=== PATIENT | male | born 1960 | race Caucasian/White ===

== ENCOUNTER 2016-03-08 07:30 | Inpatient (IN) ==
--- NOTE | 2016-03-04 09:38 | Cardiothoracic History & Phys ---
History of Present Illness Chief complaint: chest discomfort History of present illness: Mr. Cochran is a 55 year old male who presented to Dr. Wheat and 4 cardiac evaluation because of increasing symptoms of chest discomfort over the past 10 days. His had no symptoms of heart failure nor any strokelike symptoms. He is not diabetic but is hypertensive. He underwent cardiac catheterization as part of his evaluation which demonstrated significant coronary disease and he is to be admitted for urinary bypass surgery on 03/09/2016. Past medical history: Past medical history significant for hypertension and hyperlipidemia but otherwise has been relatively free of serious medical illnesses. He has had a hernia repair in the past and wrist surgery. There is history of premature coronary disease in both his mother and father side of the family. Review of systems noncontributory to the present illness and social history shows patient is a nonsmoker who does not drink alcohol. Physical examination: Patient is well-developed well-nourished man in no acute distress. Examination of the HEENT show the pupils are equal and react to light and extraocular motions are intact the oropharynx is benign. Seminal a snow of the neck shows that there are no masses and there are no bruits there is no thyromegaly. Examination chest shows it is clear to percussion and auscultation. Examination of heart reveals a regular sinus rhythm and there are no murmurs. Examination the abdomen shows no tenderness and there are no masses or organomegaly. Examination extremities shows no cyanosis or edema. Neurological exam is grossly intact. Assessment: Severe coronary artery disease Plan coronary bypass surgery 03/09/2016. Home Medications Medication Instructions Recorded Confirmed Type Aspirin [Ecotrin] 81 mg PO DAILY 02/24/16 02/24/16 History B Complex with Vitamin C [Vitamin 1 each PO DAILY 02/24/16 02/24/16 History B-Complex with Vit C] Co Q 10 50 mg PO DAILY 02/24/16 02/24/16 History Fosinopril Sodium 10 mg PO DAILY 02/24/16 02/24/16 History Metoprolol Succinate Xl [Toprol Xl] 25 mg PO DAILY 02/24/16 02/24/16 History Rosuvastatin Calcium [Crestor] 10 mg PO DAILY 02/24/16 02/24/16 History Allergies Allergy/AdvReac Type Severity Reaction Status Date / Time No Known Allergies Allergy Unverified 02/23/16 14:49 Medical,Surgical,& Family Hx - Medical History Neurology: No history of: Seizures - Social History Smoking Status: Never smoker
[~2016-03-08 07:30] MED LIST: DEXTROSE 50% 25 GM/50 ML VIAL IV PRN; GLUCAGON 1 MG VIAL IM PRN
[2016-03-08] MEDS ORDERED: ASPIRIN EC 81 MG TABLET PO SCH ×2 (09:00→21:00)
[2016-03-08] MEDS ORDERED: ROSUVASTATIN 10 MG TABLET PO SCH ×2 (09:00→21:00)
[2016-03-08] MEDS ORDERED: METOPROLOL SUCCINATE XL 25 MG TABLET PO SCH ×2 (09:00→21:00)
[2016-03-08 09:29] LABS: Basophils # 0.1 10*3/uL (0.0-0.2); Basophils % 1.1 % (0.0-0.8); Eosinophils # 0.3 10*3/uL (0.0-0.87); Hematocrit 42.4 VOL% (42.0-52.0); Hemoglobin 14.5 GM/DL (14.0-18.0); Immature Granulocytes % 0.2 %; Immature Granulocytes Absolute 0.01 #; Lymphocytes # 1.4 10*3/uL (1.4-4.0); Lymphocytes % 25.2 % (21.2-54.2); Mean Corpuscular HGB Conc 34.2 GM/DL (32-36); Mean Corpuscular Hemoglobin 30 PG (27-34); Mean Corpuscular Volume 88.7 FL (87-102); Mean Platelet Volume 9.4 FL (9.6-12.0); Monocytes # 0.6 10*3/uL (0.11-0.8); Neutrophils # 3.2 10*3/uL (1.4-7.4); Neutrophils % 57.5 % (38.7-73.9); Platelet Count 175 10*3/uL (130-400); Red Blood Count 4.78 10*6/uL (3.8-5.5); Red Cell Distribution Width 12.2 % (9.3-17.3); White Blood Count 5.6 10*3/uL (4.5-13.71)
[2016-03-08] MEDS ORDERED: CEFUROXIME INJ 1,500 MG in SODIUM CHLORIDE 0.9% 100 ML IV ONE (09:38)
[2016-03-08] MEDS ORDERED: SODIUM CHLORIDE 0.9% 1,000 ML IV SCH (10:00)
[2016-03-08 10:12] LABS: Albumin 3.8 G/DL (3.4-5.0); Bilirubin,Total 0.6 MG/DL (0.2-1.0); Calcium 8.5 MG/DL (8.5-10.1); Osmolality,Calculated 284.8 MOS/KG (273-304); Potassium 4.4 MMOL/L (3.5-5.1); Total Protein 6.5 G/DL (6.4-8.3)
--- NOTE | 2016-03-08 14:15 | XRay Report ---
XR chest 2V Indication: CAD Comparison: Chest x-ray dated February 24, 2016 Technique: Frontal and lateral views of the chest Findings: Heart size appears within normal limits. No focal consolidation, pleural effusion, or pneumothorax. Osseous and surrounding soft tissue structures appear grossly unchanged. IMPRESSION: No acute cardiopulmonary process demonstrated. PROCEDURE INTERPRETED AT [facility] DEPARTMENT OF RADIOLOGY Final Report Signed by: Dr Fortino Steele
[2016-03-08] MEDS: CHLORHEXIDINE 4% SOLN 118 ML BOTTLE TOP SCH ×2 (15:44→20:55)
[2016-03-08 18:11] LABS: ABG Base Excess 1.4 MMOL/L (-2.5-2.5); ABG HCO3 25.6 MMOL/L (20-26); ABG Oxygen Saturation 97.3 % (95-100); ABG PCO2 39.7 MM HG (35-48); ABG PH 7.421 (7.35-7.45); ABG PO2 86.9 MM HG (80-95); ABG TCO2 22.1 MMOL/L (23-27)
[2016-03-08] MEDS: CHLORHEXIDINE 0.12% ORAL RINSE 60 ML BOTTLE SWISH/SPIT SCH (21:02)
[2016-03-09] MEDS ORDERED: PAPAVERINE 60 MG/2 ML VIAL ONE ×2 (04:43→09:17)
[2016-03-09] MEDS ORDERED: VANCOMYCIN 1,000 MG VIAL ONE (04:44)
[2016-03-09] MEDS: CHLORHEXIDINE 0.12% ORAL RINSE 60 ML BOTTLE SWISH/SPIT SCH ×3 (05:53→21:40)
[2016-03-09] MEDS: CHLORHEXIDINE 4% SOLN 118 ML BOTTLE TOP SCH ×2 (05:53→13:40)
[2016-03-09] MEDS ORDERED: CEFUROXIME INJ 1,500 MG in SODIUM CHLORIDE 0.9% 100 ML IV ONE (06:00)
[2016-03-09] MEDS ORDERED: PANTOPRAZOLE 40 MG TABLET PO ONE (06:00)
[2016-03-09] MEDS ORDERED: DIAZEPAM 5 MG TABLET PO ONE (06:00)
[2016-03-09] MEDS ORDERED: SODIUM CHLORIDE 0.9% 1,000 ML IV SCH (06:00)
[2016-03-09] MEDS ORDERED: AMINOCAPROIC ACID 5,000 MG/20 ML VIAL IV ONE (06:42)
[2016-03-09] MEDS ORDERED: MINERAL OIL/PETROLATUM OPH OINT 3.5 GM TUBE ONE (06:42)
[2016-03-09] MEDS ORDERED: ESMOLOL 100 MG/10 ML VIAL IV ONE (06:42)
[2016-03-09] MEDS ORDERED: PHENYLEPHRINE 20 MG/250 ML PREMIX IV ONE (06:42)
[2016-03-09] MEDS ORDERED: NITROGLYCERIN 50 MG/250 ML BOTTLE IV ONE (06:42)
[2016-03-09] MEDS ORDERED: VECURONIUM 10 MG VIAL IV ONE (06:42)
[2016-03-09] MEDS ORDERED: LIDOCAINE 100 MG/5 ML SYRINGE ONE ×2 (06:42→11:05)
[2016-03-09] MEDS ORDERED: CALCIUM CHLORIDE 1,000 MG/10 ML SYRINGE IV ONE ×2 (06:42→09:34)
[2016-03-09 07:34] LABS: ABG Base Excess 2.2 MMOL/L (-2.5-2.5); ABG HCO3 26.5 MMOL/L (20-26); ABG Oxygen Saturation 99.5 % (95-100); ABG PCO2 40.2 MM HG (35-48); ABG PH 7.437 (7.35-7.45); ABG TCO2 27.7 MMOL/L (23-27); Glucose Heart Surgery 92 MG/DL (74-106); Hemoglobin Heart Surgery 14.6 G/DL (14.0-18.0); Ionized Calcium Arterial 1.12 MMOL/L (1.21-1.46); PCO2 Patient Temp Arterial 40.2 MMHG; PH Patient Temp Arterial 7.437; Patient Temperature 37 CELCIUS; Potassium Heart/CVR 3.9 MMOL/L (3.5-5.1); Sodium Heart/CVR 138 MMOL/L (135-145)
[2016-03-09 08:07] LABS: Apearance,Urine CLEAR (Clear); Bilirubin,Urine Negative (Negative); Blood, Urine Negative (Negative); Glucose,Urine (UA) Negative (Negative); Ketones,Urine Negative (Negative); Mucus,Urine Occasional /LPF (Occasional); Nitrite,Urine Negative (Negative); Protein,Urine Negative; RBC,Urine 5 /HPF (0-4); Squamous Epithelial Cell,Urine Occasional /HPF (0-10); Urine Color Yellow (Yellow); Urine Specific Gravity 1.018 (1.001-1.035); Urine Urobilinogen < 2.0 EU/DL (0.2-1.0); WBC,Urine <1 /HPF (0-6)
[2016-03-09 08:57] LABS: Hematocrit Heart Surgery 30.7 PERCENT (42-52); Hemoglobin Heart Surgery 9.9 G/DL (14.0-18.0); PCO2 Patient Temp Venous 38.8 MM HG; PH Patient Temp Venous 7.428; PO2 Patient Temp Venous 38.1 MM HG; Potassium Heart/CVR 4.5 MMOL/L (3.5-5.1); VBG Base Excess 1.4 MEQ/L (0-4); VBG HCO3 25.5 MEQ/L (24-28); VBG PCO2 44.9 MMHG (41-51); VBG PH 7.385; VBG PO2 46.9 MMHG (17-40)
[2016-03-09] MEDS ORDERED: HEPARIN 1,000 UNIT/1 ML VIAL ONE (09:17)
[2016-03-09] MEDS ORDERED: PHENYLEPHRINE DRIP 40 MG/250 ML PREMIX IV ONE (09:33)
[2016-03-09] MEDS ORDERED: NITROPRUSSIDE 50 MG/2 ML VIAL ONE (09:33)
[2016-03-09] MEDS ORDERED: SODIUM BICARBONATE 50 MEQ/50 ML VIAL IV ONE ×2 (09:33→11:05)
[2016-03-09] MEDS ORDERED: POTASSIUM CHLORIDE RIDER 100 ML IV ONE (09:34)
[2016-03-09 10:02] LABS: PCO2 Patient Temp Venous 36.6 MM HG; PH Patient Temp Venous 7.462; PO2 Patient Temp Venous 35.2 MM HG; Potassium Heart/CVR 4.3 MMOL/L (3.5-5.1); VBG Base Excess 2.5 MEQ/L (0-4); VBG HCO3 26.3 MEQ/L (24-28); VBG Oxygen Saturation 81.4 %; VBG PCO2 42.3 MMHG (41-51); VBG PH 7.418; VBG PO2 43.4 MMHG (17-40)
[2016-03-09 11:02] LABS: ABG Base Excess 1.6 MMOL/L (-2.5-2.5); ABG HCO3 26.1 MMOL/L (20-26); ABG Oxygen Saturation 98.2 % (95-100); ABG PCO2 40.6 MM HG (35-48); ABG PH 7.426 (7.35-7.45); ABG PO2 127.1 MM HG (80-95); ABG TCO2 27.3 MMOL/L (23-27); Glucose Heart Surgery 155 MG/DL (74-106); Hemoglobin Heart Surgery 12.7 G/DL (14.0-18.0); Ionized Calcium Arterial 1.28 MMOL/L (1.21-1.46); PCO2 Patient Temp Arterial 40.6 MMHG; PH Patient Temp Arterial 7.426; PO2 Patient Temp Arterial 127.1 MM HG; Patient Temperature 37 CELCIUS; Potassium Heart/CVR 3.5 MMOL/L (3.5-5.1); Sodium Heart/CVR 135 MMOL/L (135-145)
[2016-03-09] MEDS ORDERED: ALBUMIN 25% 25 GM/100 ML VIAL IV ONE (11:05)
[2016-03-09] MEDS ORDERED: PROTAMINE SULFATE 250 MG/25 ML VIAL IV ONE (11:05)
[2016-03-09] MEDS ORDERED: DEXTROSE 5% KCL 20 MEQ 20 MEQ/1,000 ML BAG IV ONE (11:05)
[2016-03-09] MEDS ORDERED: PHENYLEPHRINE DRIP 20 MG/250 ML PREMIX IV ONE (11:06)
[2016-03-09] MEDS ORDERED: HEPARIN 10,000 UNIT/10 ML VIAL ONE (11:06)
[2016-03-09] MEDS ORDERED: MANNITOL 12.5 GM/50 ML VIAL IV ONE (11:06)
[2016-03-09] MEDS ORDERED: MAGNESIUM SULFATE 1 GM/2 ML VIAL ONE (11:06)
[2016-03-09] MEDS ORDERED: FUROSEMIDE 20 MG/2 ML VIAL ONE (11:06)
[2016-03-09] MEDS ORDERED: methylPREDNISolone SOD SUC 1,000 MG/8 ML VIAL ONE (11:06)
--- NOTE | 2016-03-09 11:57 | Operative Note ---
Date of procedure: 03/09/16 Pre-op diagnosis: coronary artery disease Post-op diagnosis: same Procedure: Procedure: Coronary artery bypass grafting 4 with the left internal mammary grafted anterior descending coronary artery and saphenous vein grafts to the diagonal circumflex marginal and right coronary arteries. Findings: Patient is a 55-year-old man who in the remote past at undergone stent to his anterior descending coronary artery which subsequently was completely occluded. He has developed recent increase in his chest discomfort and cardiac catheterization demonstrated significant left main coronary stenosis and significant right coronary artery stenosis and occlusion of the anterior descending coronary artery. The time of surgery left ventricular function was noted to be essentially normal. The anterior descending coronary artery was a fairly large vessel beyond the area of occlusion and it was grafted using the left internal mammary artery. Saphenous vein grafts were placed to a large diagonal to a small circumflex marginal and to a large right coronary artery. Patient tolerated the procedure well was returned recovery in satisfactory condition. Procedure: Patient brought to the operating room placed on the operating table in supine position. After satisfactory induction of general anesthesia the chest abdomen and legs were prepped and draped in a sterile fashion. Greater saphenous vein was harvested from each lower leg and prepared as an arterial graft. Incisions in the leg were closed with 30 subcutaneous cutaneous Monopril and 3-0 subcuticular Monocryl. Standard sternotomy incision was made and the sternum was divided. Heart was suspended in a pericardial cradle and the left internal mammary artery was dissected free and prepared as an arterial graft. Patient was prepared for cardiopulmonary bypass with systemic heparinization and cannulation of the right atrium and ascending aorta. Cardiopulmonary bypass was begun and the aorta was crossclamped and the heart arrested with cardioplegia solution injected into the aortic root. Heart was protected during the period of crossclamping with topical saline slush. Distal anastomoses were constructed as noted above and following completion of these the aortic cross-clamp was removed reestablished and cardiac action. Proximal anastomoses were can flex constructed between the inflow ends of the saphenous vein graft and the ascending aorta. When these were completed the patient was weaned from cardiopulmonary bypass without difficulty and heparin effect reversed with protamine. Decannulation was carried out in the usual fashion with the defects in the ascending aorta closed with 3-0 Prolene and the defect in the right atrium also closed with 3-0 Prolene. The operative field was inspected for hemostasis when this was considered adequate the incision was closed with interrupted stainless steel wire and the sternum and 0 Monopril and the presternal fascia. Skin was closed with running subcuticular 3-0 Monocryl. 2 chest tubes were left in the anterior mediastinum and brought out through separate stab incision. Sterile dressings were applied and the patient was returned recovery in satisfactory condition. Anesthesia: PADMINI Surgeon / Physician: Lowell Lopez Estimated blood loss: other Specimens: (unable to determine because of cardiopulmonary bypass) Condition: stable Disposition: ICU Results - Labs CBC & BMP: 03/09/16 10:55 03/08/16 09:22 Discharge Plan - Discharge Medications No Action Metoprolol Succinate Xl [Toprol Xl] 25 mg PO BEDTIME Aspirin [Ecotrin] 81 mg PO BEDTIME Rosuvastatin Calcium [Crestor] 10 mg PO BEDTIME Fosinopril Sodium 10 mg PO BEDTIME B Complex with Vitamin C [Vitamin B-Complex with Vit C] 1 each PO BEDTIME Co Q 10 50 mg PO BEDTIME - Follow Up or Referral - Forms/Instructions
[2016-03-09] MEDS ORDERED: LACTATED RINGERS 250 ML IV PRN (11:59)
[2016-03-09] MEDS ORDERED: POTASSIUM CHLORIDE RIDER 10 MEQ in PREMIX 1 EACH IV PRN (11:59)
[2016-03-09] MEDS ORDERED: MORPHINE 2 MG/1 ML SYRINGE IV PRN (11:59)
[2016-03-09] MEDS ORDERED: PHENYLEPHRINE DRIP 40 MG/250 ML PREMIX IV PRN (11:59)
[2016-03-09] MEDS ORDERED: MORPHINE 10 MG/1 ML VIAL IV PRN (11:59)
[2016-03-09] MEDS ORDERED: NITROPRUSSIDE 100 MG in DEXTROSE 5% 250 ML IV PRN (11:59)
[2016-03-09] MEDS ORDERED: INSULIN REGULAR 100 UNIT/ML IV PRN (11:59)
[2016-03-09] MEDS ORDERED: DEXTROSE 50% 25 GM/50 ML VIAL IV PRN ×2 (11:59)
[2016-03-09] MEDS ORDERED: MAGNESIUM SULF RIDER 2 GM in PREMIX 1 EACH IV PRN (11:59)
[2016-03-09] MEDS ORDERED: VECURONIUM 10 MG VIAL IV PRN ×2 (11:59)
[2016-03-09] MEDS ORDERED: MAGNESIUM SULF RIDER 4 GM in PREMIX 1 EACH IV PRN (11:59)
[2016-03-09] MEDS ORDERED: ACETAMINOPHEN 650 MG SUPP RECTAL PRN (11:59)
[2016-03-09] MEDS ORDERED: ONDANSETRON 4 MG/2 ML VIAL IV PRN (11:59)
[2016-03-09] MEDS ORDERED: CALCIUM CHLORIDE 1,000 MG/10 ML SYRINGE IV PRN (11:59)
[2016-03-09] MEDS ORDERED: MIDAZOLAM 10 MG/2 ML VIAL IV PRN (11:59)
[2016-03-09] MEDS ORDERED: INSULIN REGULAR 100 UNIT/ML IV ONE ×2 (11:59→13:00)
[2016-03-09] MEDS ORDERED: SUFentanil 250 MCG/5 ML AMP ONE (12:00)
[2016-03-09] MEDS ORDERED: INSULIN REGULAR DRIP 100 ML IV SCH (12:00)
[2016-03-09] MEDS ORDERED: SODIUM CHLORIDE 0.45% 1,000 ML IV SCH ×2 (12:00)
[2016-03-09] MEDS ORDERED: SEVOFLURANE 1 UNIT/15 MINUTE INH ONE (12:00)
[2016-03-09] MEDS ORDERED: SODIUM CHLORIDE 0.9% 100 ML IV ONE (12:01)
[2016-03-09] MEDS ORDERED: LACTATED RINGERS 1,000 ML IV ONE (12:01)
[2016-03-09] MEDS ORDERED: MIDAZOLAM 10 MG/2 ML VIAL ONE (12:01)
[2016-03-09] MEDS ORDERED: ePHEDrine 50 MG/ML AMP ONE (12:01)
[2016-03-09] MEDS ORDERED: SODIUM CHLORIDE 0.9% 250 ML IV ONE (12:01)
[2016-03-09] MEDS ORDERED: SODIUM CHLORIDE 0.9% 1,000 ML IV ONE (12:01)
[2016-03-09] MEDS ORDERED: PROTAMINE SULFATE 50 MG/5 ML VIAL IV ONE ×2 (12:04→13:24)
[2016-03-09 12:13] LABS: ABG Base Excess -0.6 MMOL/L (-2.5-2.5); ABG HCO3 23.6 MMOL/L (20-26); ABG Oxygen Saturation 97.8 % (95-100); ABG PCO2 37.5 MM HG (35-48); ABG PH 7.417 (7.35-7.45); ABG PO2 105.6 MM HG (80-95); ABG TCO2 24.8 MMOL/L (23-27); Glucose Heart Surgery 146 MG/DL (74-106); Hemoglobin Heart Surgery 12.3 G/DL (14.0-18.0); Potassium Heart/CVR 3.2 MMOL/L (3.5-5.1)
[2016-03-09] MEDS: POTASSIUM CHLORIDE RIDER 20 MEQ in PREMIX 1 EACH IV PRN ×5 (12:15→23:05)
[2016-03-09] MEDS: ALBUMIN 5% 12.5 GM in PREMIX 1 EACH IV PRN ×5 (12:15→22:16)
[2016-03-09 12:17] LABS: Basophils % 0.2 % (0.0-0.8); Eosinophils # 0.1 10*3/uL (0.0-0.87); Eosinophils % 0.6 % (0.00-10.9); Hematocrit 34.2 VOL% (42.0-52.0); Hemoglobin 11.7 GM/DL (14.0-18.0); Immature Granulocytes % 0.7 %; Lymphocytes # 1.1 10*3/uL (1.4-4.0); Lymphocytes % 8.1 % (21.2-54.2); Mean Corpuscular HGB Conc 34.2 GM/DL (32-36); Mean Corpuscular Hemoglobin 31 PG (27-34); Mean Corpuscular Volume 89.3 FL (87-102); Mean Platelet Volume 9.7 FL (9.6-12.0); Monocytes # 0.7 10*3/uL (0.11-0.8); Monocytes % 4.8 % (1.7-12.7); Neutrophils # 11.6 10*3/uL (1.4-7.4); Neutrophils % 85.6 % (38.7-73.9); Platelet Count 135 10*3/uL (130-400); Red Blood Count 3.83 10*6/uL (3.8-5.5); Red Cell Distribution Width 12.3 % (9.3-17.3); White Blood Count 13.5 10*3/uL (4.5-13.71)
[2016-03-09 12:27] LABS: INR 1.2; PT Patient Result 12.7 SECS; Partial Thromboplastin Time 32.7 SECS (0-40)
[2016-03-09 12:51] LABS: Bilirubin,Total 1.6 MG/DL (0.2-1.0); Calcium 7.7 MG/DL (8.5-10.1); Magnesium 2.1 MG/DL (1.8-2.4); Osmolality,Calculated 295.3 MOS/KG (273-304); Potassium 3.6 MMOL/L (3.5-5.1); Total Protein 4.8 G/DL (6.4-8.3)
[2016-03-09] MEDS: MIDAZOLAM 2 MG/2 ML VIAL IV PRN ×2 (12:55→14:17)
[2016-03-09 13:00] LABS: CKMB % 15.6 %
[2016-03-09 13:09] LABS: Troponin I Only 4.35 NG/ML (0.00-0.045)
--- NOTE | 2016-03-09 13:14 | XRay Report ---
Referring Physician: Lowell Lopez Exam: XR chest 1V portable Date: March 09, 2016 at 12:35 PM Reason: Line placement Comparison: Chest 2 views March 08, 2016 Findings: An endotracheal tube is in place with its distal tip at the level of the sternoclavicular junctions, approximately 4.5 cm above the joel. A feeding tube is in place, extending into the stomach and beyond the [id number]. Mediastinal drains are suspected. There is a Atwood-Molly catheter with its distal tip in the region of the right descending pulmonary artery, and a right IJ catheter is present with its distal tip at the SVC/right atrial junction. The cardiac silhouette is normal in size, but the patient is status post interval sternotomy. There is minimal scattered atelectasis within both lower lung zones. There is also a questionable minimal pneumothorax at the right lung apex. The osseous structures otherwise appear stable. Impression: 1. Tubes and lines as above. 2. Interval sternotomy. 3. Minimal scattered atelectasis within both lower lung zones. 4. Questionable minimal pneumothorax at the right lung apex. A followup chest x-ray is recommended. This was discussed with the patient's nurse in CVR on March 09, 2016 at 10:10 PM. PROCEDURE INTERPRETED AT [facility] DEPARTMENT OF RADIOLOGY Final Report Signed by: Dr. Patsy Ortiz
[2016-03-09] MEDS: KETOROLAC 30 MG/1 ML VIAL IV SCH ×2 (13:36→18:00)
[2016-03-09 13:52] LABS: ABG Base Excess -0.2 MMOL/L (-2.5-2.5); ABG HCO3 24.3 MMOL/L (20-26); ABG PCO2 39.4 MM HG (35-48); ABG PH 7.401 (7.35-7.45); ABG TCO2 21.9 MMOL/L (23-27); Glucose Heart Surgery 165 MG/DL (74-106); Hematocrit Heart Surgery 34.3 PERCENT (42-52); Hemoglobin Heart Surgery 11.1 G/DL (14.0-18.0); Potassium Heart/CVR 3.3 MMOL/L (3.5-5.1)
--- NOTE | 2016-03-09 14:05 | Cardiology Consult Note ---
Assessment and Plan (1) Left main coronary artery disease Status: Acute Assessment and plan: 1. 55-year-old WF with controlled hypertension, treated dyslipidemia, status post non-STEMI postoperatively in 2002 after orthopedic surgery with LAD stenting and diagonal angioplasty at that time with good result. He now has several months of worsening exertional angina, and three-vessel disease noted at catheterization or this month including greater than 50% distal left main disease involving the ostium of the LAD. He is now immediately status post 4 vessel CABG hemodynamic stable 2. Cardiac index is modestly diminished as expected postoperatively a 2.2 L/m/m 3. Sinus mechanism rated the 90s 4. On modest doses of Hari-Synephrine 5. Hemoglobin stable 6. Normal LV function by left ventriculogram revealed this month Current Visit: Yes History of Present Illness - Consult Narrative History of present illness: Mr. Cochran is a 55 year old male well known to me status post non-STEMI postoperatively in 2002 after orthopedic surgery. I stented his significant LAD disease at that time and angioplasty his diagonal with good result. In recent months he developing episodes of exertional chest discomfort with stress test showing significant anteroapical ischemia. At heart catheterization early this month he was found to have in-stent occlusion of his mid LAD, with intermediate circumflex and RCA disease with normal LV function. He also had significant distal left main stenosis. He is now immediately status post CABG. He is still intubated and sedated. CC: Lowell Lopez MD - Home Medications and Allergies Home Medications: Home Medications Medication Instructions Recorded Confirmed Type Aspirin [Ecotrin] 81 mg PO BEDTIME 02/24/16 03/08/16 History B Complex with Vitamin C [Vitamin 1 each PO BEDTIME 02/24/16 03/08/16 History B-Complex with Vit C] Co Q 10 50 mg PO BEDTIME 02/24/16 03/08/16 History Fosinopril Sodium 10 mg PO BEDTIME 02/24/16 03/08/16 History Metoprolol Succinate Xl [Toprol Xl] 25 mg PO BEDTIME 02/24/16 03/08/16 History Rosuvastatin Calcium [Crestor] 10 mg PO BEDTIME 02/24/16 03/08/16 History Allergies/Adverse Reactions: Allergies Allergy/AdvReac Type Severity Reaction Status Date / Time Amoxicillin AdvReac Severe Vomiting Verified 03/08/16 09:50 Medical,Surgical,& Family Hx - Medical History Cardio: History of: CAD, Hypertension, SD Neurology: No history of: Seizures Endocrine: History of: Dyslipidemia - Surgical History Cardiac Surgeries: Sugical HX of: Cardiac Catheterization Orthopedic Surgeries: Surgical HX of;: Orthopedic Surgery (L wrist) - Family History Family History: Reports;: Family Heart Disease (father), Family Hypertension ( father), Family Stroke (sister) - Social History Smoking Status: Never smoker Frequency of Alcohol Use: Rarely Type of Drug Use: None Physical Examination Vital Signs Temp Pulse Resp BP Pulse Ox 98.1 F 59 L 18 127/77 97 03/08/16 09:49 03/08/16 09:49 03/08/16 09:49 03/08/16 09:49 03/08/16 09:49 General: Present: Other (intubated and sedated) Neck: Present: Midline Trachea Cardiac: Present: Reg Rate and Rhythm. Absent: Systolic Murmur, Diastolic Murmur Lungs: Present: Clear Ascult./Percussion (supine patient) Neuro: Present: Other Abdomen: Present: Soft Extremities: Present: No Edema. Absent: Cool Result/EKG - Labs CBC & BMP: 03/09/16 12:02 03/09/16 12:02 Labs: Laboratory Results - last 24 hr 03/08/16 03/08/16 03/09/16 09:22 Unknown 07:30 WBC RBC Hgb Hct MCV MCH MCHC RDW Plt Count 130 D MPV Neut % (Auto) Lymph % (Auto) [place] % (Auto) Eos % (Auto) Baso % (Auto) Neut # (Auto) Lymph # (Auto) [place] # (Auto) Eos # (Auto) Baso # (Auto) Immature Gran % Nucleated RBC % Immature Gran # Nucleated RBCs # INR PT Patient/Control Mix Circ Anticoag PTT Patient Temperature ABG pH 7.421 ABG pH at Pt Temp ABG pCO2 39.7 ABG pCO2 at Pt Temp ABG pO2 86.9 ABG pO2 at Pt Temp ABG HCO3 25.6 ABG Total CO2 22.1 L ABG O2 Saturation 97.3 ABG Base Excess 1.4 ABG Sodium VBG pH VBG pCO2 VBG pO2 VBG HCO3 VBG Total CO2 VBG O2 Saturation VBG Base Excess Hemoglobin Hematocrit Potassium Glucose Ionized Calcium FiO2 21.00 Sodium Chloride Carbon Dioxide Anion Gap BUN Creatinine GFR Calculation BUN/Creatinine Ratio Calculated Osmolality Calcium Venous Ioniz Calcium Magnesium Total Bilirubin AST ALT Alkaline Phosphatase Total Creatine Kinase CK-MB (CK-2) CK and CKMB Interp Troponin I Total Protein Albumin Globulin Albumin/Globulin Ratio Urine Color Urine Appearance Urine pH Ur Specific [place] Urine Protein Urine Glucose (UA) Urine Ketones Urine Blood Urine Nitrate Urine Bilirubin Urine Urobilinogen Urine Leukocytes Urine RBC Urine WBC Ur Squamous Epith Cells Urine Mucus Ur Culture Indicated? Blood Type O POSITIVE Antibody Screen Negative Crossmatch See Detail 03/09/16 03/09/16 03/09/16 07:30 07:48 08:55 WBC RBC Hgb Hct MCV MCH MCHC RDW Plt Count MPV Neut % (Auto) Lymph % (Auto) [place] % (Auto) Eos % (Auto) Baso % (Auto) Neut # (Auto) Lymph # (Auto) [place] # (Auto) Eos # (Auto) Baso # (Auto) Immature Gran % Nucleated RBC % Immature Gran # Nucleated RBCs # INR PT Patient/Control Mix Circ Anticoag PTT Patient Temperature 37 34 ABG pH 7.437 ABG pH at Pt Temp 7.437 7.428 ABG pCO2 40.2 ABG pCO2 at Pt Temp 40.2 38.8 ABG pO2 410.0 H ABG pO2 at Pt Temp 410.0 38.1 ABG HCO3 26.5 H ABG Total CO2 27.7 H ABG O2 Saturation 99.5 ABG Base Excess 2.2 ABG Sodium 138 133 L VBG pH 7.385 VBG pCO2 44.9 VBG pO2 46.9 H VBG HCO3 25.5 VBG Total CO2 24.5 VBG O2 Saturation 84.0 VBG Base Excess 1.4 Hemoglobin 14.6 9.9 L Hematocrit 43.0 30.7 L Potassium 3.9 4.5 Glucose 92 243 H Ionized Calcium 1.12 L FiO2 80.00 Sodium Chloride Carbon Dioxide Anion Gap BUN Creatinine GFR Calculation BUN/Creatinine Ratio Calculated Osmolality Calcium Venous Ioniz Calcium 0.96 L Magnesium Total Bilirubin AST ALT Alkaline Phosphatase Total Creatine Kinase CK-MB (CK-2) CK and CKMB Interp Troponin I Total Protein Albumin Globulin Albumin/Globulin Ratio Urine Color Yellow Urine Appearance Clear Urine pH 6.0 Ur Specific [place] 1.018 Urine Protein Negative Urine Glucose (UA) Negative Urine Ketones Negative Urine Blood Negative Urine Nitrate Negative Urine Bilirubin Negative Urine Urobilinogen < 2.0 H Urine Leukocytes Negative Urine RBC 5 Urine WBC <1 Ur Squamous Epith Cells Occasional Urine Mucus Occasional Ur Culture Indicated? Not indicated Blood Type Antibody Screen Crossmatch 03/09/16 03/09/16 03/09/16 09:55 10:55 10:55 WBC RBC Hgb Hct MCV MCH MCHC RDW Plt Count 100 L D MPV Neut % (Auto) Lymph % (Auto) [place] % (Auto) Eos % (Auto) Baso % (Auto) Neut # (Auto) Lymph # (Auto) [place] # (Auto) Eos # (Auto) Baso # (Auto) Immature Gran % Nucleated RBC % Immature Gran # Nucleated RBCs # INR PT Patient/Control Mix Circ Anticoag PTT Patient Temperature 34 37 ABG pH 7.426 ABG pH at Pt Temp 7.462 7.426 ABG pCO2 40.6 ABG pCO2 at Pt Temp 36.6 40.6 ABG pO2 127.1 H ABG pO2 at Pt Temp 35.2 127.1 ABG HCO3 26.1 H ABG Total CO2 27.3 H ABG O2 Saturation 98.2 ABG Base Excess 1.6 ABG Sodium 134 L 135 VBG pH 7.418 VBG pCO2 42.3 VBG pO2 43.4 H VBG HCO3 26.3 VBG Total CO2 24.3 VBG O2 Saturation 81.4 VBG Base Excess 2.5 Hemoglobin 12.0 L D 12.7 L Hematocrit 37.0 L 37.0 L Potassium 4.3 3.5 Glucose 204 H 155 H Ionized Calcium 1.28 FiO2 80.00 Sodium Chloride Carbon Dioxide Anion Gap BUN Creatinine GFR Calculation BUN/Creatinine Ratio Calculated Osmolality Calcium Venous Ioniz Calcium 1.08 L Magnesium Total Bilirubin AST ALT Alkaline Phosphatase Total Creatine Kinase CK-MB (CK-2) CK and CKMB Interp Troponin I Total Protein Albumin Globulin Albumin/Globulin Ratio Urine Color Urine Appearance Urine pH Ur Specific [place] Urine Protein Urine Glucose (UA) Urine Ketones Urine Blood Urine Nitrate Urine Bilirubin Urine Urobilinogen Urine Leukocytes Urine RBC Urine WBC Ur Squamous Epith Cells Urine Mucus Ur Culture Indicated? Blood Type Antibody Screen Crossmatch 03/09/16 03/09/16 03/09/16 12:02 12:02 12:02 WBC 13.5 D RBC 3.83 Hgb 11.7 L D Hct 34.2 L MCV 89.3 MCH 31 MCHC 34.2 RDW 12.3 Plt Count 135 D MPV 9.7 Neut % (Auto) 85.6 H Lymph % (Auto) 8.1 L [place] % (Auto) 4.8 Eos % (Auto) 0.6 Baso % (Auto) 0.2 Neut # (Auto) 11.6 H Lymph # (Auto) 1.1 L [place] # (Auto) 0.7 Eos # (Auto) 0.1 Baso # (Auto) 0.0 Immature Gran % 0.7 Nucleated RBC % 0.0 Immature Gran # 0.10 Nucleated RBCs # 0.00 INR 1.2 PT Patient/Control Mix 12.7 Circ Anticoag PTT 32.7 D Patient Temperature ABG pH ABG pH at Pt Temp ABG pCO2 ABG pCO2 at Pt Temp ABG pO2 ABG pO2 at Pt Temp ABG HCO3 ABG Total CO2 ABG O2 Saturation ABG Base Excess ABG Sodium VBG pH VBG pCO2 VBG pO2 VBG HCO3 VBG Total CO2 VBG O2 Saturation VBG Base Excess Hemoglobin Hematocrit Potassium 3.6 Glucose 148 H Ionized Calcium FiO2 Sodium 148 H Chloride 113 H Carbon Dioxide 25 Anion Gap 13.6 BUN 11 Creatinine 0.90 GFR Calculation 127 BUN/Creatinine Ratio 12.00 Calculated Osmolality 295.3 Calcium 7.7 L Venous Ioniz Calcium Magnesium 2.1 Total Bilirubin 1.60 H AST 30 ALT 28 Alkaline Phosphatase 47 Total Creatine Kinase CK-MB (CK-2) CK and CKMB Interp Troponin I Total Protein 4.8 L Albumin 3.0 L Globulin 1.8 L Albumin/Globulin Ratio 1.6 Urine Color Urine Appearance Urine pH Ur Specific [place] Urine Protein Urine Glucose (UA) Urine Ketones Urine Blood Urine Nitrate Urine Bilirubin Urine Urobilinogen Urine Leukocytes Urine RBC Urine WBC Ur Squamous Epith Cells Urine Mucus Ur Culture Indicated? Blood Type Antibody Screen Crossmatch 03/09/16 03/09/16 03/09/16 12:02 12:02 13:47 WBC RBC Hgb Hct MCV MCH MCHC RDW Plt Count MPV Neut % (Auto) Lymph % (Auto) [place] % (Auto) Eos % (Auto) Baso % (Auto) Neut # (Auto) Lymph # (Auto) [place] # (Auto) Eos # (Auto) Baso # (Auto) Immature Gran % Nucleated RBC % Immature Gran # Nucleated RBCs # INR PT Patient/Control Mix Circ Anticoag PTT Patient Temperature ABG pH 7.417 7.401 ABG pH at Pt Temp ABG pCO2 37.5 39.4 ABG pCO2 at Pt Temp ABG pO2 105.6 H 174.0 H ABG pO2 at Pt Temp ABG HCO3 23.6 24.3 ABG Total CO2 24.8 21.9 L ABG O2 Saturation 97.8 100.0 ABG Base Excess -0.6 -0.2 ABG Sodium VBG pH VBG pCO2 VBG pO2 VBG HCO3 VBG Total CO2 VBG O2 Saturation VBG Base Excess Hemoglobin 12.3 L 11.1 L Hematocrit 36.0 L 34.3 L Potassium 3.2 L 3.3 L Glucose 146 H 165 H Ionized Calcium FiO2 Sodium Chloride Carbon Dioxide Anion Gap BUN Creatinine GFR Calculation BUN/Creatinine Ratio Calculated Osmolality Calcium Venous Ioniz Calcium Magnesium Total Bilirubin AST ALT Alkaline Phosphatase Total Creatine Kinase 170 CK-MB (CK-2) 26.5 H CK and CKMB Interp 15.6 Troponin I 4.350 H Total Protein Albumin Globulin Albumin/Globulin Ratio Urine Color Urine Appearance Urine pH Ur Specific [place] Urine Protein Urine Glucose (UA) Urine Ketones Urine Blood Urine Nitrate Urine Bilirubin Urine Urobilinogen Urine Leukocytes Urine RBC Urine WBC Ur Squamous Epith Cells Urine Mucus Ur Culture Indicated? Blood Type Antibody Screen Crossmatch Quality Measures - VTE Contraindication to Pharmacological VTE Prophylaxis: High Risk of Bleeding Specialty Discharge - Follow Up or Referrals - Discharge Medications No Action Metoprolol Succinate Xl [Toprol Xl] 25 mg PO BEDTIME Aspirin [Ecotrin] 81 mg PO BEDTIME Rosuvastatin Calcium [Crestor] 10 mg PO BEDTIME Fosinopril Sodium 10 mg PO BEDTIME B Complex with Vitamin C [Vitamin B-Complex with Vit C] 1 each PO BEDTIME Co Q 10 50 mg PO BEDTIME
[2016-03-09 15:29] LABS: ABG Base Excess 0.2 MMOL/L (-2.5-2.5); ABG HCO3 24.6 MMOL/L (20-26); ABG PCO2 43.8 MM HG (35-48); ABG PH 7.375 (7.35-7.45); ABG TCO2 22.9 MMOL/L (23-27); Glucose Heart Surgery 158 MG/DL (74-106); Hematocrit Heart Surgery 35.1 PERCENT (42-52); Hemoglobin Heart Surgery 11.4 G/DL (14.0-18.0)
--- NOTE | 2016-03-09 15:51 | Operative Note ---
Date of procedure: 03/09/16 Pre-op diagnosis: CAD Post-op diagnosis: same Procedure: [place] Saphenous vein Assissting Dr. Lopez with CABG I made an incision on the medial side of the LLE, exposing the saphenous vein. It was circumferentially dissected, and branches are tied. It was harvested from the Ankle to the knee level. I then moved to assisst Dr. Lopez with cannulation of the aorta and Right atrium, instituting bypass, performing distal then proximal anastomosis. The pt tolerated the procedure well. Anesthesia: GETA Surgeon / Physician: Kayleigh Grove Estimated blood loss: other Condition: stable Disposition: ICU Results - Labs CBC & BMP: 03/09/16 12:02 03/09/16 12:02 Discharge Plan - Discharge Medications No Action Metoprolol Succinate Xl [Toprol Xl] 25 mg PO BEDTIME Aspirin [Ecotrin] 81 mg PO BEDTIME Rosuvastatin Calcium [Crestor] 10 mg PO BEDTIME Fosinopril Sodium 10 mg PO BEDTIME B Complex with Vitamin C [Vitamin B-Complex with Vit C] 1 each PO BEDTIME Co Q 10 50 mg PO BEDTIME - Follow Up or Referral - Forms/Instructions
[2016-03-09 17:04] LABS: ABG Base Excess -0.3 MMOL/L (-2.5-2.5); ABG HCO3 26.3 MMOL/L (20-26); ABG Oxygen Saturation 97.2 % (95-100); ABG PCO2 51.6 MM HG (35-48); ABG PH 7.325 (7.35-7.45); ABG PO2 104.4 MM HG (80-95); ABG TCO2 27.9 MMOL/L (23-27); Glucose Heart Surgery 152 MG/DL (74-106); Potassium Heart/CVR 4.3 MMOL/L (3.5-5.1)
[2016-03-09 19:55] LABS: ABG Base Excess -0.8 MMOL/L (-2.5-2.5); ABG HCO3 23.8 MMOL/L (20-26); ABG Oxygen Saturation 98.4 % (95-100); ABG PH 7.333 (7.35-7.45); ABG TCO2 23.1 MMOL/L (23-27); Glucose Heart Surgery 160 MG/DL (74-106); Hematocrit Heart Surgery 33.1 PERCENT (42-52); Hemoglobin Heart Surgery 10.7 G/DL (14.0-18.0); Potassium Heart/CVR 4.5 MMOL/L (3.5-5.1)
[2016-03-09] MEDS ORDERED: FUROSEMIDE 40 MG/4 ML VIAL IV ONE (20:01)
[2016-03-09 20:25] LABS: Troponin I Only 5.88 NG/ML (0.00-0.045)
[2016-03-09] MEDS: CEFUROXIME INJ 1,500 MG in SODIUM CHLORIDE 0.9% 100 ML IV SCH (20:58)
[2016-03-09 22:52] LABS: ABG Base Excess 0.8 MMOL/L (-2.5-2.5); ABG HCO3 25.1 MMOL/L (20-26); ABG PCO2 35.9 MM HG (35-48); ABG PH 7.443 (7.35-7.45); ABG PO2 94.1 MM HG (80-95); ABG TCO2 22.3 MMOL/L (23-27); Glucose Heart Surgery 142 MG/DL (74-106); Hematocrit Heart Surgery 31.1 PERCENT (42-52); Hemoglobin Heart Surgery 10.1 G/DL (14.0-18.0); Potassium Heart/CVR 3.7 MMOL/L (3.5-5.1)
[2016-03-09 23:54] LABS: ABG Base Excess 0.3 MMOL/L (-2.5-2.5); ABG HCO3 24.7 MMOL/L (20-26); ABG Oxygen Saturation 97.3 % (95-100); ABG PCO2 46.7 MM HG (35-48); ABG PH 7.357 (7.35-7.45); ABG PO2 87.5 MM HG (80-95); ABG TCO2 23.9 MMOL/L (23-27); Glucose Heart Surgery 130 MG/DL (74-106); Hematocrit Heart Surgery 30.7 PERCENT (42-52); Hemoglobin Heart Surgery 9.9 G/DL (14.0-18.0); Potassium Heart/CVR 3.9 MMOL/L (3.5-5.1)
[2016-03-10] MEDS: KETOROLAC 30 MG/1 ML VIAL IV SCH ×4 (00:27→17:03)
[2016-03-10 01:08] LABS: ABG Base Excess 1.6 MMOL/L (-2.5-2.5); ABG HCO3 26.4 MMOL/L (20-26); ABG Oxygen Saturation 96.1 % (95-100); ABG PCO2 42.5 MM HG (35-48); ABG PH 7.411 (7.35-7.45); ABG PO2 84.3 MM HG (80-95); ABG TCO2 27.7 MMOL/L (23-27); Glucose Heart Surgery 109 MG/DL (74-106); Hemoglobin Heart Surgery 10.7 G/DL (14.0-18.0); Potassium Heart/CVR 3.9 MMOL/L (3.5-5.1)
[2016-03-10 02:47] LABS: ABG Base Excess 1.4 MMOL/L (-2.5-2.5); ABG HCO3 25.6 MMOL/L (20-26); ABG Oxygen Saturation 95.8 % (95-100); ABG PO2 75.6 MM HG (80-95); ABG TCO2 24.3 MMOL/L (23-27); Glucose Heart Surgery 101 MG/DL (74-106); Potassium Heart/CVR 3.7 MMOL/L (3.5-5.1)
[2016-03-10] MEDS: POTASSIUM CHLORIDE RIDER 20 MEQ in PREMIX 1 EACH IV PRN (03:06)
[2016-03-10 03:21] LABS: Albumin 3.9 G/DL (3.4-5.0); Bilirubin,Direct 0.3 MG/DL (0.0-0.20); Bilirubin,Total 1.4 MG/DL (0.2-1.0); CKMB % 17.6 %; Calcium 8.2 MG/DL (8.5-10.1); Osmolality,Calculated 296.1 MOS/KG (273-304); Potassium 3.9 MMOL/L (3.5-5.1); Total Protein 5.7 G/DL (6.4-8.3)
[2016-03-10 03:28] LABS: Troponin I Only 10.5 NG/ML (0.00-0.045)
[2016-03-10 03:38] LABS: Basophils % 0.1 % (0.0-0.8); Hematocrit 27.1 VOL% (42.0-52.0); Hemoglobin 9.2 GM/DL (14.0-18.0); Immature Granulocytes % 0.5 %; Immature Granulocytes Absolute 0.08 #; Lymphocytes # 0.7 10*3/uL (1.4-4.0); Lymphocytes % 4.4 % (21.2-54.2); Mean Corpuscular HGB Conc 33.9 GM/DL (32-36); Mean Corpuscular Hemoglobin 31 PG (27-34); Mean Corpuscular Volume 89.7 FL (87-102); Mean Platelet Volume 10.2 FL (9.6-12.0); Monocytes # 0.7 10*3/uL (0.11-0.8); Monocytes % 4.3 % (1.7-12.7); Neutrophils # 13.8 10*3/uL (1.4-7.4); Neutrophils % 90.7 % (38.7-73.9); Platelet Count 102 10*3/uL (130-400); Red Blood Count 3.02 10*6/uL (3.8-5.5); Red Cell Distribution Width 12.6 % (9.3-17.3); White Blood Count 15.3 10*3/uL (4.5-13.71)
[2016-03-10 05:03] LABS: Lymphocytes 4 % (20-55); Segmented Neutrophils 96 % (50-85); Total Cells Counted 100
[2016-03-10 05:04] LABS: Hypochromasia Slight; Platelet Estimate Decreased
[2016-03-10] MEDS ORDERED: AMIODARONE INJ 150 MG in DEXTROSE 5% 100 ML IV ONE (06:10)
--- NOTE | 2016-03-10 06:10 | Cardiothoracic Progress Note ---
Cardiothoracic Subjective Interval history: Patient is awake alert and extubated. He had a stable night except for occasional PVCs. The blood pressure and heart rate are stable this morning and his cardiac output is 8.6 L/m. The blood gases have been satisfactory postextubation and his chest tube drainage is minimal and his chest tubes have been removed. Urine output has been satisfactory and his creatinine is within normal limits. I'm going to start him on by mouth amiodarone as a precautionary measure but I think he can be transferred to telemetry. He did have a troponin rise to 10 which is slightly above what we normally see in the postop CABG patient. Exam (Progress Note) - Constitutional Vitals: Period Temp Pulse Resp BP Sys/Grimes Pulse Ox Last 24 Hr 97.7 F-99.0 F 59-105 8-19 83-161/19-71 93-100 Result/EKG - Labs CBC & BMP: 03/10/16 03:25 03/10/16 02:35 Labs: Laboratory Results - last 24 hr 03/08/16 03/09/16 03/09/16 09:22 07:30 07:30 WBC RBC Hgb Hct MCV MCH MCHC RDW Plt Count 130 D MPV Neut % (Auto) Lymph % (Auto) Winston % (Auto) Eos % (Auto) Baso % (Auto) Neut # (Auto) Lymph # (Auto) Winston # (Auto) Eos # (Auto) Baso # (Auto) Total Counted Immature Gran % Nucleated RBC % Immature Gran # Segmented Neutrophils Lymphocytes Nucleated RBCs # Platelet Estimate Hypochromasia INR PT Patient/Control Mix Circ Anticoag PTT Patient Temperature 37 ABG pH 7.437 ABG pH at Pt Temp 7.437 ABG pCO2 40.2 ABG pCO2 at Pt Temp 40.2 ABG pO2 410.0 H ABG pO2 at Pt Temp 410.0 ABG HCO3 26.5 H ABG Total CO2 27.7 H ABG O2 Saturation 99.5 ABG Base Excess 2.2 ABG Sodium 138 VBG pH VBG pCO2 VBG pO2 VBG HCO3 VBG Total CO2 VBG O2 Saturation VBG Base Excess Hemoglobin 14.6 Hematocrit 43.0 Potassium 3.9 Glucose 92 Ionized Calcium 1.12 L FiO2 Sodium Chloride Carbon Dioxide Anion Gap BUN Creatinine GFR Calculation BUN/Creatinine Ratio Calculated Osmolality Calcium Venous Ioniz Calcium Magnesium Total Bilirubin Direct Bilirubin AST ALT Alkaline Phosphatase Total Creatine Kinase CK-MB (CK-2) CK and CKMB Interp Troponin I Total Protein Albumin Globulin Albumin/Globulin Ratio Urine Color Urine Appearance Urine pH Ur Specific [place] Urine Protein Urine Glucose (UA) Urine Ketones Urine Blood Urine Nitrate Urine Bilirubin Urine Urobilinogen Urine Leukocytes Urine RBC Urine WBC Ur Squamous Epith Cells Urine Mucus Ur Culture Indicated? Blood Type O POSITIVE Antibody Screen Negative Crossmatch See Detail 03/09/16 03/09/16 03/09/16 07:48 08:55 09:55 WBC RBC Hgb Hct MCV MCH MCHC RDW Plt Count MPV Neut % (Auto) Lymph % (Auto) Winston % (Auto) Eos % (Auto) Baso % (Auto) Neut # (Auto) Lymph # (Auto) Winston # (Auto) Eos # (Auto) Baso # (Auto) Total Counted Immature Gran % Nucleated RBC % Immature Gran # Segmented Neutrophils Lymphocytes Nucleated RBCs # Platelet Estimate Hypochromasia INR PT Patient/Control Mix Circ Anticoag PTT Patient Temperature 34 34 ABG pH ABG pH at Pt Temp 7.428 7.462 ABG pCO2 ABG pCO2 at Pt Temp 38.8 36.6 ABG pO2 ABG pO2 at Pt Temp 38.1 35.2 ABG HCO3 ABG Total CO2 ABG O2 Saturation ABG Base Excess ABG Sodium 133 L 134 L VBG pH 7.385 7.418 VBG pCO2 44.9 42.3 VBG pO2 46.9 H 43.4 H VBG HCO3 25.5 26.3 VBG Total CO2 24.5 24.3 VBG O2 Saturation 84.0 81.4 VBG Base Excess 1.4 2.5 Hemoglobin 9.9 L 12.0 L D Hematocrit 30.7 L 37.0 L Potassium 4.5 4.3 Glucose 243 H 204 H Ionized Calcium FiO2 80.00 80.00 Sodium Chloride Carbon Dioxide Anion Gap BUN Creatinine GFR Calculation BUN/Creatinine Ratio Calculated Osmolality Calcium Venous Ioniz Calcium 0.96 L 1.08 L Magnesium Total Bilirubin Direct Bilirubin AST ALT Alkaline Phosphatase Total Creatine Kinase CK-MB (CK-2) CK and CKMB Interp Troponin I Total Protein Albumin Globulin Albumin/Globulin Ratio Urine Color Yellow Urine Appearance Clear Urine pH 6.0 Ur Specific [place] 1.018 Urine Protein Negative Urine Glucose (UA) Negative Urine Ketones Negative Urine Blood Negative Urine Nitrate Negative Urine Bilirubin Negative Urine Urobilinogen < 2.0 H Urine Leukocytes Negative Urine RBC 5 Urine WBC <1 Ur Squamous Epith Cells Occasional Urine Mucus Occasional Ur Culture Indicated? Not indicated Blood Type Antibody Screen Crossmatch 03/09/16 03/09/16 03/09/16 10:55 10:55 12:02 WBC 13.5 D RBC 3.83 Hgb 11.7 L D Hct 34.2 L MCV 89.3 MCH 31 MCHC 34.2 RDW 12.3 Plt Count 100 L D 135 D MPV 9.7 Neut % (Auto) 85.6 H Lymph % (Auto) 8.1 L Winston % (Auto) 4.8 Eos % (Auto) 0.6 Baso % (Auto) 0.2 Neut # (Auto) 11.6 H Lymph # (Auto) 1.1 L Winston # (Auto) 0.7 Eos # (Auto) 0.1 Baso # (Auto) 0.0 Total Counted Immature Gran % 0.7 Nucleated RBC % 0.0 Immature Gran # 0.10 Segmented Neutrophils Lymphocytes Nucleated RBCs # 0.00 Platelet Estimate Hypochromasia INR PT Patient/Control Mix Circ Anticoag PTT Patient Temperature 37 ABG pH 7.426 ABG pH at Pt Temp 7.426 ABG pCO2 40.6 ABG pCO2 at Pt Temp 40.6 ABG pO2 127.1 H ABG pO2 at Pt Temp 127.1 ABG HCO3 26.1 H ABG Total CO2 27.3 H ABG O2 Saturation 98.2 ABG Base Excess 1.6 ABG Sodium 135 VBG pH VBG pCO2 VBG pO2 VBG HCO3 VBG Total CO2 VBG O2 Saturation VBG Base Excess Hemoglobin 12.7 L Hematocrit 37.0 L Potassium 3.5 Glucose 155 H Ionized Calcium 1.28 FiO2 Sodium Chloride Carbon Dioxide Anion Gap BUN Creatinine GFR Calculation BUN/Creatinine Ratio Calculated Osmolality Calcium Venous Ioniz Calcium Magnesium Total Bilirubin Direct Bilirubin AST ALT Alkaline Phosphatase Total Creatine Kinase CK-MB (CK-2) CK and CKMB Interp Troponin I Total Protein Albumin Globulin Albumin/Globulin Ratio Urine Color Urine Appearance Urine pH Ur Specific [place] Urine Protein Urine Glucose (UA) Urine Ketones Urine Blood Urine Nitrate Urine Bilirubin Urine Urobilinogen Urine Leukocytes Urine RBC Urine WBC Ur Squamous Epith Cells Urine Mucus Ur Culture Indicated? Blood Type Antibody Screen Crossmatch 03/09/16 03/09/1616 12:02 12:02 12:02 WBC RBC Hgb Hct MCV MCH MCHC RDW Plt Count MPV Neut % (Auto) Lymph % (Auto) [place] % (Auto) Eos % (Auto) Baso % (Auto) Neut # (Auto) Lymph # (Auto) [place] # (Auto) Eos # (Auto) Baso # (Auto) Total Counted Immature Gran % Nucleated RBC % Immature Gran # Segmented Neutrophils Lymphocytes Nucleated RBCs # Platelet Estimate Hypochromasia INR 1.2 PT Patient/Control Mix 12.7 Circ Anticoag PTT 32.7 D Patient Temperature ABG pH 7.417 ABG pH at Pt Temp ABG pCO2 37.5 ABG pCO2 at Pt Temp ABG pO2 105.6 H ABG pO2 at Pt Temp ABG HCO3 23.6 ABG Total CO2 24.8 ABG O2 Saturation 97.8 ABG Base Excess -0.6 ABG Sodium VBG pH VBG pCO2 VBG pO2 VBG HCO3 VBG Total CO2 VBG O2 Saturation VBG Base Excess Hemoglobin 12.3 L Hematocrit 36.0 L Potassium 3.6 3.2 L Glucose 148 H 146 H Ionized Calcium FiO2 Sodium 148 H Chloride 113 H Carbon Dioxide 25 Anion Gap 13.6 BUN 11 Creatinine 0.90 GFR Calculation 127 BUN/Creatinine Ratio 12.00 Calculated Osmolality 295.3 Calcium 7.7 L Venous Ioniz Calcium Magnesium 2.1 Total Bilirubin 1.60 H Direct Bilirubin AST 30 ALT 28 Alkaline Phosphatase 47 Total Creatine Kinase CK-MB (CK-2) CK and CKMB Interp Troponin I Total Protein 4.8 L Albumin 3.0 L Globulin 1.8 L Albumin/Globulin Ratio 1.6 Urine Color Urine Appearance Urine pH Ur Specific [place] Urine Protein Urine Glucose (UA) Urine Ketones Urine Blood Urine Nitrate Urine Bilirubin Urine Urobilinogen Urine Leukocytes Urine RBC Urine WBC Ur Squamous Epith Cells Urine Mucus Ur Culture Indicated? Blood Type Antibody Screen Crossmatch 03/09/16 03/09/16 03/09/16 12:02 13:47 15:22 WBC RBC Hgb Hct MCV MCH MCHC RDW Plt Count MPV Neut % (Auto) Lymph % (Auto) [place] % (Auto) Eos % (Auto) Baso % (Auto) Neut # (Auto) Lymph # (Auto) [place] # (Auto) Eos # (Auto) Baso # (Auto) Total Counted Immature Gran % Nucleated RBC % Immature Gran # Segmented Neutrophils Lymphocytes Nucleated RBCs # Platelet Estimate Hypochromasia INR PT Patient/Control Mix Circ Anticoag PTT Patient Temperature ABG pH 7.401 7.375 ABG pH at Pt Temp ABG pCO2 39.4 43.8 ABG pCO2 at Pt Temp ABG pO2 174.0 H 101.0 H ABG pO2 at Pt Temp ABG HCO3 24.3 24.6 ABG Total CO2 21.9 L 22.9 L ABG O2 Saturation 100.0 98.0 ABG Base Excess -0.2 0.2 ABG Sodium VBG pH VBG pCO2 VBG pO2 VBG HCO3 VBG Total CO2 VBG O2 Saturation VBG Base Excess Hemoglobin 11.1 L 11.4 L Hematocrit 34.3 L 35.1 L Potassium 3.3 L 4.0 Glucose 165 H 158 H Ionized Calcium FiO2 Sodium Chloride Carbon Dioxide Anion Gap BUN Creatinine GFR Calculation BUN/Creatinine Ratio Calculated Osmolality Calcium Venous Ioniz Calcium Magnesium Total Bilirubin Direct Bilirubin AST ALT Alkaline Phosphatase Total Creatine Kinase 170 CK-MB (CK-2) 26.5 H CK and CKMB Interp 15.6 Troponin I 4.350 H Total Protein Albumin Globulin Albumin/Globulin Ratio Urine Color Urine Appearance Urine pH Ur Specific [place] Urine Protein Urine Glucose (UA) Urine Ketones Urine Blood Urine Nitrate Urine Bilirubin Urine Urobilinogen Urine Leukocytes Urine RBC Urine WBC Ur Squamous Epith Cells Urine Mucus Ur Culture Indicated? Blood Type Antibody Screen Crossmatch 03/09/16 03/09/16 03/09/16 17:00 19:35 20:00 WBC RBC Hgb Hct MCV MCH MCHC RDW Plt Count MPV Neut % (Auto) Lymph % (Auto) [place] % (Auto) Eos % (Auto) Baso % (Auto) Neut # (Auto) Lymph # (Auto) Winston # (Auto) Eos # (Auto) Baso # (Auto) Total Counted Immature Gran % Nucleated RBC % Immature Gran # Segmented Neutrophils Lymphocytes Nucleated RBCs # Platelet Estimate Hypochromasia INR PT Patient/Control Mix Circ Anticoag PTT Patient Temperature ABG pH 7.325 L 7.333 L ABG pH at Pt Temp ABG pCO2 51.6 H 48.0 ABG pCO2 at Pt Temp ABG pO2 104.4 H 108.0 H ABG pO2 at Pt Temp ABG HCO3 26.3 H 23.8 ABG Total CO2 27.9 H 23.1 ABG O2 Saturation 97.2 98.4 ABG Base Excess -0.3 -0.8 ABG Sodium VBG pH VBG pCO2 VBG pO2 VBG HCO3 VBG Total CO2 VBG O2 Saturation VBG Base Excess Hemoglobin 12.0 L 10.7 L Hematocrit 35.0 L 33.1 L Potassium 4.3 4.5 Glucose 152 H 160 H Ionized Calcium FiO2 Sodium Chloride Carbon Dioxide Anion Gap BUN Creatinine GFR Calculation BUN/Creatinine Ratio Calculated Osmolality Calcium Venous Ioniz Calcium Magnesium Total Bilirubin Direct Bilirubin AST ALT Alkaline Phosphatase Total Creatine Kinase 341 H D CK-MB (CK-2) 61.5 H D CK and CKMB Interp 18.0 Troponin I 5.880 H D Total Protein Albumin Globulin Albumin/Globulin Ratio Urine Color Urine Appearance Urine pH Ur Specific [place] Urine Protein Urine Glucose (UA) Urine Ketones Urine Blood Urine Nitrate Urine Bilirubin Urine Urobilinogen Urine Leukocytes Urine RBC Urine WBC Ur Squamous Epith Cells Urine Mucus Ur Culture Indicated? Blood Type Antibody Screen Crossmatch 03/09/16 03/09/16 03/10/16 22:48 23:48 01:05 WBC RBC Hgb Hct MCV MCH MCHC RDW Plt Count MPV Neut % (Auto) Lymph % (Auto) [place] % (Auto) Eos % (Auto) Baso % (Auto) Neut # (Auto) Lymph # (Auto) Winston # (Auto) Eos # (Auto) Baso # (Auto) Total Counted Immature Gran % Nucleated RBC % Immature Gran # Segmented Neutrophils Lymphocytes Nucleated RBCs # Platelet Estimate Hypochromasia INR PT Patient/Control Mix Circ Anticoag PTT Patient Temperature ABG pH 7.443 7.357 7.411 ABG pH at Pt Temp ABG pCO2 35.9 46.7 42.5 ABG pCO2 at Pt Temp ABG pO2 94.1 87.5 84.3 ABG pO2 at Pt Temp ABG HCO3 25.1 24.7 26.4 H ABG Total CO2 22.3 L 23.9 27.7 H ABG O2 Saturation 98.0 97.3 96.1 ABG Base Excess 0.8 0.3 1.6 ABG Sodium VBG pH VBG pCO2 VBG pO2 VBG HCO3 VBG Total CO2 VBG O2 Saturation VBG Base Excess Hemoglobin 10.1 L 9.9 L 10.7 L Hematocrit 31.1 L 30.7 L 31.0 L Potassium 3.7 3.9 3.9 Glucose 142 H 130 H 109 H Ionized Calcium FiO2 Sodium Chloride Carbon Dioxide Anion Gap BUN Creatinine GFR Calculation BUN/Creatinine Ratio Calculated Osmolality Calcium Venous Ioniz Calcium Magnesium Total Bilirubin Direct Bilirubin AST ALT Alkaline Phosphatase Total Creatine Kinase CK-MB (CK-2) CK and CKMB Interp Troponin I Total Protein Albumin Globulin Albumin/Globulin Ratio Urine Color Urine Appearance Urine pH Ur Specific [place] Urine Protein Urine Glucose (UA) Urine Ketones Urine Blood Urine Nitrate Urine Bilirubin Urine Urobilinogen Urine Leukocytes Urine RBC Urine WBC Ur Squamous Epith Cells Urine Mucus Ur Culture Indicated? Blood Type Antibody Screen Crossmatch 03/10/16 03/10/16 03/10/16 02:35 02:35 03:25 WBC 15.3 H RBC 3.02 L D Hgb 9.2 L D Hct 27.1 L MCV 89.7 MCH 31 MCHC 33.9 RDW 12.6 Plt Count 102 L D MPV 10.2 Neut % (Auto) 90.7 H Lymph % (Auto) 4.4 L Winston % (Auto) 4.3 Eos % (Auto) 0.0 Baso % (Auto) 0.1 Neut # (Auto) 13.8 H Lymph # (Auto) 0.7 L Winston # (Auto) 0.7 Eos # (Auto) 0.0 Baso # (Auto) 0.0 Total Counted 100 Immature Gran % 0.5 Nucleated RBC % 0.0 Immature Gran # 0.08 Segmented Neutrophils 96 H Lymphocytes 4 L Nucleated RBCs # 0.00 Platelet Estimate Decreased Hypochromasia Slight INR PT Patient/Control Mix Circ Anticoag PTT Patient Temperature ABG pH 7.390 ABG pH at Pt Temp ABG pCO2 44.0 ABG pCO2 at Pt Temp ABG pO2 75.6 L ABG pO2 at Pt Temp ABG HCO3 25.6 ABG Total CO2 24.3 ABG O2 Saturation 95.8 ABG Base Excess 1.4 ABG Sodium VBG pH VBG pCO2 VBG pO2 VBG HCO3 VBG Total CO2 VBG O2 Saturation VBG Base Excess Hemoglobin 10.0 L Hematocrit 31.0 L Potassium 3.9 3.7 Glucose 92 101 Ionized Calcium FiO2 Sodium 149 H Chloride 113 H Carbon Dioxide 27 Anion Gap 12.9 BUN 15 Creatinine 1.00 GFR Calculation 112 BUN/Creatinine Ratio 15.00 Calculated Osmolality 296.1 Calcium 8.2 L Venous Ioniz Calcium Magnesium 2.0 Total Bilirubin 1.40 H Direct Bilirubin 0.3 H AST 93 H ALT 32 Alkaline Phosphatase 41 L Total Creatine Kinase 574 H D CK-MB (CK-2) 100.9 H D CK and CKMB Interp 17.6 Troponin I 10.500 H D Total Protein 5.7 L Albumin 3.9 Globulin 1.8 L Albumin/Globulin Ratio 2.1 Urine Color Urine Appearance Urine pH Ur Specific [place] Urine Protein Urine Glucose (UA) Urine Ketones Urine Blood Urine Nitrate Urine Bilirubin Urine Urobilinogen Urine Leukocytes Urine RBC Urine WBC Ur Squamous Epith Cells Urine Mucus Ur Culture Indicated? Blood Type Antibody Screen Crossmatch Quality Measures - VTE Contraindication to Pharmacological VTE Prophylaxis: High Risk of Bleeding Specialty Discharge - Follow Up or Referrals - Discharge Medications No Action Metoprolol Succinate Xl [Toprol Xl] 25 mg PO BEDTIME Aspirin [Ecotrin] 81 mg PO BEDTIME Rosuvastatin Calcium [Crestor] 10 mg PO BEDTIME Fosinopril Sodium 10 mg PO BEDTIME B Complex with Vitamin C [Vitamin B-Complex with Vit C] 1 each PO BEDTIME Co Q 10 50 mg PO BEDTIME
[2016-03-10] MEDS ORDERED: ZALEPLON 5 MG CAPSULE PO PRN (06:17)
[2016-03-10] MEDS ORDERED: POTASSIUM CHLORIDE 20 MEQ TABLET PO PRN (06:17)
[2016-03-10] MEDS ORDERED: ONDANSETRON 4 MG/2 ML VIAL IV PRN (06:17)
[2016-03-10] MEDS ORDERED: MAGNESIUM SULF RIDER 4 GM in PREMIX 1 EACH IV PRN (06:17)
[2016-03-10] MEDS ORDERED: DEXTROSE 50% 25 GM/50 ML VIAL IV PRN ×2 (06:17)
[2016-03-10] MEDS ORDERED: GLUCAGON 1 MG VIAL IM PRN ×2 (06:17)
[2016-03-10] MEDS ORDERED: MAGNESIUM SULF RIDER 2 GM in PREMIX 1 EACH IV PRN (06:17)
[2016-03-10] MEDS ORDERED: ALUMINUM/MAGNES/SIMETH MAX STR 30 ML UDCUP PO PRN (06:17)
[2016-03-10] MEDS ORDERED: ACETAMINOPHEN 325 MG TABLET PO PRN (06:17)
[2016-03-10] MEDS: MIDAZOLAM 2 MG/2 ML VIAL IV PRN (06:45)
--- NOTE | 2016-03-10 06:53 | EKG Report ---
Stationary ECG Study [facility] Test Date: 03/10/2016 6:52:15 AM Pat Name: CHAN HASSAN Department: Room: 103 Gender: M [employer]: : 1960 Requested by: Lowell Valdivia Order Number: [id number] Reading MD: RAYA KEENAN Intervals [place] Rate: 83 P: 42 WV: 132 QRS: 18 QRSD: 91 T: 12 QT: 376 QTc: 416 Interpretive Statements SINUS [id number] NONSPECIFIC T-WAVE ABNORMALITY Electronically Signed On 03-10-16 14:40:55 [employer] by RAYA KEENAN [email or web address]
--- NOTE | 2016-03-10 07:18 | Anesthesia ---
Anesthesia Post OP - Post Ansesthetic Evaluation Patient seen in post op: Yes Resp: within normal limits CV: within normal limits Mental: within normal limits Temp: within normal limits [id number]: within normal limits Nausea and Vomiting: within normal limits Pain: within normal limits Other:: Awake. extubated. VSS No known anesthesia complaints/complications
--- NOTE | 2016-03-10 07:45 | XRay Report ---
XR chest 1V portable Indication: Post chest tube removal, look for pneumothorax Comparison: Chest x-ray dated March 09, 2016 Technique: Single frontal view of the chest Findings: Interval extubation and removal of chest tubes. [place]-Molly catheter and right jugular catheter appear unchanged. Continued cardiomegaly status post sternotomy. Mild bibasilar atelectasis and probable small left pleural fluid. No definite pneumothorax Osseous and surrounding soft tissue structures appear grossly unchanged. IMPRESSION: Mild bibasilar atelectasis and small left pleural fluid. PROCEDURE INTERPRETED AT [facility] DEPARTMENT OF RADIOLOGY Final Report Signed by: Dr Fortino Steele
[2016-03-10] MEDS: SODIUM CHLOR 0.45% KCL 20 MEQ 20 MEQ/1,000 ML BAG IV SCH (08:09)
[2016-03-10] MEDS: CEFUROXIME INJ 1,500 MG in SODIUM CHLORIDE 0.9% 100 ML IV SCH (08:09)
[2016-03-10] MEDS: ASPIRIN EC 325 MG TABLET PO SCH (08:10)
[2016-03-10] MEDS: FERROUS SULFATE 325 MG TABLET PO SCH (08:10)
[2016-03-10] MEDS: DOCUSATE SODIUM 100 MG CAPSULE PO SCH (08:10)
[2016-03-10] MEDS: PANTOPRAZOLE 40 MG TABLET PO SCH (08:10)
[2016-03-10] MEDS: AMIODARONE 200 MG TABLET PO SCH ×2 (08:10→20:40)
[2016-03-10] MEDS: CHLORHEXIDINE 0.12% ORAL RINSE 60 ML BOTTLE SWISH/SPIT SCH (08:11)
[2016-03-10] MEDS ORDERED: CHLORHEXIDINE 0.12% ORAL RINSE 60 ML BOTTLE SWISH/SPIT SCH (09:00)
--- NOTE | 2016-03-10 09:54 | Cardiology Progress Note ---
Assessment and Plan (1) Left main coronary artery disease Status: Acute Assessment and plan: 1. 55-year-old WF with controlled hypertension, treated dyslipidemia, status post non-STEMI postoperatively in 2002 after orthopedic surgery with LAD stenting and diagonal angioplasty at that time with good result. He now has several months of worsening exertional angina, and three-vessel disease noted at catheterization or this month including greater than 50% distal left main disease involving the ostium of the LAD. He is now immediately status post 4 vessel CABG hemodynamic stable 2. Cardiac index is modestly diminished as expected postoperatively a 2.2 L/m/m 3. Sinus mechanism rated the 90s 4. On modest doses of Hari-Synephrine 5. Hemoglobin stable 6. Normal LV function by left ventriculogram revealed this month March 10 uptake: 1. Postoperative day 1 status post 4 vessel CABG doing very well clinically on the floor without shortness of breath or significant complaint 2. Hematocrit is dropped from 42% a 27+ percent; follow-up in the morning 3. Maintaining normal sinus rhythm 4. Postop troponin of 10 is noted 5. Normal LV function noted preoperatively 6. I recommended cardiovascular rehabilitation, which he plans to go to Current Visit: Yes Cardiology - PN: Subj Interval history: Mr. Elias is very talkative and has no complaints. He recalls having a clogging his tube that had to be suctioned out prior to extubation early this morning. He has no shortness of breath and is using his incentive spirometry. He has no dizziness or active bleeding. Exam (Progress Note) - Constitutional Vitals: Period Temp Pulse Resp BP Sys/Grimes Pulse Ox Last 24 Hr 97.7 F-99.0 F 75-105 8-21 83-162/19-71 93-100 General appearance: no acute distress, over weight - Head Head exam: Present: normal inspection, normocephalic, atraumatic - Neck Neck exam: Present: normal inspection - Respiratory Respiratory exam: Present: rales. Absent: stridor, wheezes - Cardiovascular Cardiovascular exam: Present: regular rate and rhythm. Absent: diastolic murmur , rubs, systolic murmur - GI/Abdominal GI/Abdominal exam: Present: soft. Absent: tenderness - Extremities Exam Extremities exam: Present: edema (slight edema bilaterally at the vein harvest sites) Result/EKG - Labs CBC & BMP: 03/10/16 03:25 03/10/16 05:50 Labs: Laboratory Results - last 24 hr 03/08/16 03/09/16 03/09/16 09:22 09:55 10:55 WBC RBC Hgb Hct MCV MCH MCHC RDW Plt Count 100 L D MPV Neut % (Auto) Lymph % (Auto) [place] % (Auto) Eos % (Auto) Baso % (Auto) Neut # (Auto) Lymph # (Auto) [place] # (Auto) Eos # (Auto) Baso # (Auto) Total Counted Immature Gran % Nucleated RBC % Immature Gran # Segmented Neutrophils Lymphocytes Nucleated RBCs # Platelet Estimate Hypochromasia INR PT Patient/Control Mix Circ Anticoag PTT Patient Temperature 34 ABG pH ABG pH at Pt Temp 7.462 ABG pCO2 ABG pCO2 at Pt Temp 36.6 ABG pO2 ABG pO2 at Pt Temp 35.2 ABG HCO3 ABG Total CO2 ABG O2 Saturation ABG Base Excess ABG Sodium 134 L VBG pH 7.418 VBG pCO2 42.3 VBG pO2 43.4 H VBG HCO3 26.3 VBG Total CO2 24.3 VBG O2 Saturation 81.4 VBG Base Excess 2.5 Hemoglobin 12.0 L D Hematocrit 37.0 L Potassium 4.3 Glucose 204 H Ionized Calcium FiO2 80.00 Sodium Chloride Carbon Dioxide Anion Gap BUN Creatinine GFR Calculation BUN/Creatinine Ratio POC Glucose Calculated Osmolality Calcium Venous Ioniz Calcium 1.08 L Magnesium Total Bilirubin Direct Bilirubin AST ALT Alkaline Phosphatase Total Creatine Kinase CK-MB (CK-2) CK and CKMB Interp Troponin I Total Protein Albumin Globulin Albumin/Globulin Ratio Blood Type O POSITIVE Antibody Screen Negative Crossmatch See Detail 03/09/16 03/09/16 03/09/16 10:55 12:02 12:02 WBC 13.5 D RBC 3.83 Hgb 11.7 L D Hct 34.2 L MCV 89.3 MCH 31 MCHC 34.2 RDW 12.3 Plt Count 135 D MPV 9.7 Neut % (Auto) 85.6 H Lymph % (Auto) 8.1 L [place] % (Auto) 4.8 Eos % (Auto) 0.6 Baso % (Auto) 0.2 Neut # (Auto) 11.6 H Lymph # (Auto) 1.1 L [place] # (Auto) 0.7 Eos # (Auto) 0.1 Baso # (Auto) 0.0 Total Counted Immature Gran % 0.7 Nucleated RBC % 0.0 Immature Gran # 0.10 Segmented Neutrophils Lymphocytes Nucleated RBCs # 0.00 Platelet Estimate Hypochromasia INR 1.2 PT Patient/Control Mix 12.7 Circ Anticoag PTT 32.7 D Patient Temperature 37 ABG pH 7.426 ABG pH at Pt Temp 7.426 ABG pCO2 40.6 ABG pCO2 at Pt Temp 40.6 ABG pO2 127.1 H ABG pO2 at Pt Temp 127.1 ABG HCO3 26.1 H ABG Total CO2 27.3 H ABG O2 Saturation 98.2 ABG Base Excess 1.6 ABG Sodium 135 VBG pH VBG pCO2 VBG pO2 VBG HCO3 VBG Total CO2 VBG O2 Saturation VBG Base Excess Hemoglobin 12.7 L Hematocrit 37.0 L Potassium 3.5 Glucose 155 H Ionized Calcium 1.28 FiO2 Sodium Chloride Carbon Dioxide Anion Gap BUN Creatinine GFR Calculation BUN/Creatinine Ratio POC Glucose Calculated Osmolality Calcium Venous Ioniz Calcium Magnesium Total Bilirubin Direct Bilirubin AST ALT Alkaline Phosphatase Total Creatine Kinase CK-MB (CK-2) CK and CKMB Interp Troponin I Total Protein Albumin Globulin Albumin/Globulin Ratio Blood Type Antibody Screen Crossmatch 03/09/16 03/09/16 03/09/16 12:02 12:02 12:02 WBC RBC Hgb Hct MCV MCH MCHC RDW Plt Count MPV Neut % (Auto) Lymph % (Auto) [place] % (Auto) Eos % (Auto) Baso % (Auto) Neut # (Auto) Lymph # (Auto) [place] # (Auto) Eos # (Auto) Baso # (Auto) Total Counted Immature Gran % Nucleated RBC % Immature Gran # Segmented Neutrophils Lymphocytes Nucleated RBCs # Platelet Estimate Hypochromasia INR PT Patient/Control Mix Circ Anticoag PTT Patient Temperature ABG pH 7.417 ABG pH at Pt Temp ABG pCO2 37.5 ABG pCO2 at Pt Temp ABG pO2 105.6 H ABG pO2 at Pt Temp ABG HCO3 23.6 ABG Total CO2 24.8 ABG O2 Saturation 97.8 ABG Base Excess -0.6 ABG Sodium VBG pH VBG pCO2 VBG pO2 VBG HCO3 VBG Total CO2 VBG O2 Saturation VBG Base Excess Hemoglobin 12.3 L Hematocrit 36.0 L Potassium 3.6 3.2 L Glucose 148 H 146 H Ionized Calcium FiO2 Sodium 148 H Chloride 113 H Carbon Dioxide 25 Anion Gap 13.6 BUN 11 Creatinine 0.90 GFR Calculation 127 BUN/Creatinine Ratio 12.00 POC Glucose Calculated Osmolality 295.3 Calcium 7.7 L Venous Ioniz Calcium Magnesium 2.1 Total Bilirubin 1.60 H Direct Bilirubin AST 30 ALT 28 Alkaline Phosphatase 47 Total Creatine Kinase 170 CK-MB (CK-2) 26.5 H CK and CKMB Interp 15.6 Troponin I 4.350 H Total Protein 4.8 L Albumin 3.0 L Globulin 1.8 L Albumin/Globulin Ratio 1.6 Blood Type Antibody Screen Crossmatch 03/09/16 03/09/16 03/09/16 13:47 15:02 15:22 WBC RBC Hgb Hct MCV MCH MCHC RDW Plt Count MPV Neut % (Auto) Lymph % (Auto) [place] % (Auto) Eos % (Auto) Baso % (Auto) Neut # (Auto) Lymph # (Auto) [place] # (Auto) Eos # (Auto) Baso # (Auto) Total Counted Immature Gran % Nucleated RBC % Immature Gran # Segmented Neutrophils Lymphocytes Nucleated RBCs # Platelet Estimate Hypochromasia INR PT Patient/Control Mix Circ Anticoag PTT Patient Temperature ABG pH 7.401 7.375 ABG pH at Pt Temp ABG pCO2 39.4 43.8 ABG pCO2 at Pt Temp ABG pO2 174.0 H 101.0 H ABG pO2 at Pt Temp ABG HCO3 24.3 24.6 ABG Total CO2 21.9 L 22.9 L ABG O2 Saturation 100.0 98.0 ABG Base Excess -0.2 0.2 ABG Sodium VBG pH VBG pCO2 VBG pO2 VBG HCO3 VBG Total CO2 VBG O2 Saturation VBG Base Excess Hemoglobin 11.1 L 11.4 L Hematocrit 34.3 L 35.1 L Potassium 3.3 L 4.0 Glucose 165 H 158 H Ionized Calcium FiO2 Sodium Chloride Carbon Dioxide Anion Gap BUN Creatinine GFR Calculation BUN/Creatinine Ratio POC Glucose 140 H Calculated Osmolality Calcium Venous Ioniz Calcium Magnesium Total Bilirubin Direct Bilirubin AST ALT Alkaline Phosphatase Total Creatine Kinase CK-MB (CK-2) CK and CKMB Interp Troponin I Total Protein Albumin Globulin Albumin/Globulin Ratio Blood Type Antibody Screen Crossmatch 12/28/16 12/28/16 12/28/16 17:00 18:13 18:16 WBC RBC Hgb Hct MCV MCH MCHC RDW Plt Count MPV Neut % (Auto) Lymph % (Auto) [place] % (Auto) Eos % (Auto) Baso % (Auto) Neut # (Auto) Lymph # (Auto) [place] # (Auto) Eos # (Auto) Baso # (Auto) Total Counted Immature Gran % Nucleated RBC % Immature Gran # Segmented Neutrophils Lymphocytes Nucleated RBCs # Platelet Estimate Hypochromasia INR PT Patient/Control Mix Circ Anticoag PTT Patient Temperature ABG pH 7.325 L ABG pH at Pt Temp ABG pCO2 51.6 H ABG pCO2 at Pt Temp ABG pO2 104.4 H ABG pO2 at Pt Temp ABG HCO3 26.3 H ABG Total CO2 27.9 H ABG O2 Saturation 97.2 ABG Base Excess -0.3 ABG Sodium VBG pH VBG pCO2 VBG pO2 VBG HCO3 VBG Total CO2 VBG O2 Saturation VBG Base Excess Hemoglobin 12.0 L Hematocrit 35.0 L Potassium 4.3 Glucose 152 H Ionized Calcium FiO2 Sodium Chloride Carbon Dioxide Anion Gap BUN Creatinine GFR Calculation BUN/Creatinine Ratio POC Glucose 93 163 H Calculated Osmolality Calcium Venous Ioniz Calcium Magnesium Total Bilirubin Direct Bilirubin AST ALT Alkaline Phosphatase Total Creatine Kinase CK-MB (CK-2) CK and CKMB Interp Troponin I Total Protein Albumin Globulin Albumin/Globulin Ratio Blood Type Antibody Screen Crossmatch 03/09/16 03/09/16 03/09/16 19:35 19:56 20:00 WBC RBC Hgb Hct MCV MCH MCHC RDW Plt Count MPV Neut % (Auto) Lymph % (Auto) [place] % (Auto) Eos % (Auto) Baso % (Auto) Neut # (Auto) Lymph # (Auto) [place] # (Auto) Eos # (Auto) Baso # (Auto) Total Counted Immature Gran % Nucleated RBC % Immature Gran # Segmented Neutrophils Lymphocytes Nucleated RBCs # Platelet Estimate Hypochromasia INR PT Patient/Control Mix Circ Anticoag PTT Patient Temperature ABG pH 7.333 L ABG pH at Pt Temp ABG pCO2 48.0 ABG pCO2 at Pt Temp ABG pO2 108.0 H ABG pO2 at Pt Temp ABG HCO3 23.8 ABG Total CO2 23.1 ABG O2 Saturation 98.4 ABG Base Excess -0.8 ABG Sodium VBG pH VBG pCO2 VBG pO2 VBG HCO3 VBG Total CO2 VBG O2 Saturation VBG Base Excess Hemoglobin 10.7 L Hematocrit 33.1 L Potassium 4.5 Glucose 160 H Ionized Calcium FiO2 Sodium Chloride Carbon Dioxide Anion Gap BUN Creatinine GFR Calculation BUN/Creatinine Ratio POC Glucose 159 H Calculated Osmolality Calcium Venous Ioniz Calcium Magnesium Total Bilirubin Direct Bilirubin AST ALT Alkaline Phosphatase Total Creatine Kinase 341 H D CK-MB (CK-2) 61.5 H D CK and CKMB Interp 18.0 Troponin I 5.880 H D Total Protein Albumin Globulin Albumin/Globulin Ratio Blood Type Antibody Screen Crossmatch 03/09/16 03/09/16 03/09/16 21:37 22:25 22:48 WBC RBC Hgb Hct MCV MCH MCHC RDW Plt Count MPV Neut % (Auto) Lymph % (Auto) [place] % (Auto) Eos % (Auto) Baso % (Auto) Neut # (Auto) Lymph # (Auto) [place] # (Auto) Eos # (Auto) Baso # (Auto) Total Counted Immature Gran % Nucleated RBC % Immature Gran # Segmented Neutrophils Lymphocytes Nucleated RBCs # Platelet Estimate Hypochromasia INR PT Patient/Control Mix Circ Anticoag PTT Patient Temperature ABG pH 7.443 ABG pH at Pt Temp ABG pCO2 35.9 ABG pCO2 at Pt Temp ABG pO2 94.1 ABG pO2 at Pt Temp ABG HCO3 25.1 ABG Total CO2 22.3 L ABG O2 Saturation 98.0 ABG Base Excess 0.8 ABG Sodium VBG pH VBG pCO2 VBG pO2 VBG HCO3 VBG Total CO2 VBG O2 Saturation VBG Base Excess Hemoglobin 10.1 L Hematocrit 31.1 L Potassium 3.7 Glucose 142 H Ionized Calcium FiO2 Sodium Chloride Carbon Dioxide Anion Gap BUN Creatinine GFR Calculation BUN/Creatinine Ratio POC Glucose 164 H 159 H Calculated Osmolality Calcium Venous Ioniz Calcium Magnesium Total Bilirubin Direct Bilirubin AST ALT Alkaline Phosphatase Total Creatine Kinase CK-MB (CK-2) CK and CKMB Interp Troponin I Total Protein Albumin Globulin Albumin/Globulin Ratio Blood Type Antibody Screen Crossmatch 03/09/16 03/09/16 03/10/16 23:14 23:48 00:33 WBC RBC Hgb Hct MCV MCH MCHC RDW Plt Count MPV Neut % (Auto) Lymph % (Auto) [place] % (Auto) Eos % (Auto) Baso % (Auto) Neut # (Auto) Lymph # (Auto) [place] # (Auto) Eos # (Auto) Baso # (Auto) Total Counted Immature Gran % Nucleated RBC % Immature Gran # Segmented Neutrophils Lymphocytes Nucleated RBCs # Platelet Estimate Hypochromasia INR PT Patient/Control Mix Circ Anticoag PTT Patient Temperature ABG pH 7.357 ABG pH at Pt Temp ABG pCO2 46.7 ABG pCO2 at Pt Temp ABG pO2 87.5 ABG pO2 at Pt Temp ABG HCO3 24.7 ABG Total CO2 23.9 ABG O2 Saturation 97.3 ABG Base Excess 0.3 ABG Sodium VBG pH VBG pCO2 VBG pO2 VBG HCO3 VBG Total CO2 VBG O2 Saturation VBG Base Excess Hemoglobin 9.9 L Hematocrit 30.7 L Potassium 3.9 Glucose 130 H Ionized Calcium FiO2 Sodium Chloride Carbon Dioxide Anion Gap BUN Creatinine GFR Calculation BUN/Creatinine Ratio POC Glucose 144 H 128 H Calculated Osmolality Calcium Venous Ioniz Calcium Magnesium Total Bilirubin Direct Bilirubin AST ALT Alkaline Phosphatase Total Creatine Kinase CK-MB (CK-2) CK and CKMB Interp Troponin I Total Protein Albumin Globulin Albumin/Globulin Ratio Blood Type Antibody Screen Crossmatch 03/10/16 03/10/16 03/10/16 01:05 01:25 02:15 WBC RBC Hgb Hct MCV MCH MCHC RDW Plt Count MPV Neut % (Auto) Lymph % (Auto) [place] % (Auto) Eos % (Auto) Baso % (Auto) Neut # (Auto) Lymph # (Auto) [place] # (Auto) Eos # (Auto) Baso # (Auto) Total Counted Immature Gran % Nucleated RBC % Immature Gran # Segmented Neutrophils Lymphocytes Nucleated RBCs # Platelet Estimate Hypochromasia INR PT Patient/Control Mix Circ Anticoag PTT Patient Temperature ABG pH 7.411 ABG pH at Pt Temp ABG pCO2 42.5 ABG pCO2 at Pt Temp ABG pO2 84.3 ABG pO2 at Pt Temp ABG HCO3 26.4 H ABG Total CO2 27.7 H ABG O2 Saturation 96.1 ABG Base Excess 1.6 ABG Sodium VBG pH VBG pCO2 VBG pO2 VBG HCO3 VBG Total CO2 VBG O2 Saturation VBG Base Excess Hemoglobin 10.7 L Hematocrit 31.0 L Potassium 3.9 Glucose 109 H Ionized Calcium FiO2 Sodium Chloride Carbon Dioxide Anion Gap BUN Creatinine GFR Calculation BUN/Creatinine Ratio POC Glucose 120 H 105 Calculated Osmolality Calcium Venous Ioniz Calcium Magnesium Total Bilirubin Direct Bilirubin AST ALT Alkaline Phosphatase Total Creatine Kinase CK-MB (CK-2) CK and CKMB Interp Troponin I Total Protein Albumin Globulin Albumin/Globulin Ratio Blood Type Antibody Screen Crossmatch 03/10/16 03/10/16 03/10/16 02:35 02:35 03:15 WBC RBC Hgb Hct MCV MCH MCHC RDW Plt Count MPV Neut % (Auto) Lymph % (Auto) [place] % (Auto) Eos % (Auto) Baso % (Auto) Neut # (Auto) Lymph # (Auto) [place] # (Auto) Eos # (Auto) Baso # (Auto) Total Counted Immature Gran % Nucleated RBC % Immature Gran # Segmented Neutrophils Lymphocytes Nucleated RBCs # Platelet Estimate Hypochromasia INR PT Patient/Control Mix Circ Anticoag PTT Patient Temperature ABG pH 7.390 ABG pH at Pt Temp ABG pCO2 44.0 ABG pCO2 at Pt Temp ABG pO2 75.6 L ABG pO2 at Pt Temp ABG HCO3 25.6 ABG Total CO2 24.3 ABG O2 Saturation 95.8 ABG Base Excess 1.4 ABG Sodium VBG pH VBG pCO2 VBG pO2 VBG HCO3 VBG Total CO2 VBG O2 Saturation VBG Base Excess Hemoglobin 10.0 L Hematocrit 31.0 L Potassium 3.9 3.7 Glucose 92 101 Ionized Calcium FiO2 Sodium 149 H Chloride 113 H Carbon Dioxide 27 Anion Gap 12.9 BUN 15 Creatinine 1.00 GFR Calculation 112 BUN/Creatinine Ratio 15.00 POC Glucose 101 Calculated Osmolality 296.1 Calcium 8.2 L Venous Ioniz Calcium Magnesium 2.0 Total Bilirubin 1.40 H Direct Bilirubin 0.3 H AST 93 H ALT 32 Alkaline Phosphatase 41 L Total Creatine Kinase 574 H D CK-MB (CK-2) 100.9 H D CK and CKMB Interp 17.6 Troponin I 10.500 H D Total Protein 5.7 L Albumin 3.9 Globulin 1.8 L Albumin/Globulin Ratio 2.1 Blood Type Antibody Screen Crossmatch 03/10/16 03/10/16 03/10/16 03:25 05:21 05:50 WBC 15.3 H RBC 3.02 L D Hgb 9.2 L D Hct 27.1 L MCV 89.7 MCH 31 MCHC 33.9 RDW 12.6 Plt Count 102 L D MPV 10.2 Neut % (Auto) 90.7 H Lymph % (Auto) 4.4 L [place] % (Auto) 4.3 Eos % (Auto) 0.0 Baso % (Auto) 0.1 Neut # (Auto) 13.8 H Lymph # (Auto) 0.7 L [place] # (Auto) 0.7 Eos # (Auto) 0.0 Baso # (Auto) 0.0 Total Counted 100 Immature Gran % 0.5 Nucleated RBC % 0.0 Immature Gran # 0.08 Segmented Neutrophils 96 H Lymphocytes 4 L Nucleated RBCs # 0.00 Platelet Estimate Decreased Hypochromasia Slight INR PT Patient/Control Mix Circ Anticoag PTT Patient Temperature ABG pH ABG pH at Pt Temp ABG pCO2 ABG pCO2 at Pt Temp ABG pO2 ABG pO2 at Pt Temp ABG HCO3 ABG Total CO2 ABG O2 Saturation ABG Base Excess ABG Sodium VBG pH VBG pCO2 VBG pO2 VBG HCO3 VBG Total CO2 VBG O2 Saturation VBG Base Excess Hemoglobin Hematocrit Potassium 4.2 Glucose Ionized Calcium FiO2 Sodium Chloride Carbon Dioxide Anion Gap BUN Creatinine GFR Calculation BUN/Creatinine Ratio POC Glucose 93 Calculated Osmolality Calcium Venous Ioniz Calcium Magnesium Total Bilirubin Direct Bilirubin AST ALT Alkaline Phosphatase Total Creatine Kinase CK-MB (CK-2) CK and CKMB Interp Troponin I Total Protein Albumin Globulin Albumin/Globulin Ratio Blood Type Antibody Screen Crossmatch Quality Measures - VTE Contraindication to Pharmacological VTE Prophylaxis: High Risk of Bleeding Specialty Discharge - Follow Up or Referrals - Discharge Medications No Action Metoprolol Succinate Xl [Toprol Xl] 25 mg PO BEDTIME Aspirin [Ecotrin] 81 mg PO BEDTIME Rosuvastatin Calcium [Crestor] 10 mg PO BEDTIME Fosinopril Sodium 10 mg PO BEDTIME B Complex with Vitamin C [Vitamin B-Complex with Vit C] 1 each PO BEDTIME Co Q 10 50 mg PO BEDTIME
[2016-03-10] MEDS: oxyCODONE/ACETAMINOPHEN 5-325 MG TABLET PO PRN ×2 (13:27→20:41)
--- NOTE | 2016-03-10 16:55 | XRay Report ---
Referring Physician: Lowell Lopez Exam: XR chest 1V portable Date: March 10, 2016 at 10:03 AM Reason: Followup chest tube removal Comparison: Chest one view portable March 10, 2016 at 6:18 AM Findings: A right IJ catheter is present with its distal tip at the right atrium. The previously seen [place] catheter is no longer identified. The cardiac silhouette is again enlarged, and the patient is status post sternotomy. There are mild bibasilar opacities which are most consistent with atelectasis. There is also minimal left pleural fluid. There is a small pneumothorax at the right lung apex, and followup is recommended. The osseous structures appear stable. Impression: 1. Small pneumothorax at the right lung apex. A followup chest x-ray is recommended. Findings were discussed with the patient's nurse, Monet, on March 10, 2015 at 4:51 PM. 2. Minimal bibasilar atelectasis and minimal left pleural fluid, similar to before. The previously seen [place] catheter has been removed. PROCEDURE INTERPRETED AT [facility] DEPARTMENT OF RADIOLOGY Final Report Signed by: Dr. Patsy Ortiz
[2016-03-10] MEDS: INSULIN REGULAR 100 UNIT/ML SUBCUT SCH ×2 (17:03→18:08)
[2016-03-10] MEDS ORDERED: INSULIN REGULAR 100 UNIT/ML SUBCUT SCH (18:00)
[2016-03-10] MEDS: METOPROLOL SUCCINATE XL 25 MG TABLET PO SCH (20:39)
[2016-03-10] MEDS: MULTIVITAMIN (BEROCCA) TABLET PO SCH (20:40)
[2016-03-10] MEDS: ROSUVASTATIN 10 MG TABLET PO SCH (20:40)
[2016-03-10] MEDS: FOSINOPRIL 10 MG TABLET PO SCH (20:40)
[2016-03-10] MEDS: COENZYME Q10 100 MG CAPSULE PO SCH (20:41)
[2016-03-11] MEDS: KETOROLAC 30 MG/1 ML VIAL IV SCH ×4 (01:29→18:48)
[2016-03-11] MEDS: INSULIN REGULAR 100 UNIT/ML SUBCUT SCH ×4 (02:14→18:35)
[2016-03-11] MEDS: oxyCODONE/ACETAMINOPHEN 5-325 MG TABLET PO PRN (04:37)
[2016-03-11 05:15] LABS: Basophils % 0.1 % (0.0-0.8); Hematocrit 26.4 VOL% (42.0-52.0); Hemoglobin 8.8 GM/DL (14.0-18.0); Immature Granulocytes % 1.6 %; Immature Granulocytes Absolute 0.41 #; Lymphocytes # 0.8 10*3/uL (1.4-4.0); Lymphocytes % 3.2 % (21.2-54.2); Mean Corpuscular HGB Conc 33.3 GM/DL (32-36); Mean Corpuscular Hemoglobin 31 PG (27-34); Mean Corpuscular Volume 91.7 FL (87-102); Mean Platelet Volume 10.7 FL (9.6-12.0); Monocytes # 1.5 10*3/uL (0.11-0.8); Monocytes % 5.7 % (1.7-12.7); Neutrophils # 23.1 10*3/uL (1.4-7.4); Neutrophils % 89.4 % (38.7-73.9); Platelet Count 128 10*3/uL (130-400); Red Blood Count 2.88 10*6/uL (3.8-5.5); Red Cell Distribution Width 12.8 % (9.3-17.3); White Blood Count 25.9 10*3/uL (4.5-13.71)
[2016-03-11 05:52] LABS: Band Neutrophils 1 % (0-10); Hypochromasia Slight; Lymphocytes 2 % (20-55); Macrocytosis Slight; Platelet Estimate Adequate; Segmented Neutrophils 94 % (50-85); Total Cells Counted 100
[2016-03-11 05:57] LABS: Albumin 3.1 G/DL (3.4-5.0); Bilirubin,Direct 0.2 MG/DL (0.0-0.20); Bilirubin,Indirect 0.7 MG/DL (0.0-1.0); Bilirubin,Total 0.9 MG/DL (0.2-1.0); CKMB % 12.2 %; Calcium 8.1 MG/DL (8.5-10.1); Magnesium 2.2 MG/DL (1.8-2.4); Osmolality,Calculated 291.7 MOS/KG (273-304); Potassium 4.6 MMOL/L (3.5-5.1); Total Protein 5.1 G/DL (6.4-8.3)
[2016-03-11] MEDS ORDERED: FUROSEMIDE 40 MG/4 ML VIAL IV ONE (06:00)
[2016-03-11 06:23] LABS: Troponin I Only 13.1 NG/ML (0.00-0.045)
--- NOTE | 2016-03-11 06:31 | Cardiothoracic Progress Note ---
Cardiothoracic Subjective Interval history: Patient looks and feels fine. He had a comfortable night. Vital signs are stable and he is breathing comfortably. Our plan is to increase his activities today according to routine postoperative protocol. Exam (Progress Note) - Constitutional Vitals: Period Temp Pulse Resp BP Sys/Grimes Pulse Ox Last 24 Hr 97.5 F-99.3 F 73-95 16-20 96-162/44-62 91-98 Result/EKG - Labs CBC & BMP: 03/11/16 05:00 03/11/16 05:00 Labs: Laboratory Results - last 24 hr 03/08/16 03/09/16 03/09/16 09:22 15:02 18:13 WBC RBC Hgb Hct MCV MCH MCHC RDW Plt Count MPV Neut % (Auto) Lymph % (Auto) [place] % (Auto) Eos % (Auto) Baso % (Auto) Neut # (Auto) Lymph # (Auto) [place] # (Auto) Eos # (Auto) Baso # (Auto) Total Counted Immature Gran % Nucleated RBC % Immature Gran # Segmented Neutrophils Band Neutrophils Lymphocytes Monocytes Nucleated RBCs # Platelet Estimate Hypochromasia Macrocytosis Sodium Potassium Chloride Carbon Dioxide Anion Gap BUN Creatinine GFR Calculation BUN/Creatinine Ratio Glucose POC Glucose 140 H 93 Calculated Osmolality Calcium Magnesium Total Bilirubin Direct Bilirubin Indirect Bilirubin AST ALT Alkaline Phosphatase Total Creatine Kinase CK-MB (CK-2) CK and CKMB Interp Troponin I Total Protein Albumin Globulin Albumin/Globulin Ratio Blood Type O POSITIVE Antibody Screen Negative Crossmatch See Detail 03/09/16 03/09/16 03/09/16 18:16 19:56 21:37 WBC RBC Hgb Hct MCV MCH MCHC RDW Plt Count MPV Neut % (Auto) Lymph % (Auto) [place] % (Auto) Eos % (Auto) Baso % (Auto) Neut # (Auto) Lymph # (Auto) [place] # (Auto) Eos # (Auto) Baso # (Auto) Total Counted Immature Gran % Nucleated RBC % Immature Gran # Segmented Neutrophils Band Neutrophils Lymphocytes Monocytes Nucleated RBCs # Platelet Estimate Hypochromasia Macrocytosis Sodium Potassium Chloride Carbon Dioxide Anion Gap BUN Creatinine GFR Calculation BUN/Creatinine Ratio Glucose POC Glucose 163 H 159 H 164 H Calculated Osmolality Calcium Magnesium Total Bilirubin Direct Bilirubin Indirect Bilirubin AST ALT Alkaline Phosphatase Total Creatine Kinase CK-MB (CK-2) CK and CKMB Interp Troponin I Total Protein Albumin Globulin Albumin/Globulin Ratio Blood Type Antibody Screen Crossmatch 03/09/16 03/09/16 03/10/16 22:25 23:14 00:33 WBC RBC Hgb Hct MCV MCH MCHC RDW Plt Count MPV Neut % (Auto) Lymph % (Auto) [place] % (Auto) Eos % (Auto) Baso % (Auto) Neut # (Auto) Lymph # (Auto) [place] # (Auto) Eos # (Auto) Baso # (Auto) Total Counted Immature Gran % Nucleated RBC % Immature Gran # Segmented Neutrophils Band Neutrophils Lymphocytes Monocytes Nucleated RBCs # Platelet Estimate Hypochromasia Macrocytosis Sodium Potassium Chloride Carbon Dioxide Anion Gap BUN Creatinine GFR Calculation BUN/Creatinine Ratio Glucose POC Glucose 159 H 144 H 128 H Calculated Osmolality Calcium Magnesium Total Bilirubin Direct Bilirubin Indirect Bilirubin AST ALT Alkaline Phosphatase Total Creatine Kinase CK-MB (CK-2) CK and CKMB Interp Troponin I Total Protein Albumin Globulin Albumin/Globulin Ratio Blood Type Antibody Screen Crossmatch 03/10/16 03/10/16 03/10/16 01:25 02:15 03:15 WBC RBC Hgb Hct MCV MCH MCHC RDW Plt Count MPV Neut % (Auto) Lymph % (Auto) [place] % (Auto) Eos % (Auto) Baso % (Auto) Neut # (Auto) Lymph # (Auto) [place] # (Auto) Eos # (Auto) Baso # (Auto) Total Counted Immature Gran % Nucleated RBC % Immature Gran # Segmented Neutrophils Band Neutrophils Lymphocytes Monocytes Nucleated RBCs # Platelet Estimate Hypochromasia Macrocytosis Sodium Potassium Chloride Carbon Dioxide Anion Gap BUN Creatinine GFR Calculation BUN/Creatinine Ratio Glucose POC Glucose 120 H 105 101 Calculated Osmolality Calcium Magnesium Total Bilirubin Direct Bilirubin Indirect Bilirubin AST ALT Alkaline Phosphatase Total Creatine Kinase CK-MB (CK-2) CK and CKMB Interp Troponin I Total Protein Albumin Globulin Albumin/Globulin Ratio Blood Type Antibody Screen Crossmatch 03/10/16 03/10/16 03/10/16 05:21 08:28 11:25 WBC RBC Hgb Hct MCV MCH MCHC RDW Plt Count MPV Neut % (Auto) Lymph % (Auto) [place] % (Auto) Eos % (Auto) Baso % (Auto) Neut # (Auto) Lymph # (Auto) [place] # (Auto) Eos # (Auto) Baso # (Auto) Total Counted Immature Gran % Nucleated RBC % Immature Gran # Segmented Neutrophils Band Neutrophils Lymphocytes Monocytes Nucleated RBCs # Platelet Estimate Hypochromasia Macrocytosis Sodium Potassium Chloride Carbon Dioxide Anion Gap BUN Creatinine GFR Calculation BUN/Creatinine Ratio Glucose POC Glucose 93 155 H 177 H Calculated Osmolality Calcium Magnesium Total Bilirubin Direct Bilirubin Indirect Bilirubin AST ALT Alkaline Phosphatase Total Creatine Kinase CK-MB (CK-2) CK and CKMB Interp Troponin I Total Protein Albumin Globulin Albumin/Globulin Ratio Blood Type Antibody Screen Crossmatch 03/10/16 03/10/16 03/11/16 14:49 19:10 05:00 WBC 25.9 H D RBC 2.88 L Hgb 8.8 L Hct 26.4 L MCV 91.7 MCH 31 MCHC 33.3 RDW 12.8 Plt Count 128 L D MPV 10.7 Neut % (Auto) 89.4 H Lymph % (Auto) 3.2 L [place] % (Auto) 5.7 Eos % (Auto) 0.0 Baso % (Auto) 0.1 Neut # (Auto) 23.1 H Lymph # (Auto) 0.8 L [place] # (Auto) 1.5 H Eos # (Auto) 0.0 Baso # (Auto) 0.0 Total Counted 100 Immature Gran % 1.6 Nucleated RBC % 0.0 Immature Gran # 0.41 Segmented Neutrophils 94 H Band Neutrophils 1 Lymphocytes 2 L Monocytes 3 Nucleated RBCs # 0.00 Platelet Estimate Adequate Hypochromasia Slight Macrocytosis Slight Sodium Potassium Chloride Carbon Dioxide Anion Gap BUN Creatinine GFR Calculation BUN/Creatinine Ratio Glucose POC Glucose 201 H 219 H Calculated Osmolality Calcium Magnesium Total Bilirubin Direct Bilirubin Indirect Bilirubin AST ALT Alkaline Phosphatase Total Creatine Kinase CK-MB (CK-2) CK and CKMB Interp Troponin I Total Protein Albumin Globulin Albumin/Globulin Ratio Blood Type Antibody Screen Crossmatch 03/11/16 05:00 WBC RBC Hgb Hct MCV MCH MCHC RDW Plt Count MPV Neut % (Auto) Lymph % (Auto) [place] % (Auto) Eos % (Auto) Baso % (Auto) Neut # (Auto) Lymph # (Auto) [place] # (Auto) Eos # (Auto) Baso # (Auto) Total Counted Immature Gran % Nucleated RBC % Immature Gran # Segmented Neutrophils Band Neutrophils Lymphocytes Monocytes Nucleated RBCs # Platelet Estimate Hypochromasia Macrocytosis Sodium 145 Potassium 4.6 Chloride 109 H Carbon Dioxide 28 Anion Gap 12.6 BUN 17 Creatinine 0.90 GFR Calculation 124 BUN/Creatinine Ratio 18.00 Glucose 140 H POC Glucose Calculated Osmolality 291.7 Calcium 8.1 L Magnesium 2.2 Total Bilirubin 0.90 Direct Bilirubin 0.2 Indirect Bilirubin 0.7 AST 88 H ALT 33 Alkaline Phosphatase 42 L Total Creatine Kinase 297 D CK-MB (CK-2) 36.3 H D CK and CKMB Interp 12.2 Troponin I 13.100 H D Total Protein 5.1 L Albumin 3.1 L Globulin 2.0 L Albumin/Globulin Ratio 1.5 Blood Type Antibody Screen Crossmatch Quality Measures - VTE Contraindication to Pharmacological VTE Prophylaxis: High Risk of Bleeding Specialty Discharge - Follow Up or Referrals - Discharge Medications No Action Metoprolol Succinate Xl [Toprol Xl] 25 mg PO BEDTIME Aspirin [Ecotrin] 81 mg PO BEDTIME Rosuvastatin Calcium [Crestor] 10 mg PO BEDTIME Fosinopril Sodium 10 mg PO BEDTIME B Complex with Vitamin C [Vitamin B-Complex with Vit C] 1 each PO BEDTIME Co Q 10 50 mg PO BEDTIME
--- NOTE | 2016-03-11 08:19 | XRay Report ---
Referring Physician: Lowell Lopez Exam: XR chest 1V portable Date: March 11, 2016 at 5:58 AM Reason: Shortness of breath Comparison: Chest one view portable March 10, 2016 at 10:03 AM Findings: A right IJ catheter is again in place. The cardiac silhouette is again enlarged, and the patient is status post sternotomy. There are mild scattered opacities within both lower lung zones. This is most consistent with atelectasis. On the previous study, there was a small pneumothorax at the right lung apex, but no significant pneumothorax is seen today. No definite pleural fluid is identified. The osseous structures appear stable. Impression: 1. The previously seen small pneumothorax at the right lung apex is no longer identified. 2. There is again mild scattered atelectasis within both lower lung zones. No definite pleural fluid is identified today. PROCEDURE INTERPRETED AT [facility] DEPARTMENT OF RADIOLOGY Final Report Signed by: Dr. Patsy Ortiz
[2016-03-11] MEDS: FERROUS SULFATE 325 MG TABLET PO SCH (10:17)
[2016-03-11] MEDS: DOCUSATE SODIUM 100 MG CAPSULE PO SCH (10:17)
[2016-03-11] MEDS: ASPIRIN EC 325 MG TABLET PO SCH (10:17)
[2016-03-11] MEDS: PANTOPRAZOLE 40 MG TABLET PO SCH (10:17)
[2016-03-11] MEDS: AMIODARONE 200 MG TABLET PO SCH ×2 (10:17→21:29)
[2016-03-11] MEDS: SODIUM CHLOR 0.45% KCL 20 MEQ 20 MEQ/1,000 ML BAG IV SCH (10:18)
--- NOTE | 2016-03-11 18:52 | Cardiology Progress Note ---
I, Regina Quiñones RN, am scribing for, and in the presence of, Chapo Centeno MD 18:52. Assessment and Plan (1) Left main coronary artery disease Status: Acute Assessment and plan: Initial assessment 03/09/16 1. 55-year-old WF with controlled hypertension, treated dyslipidemia, status post non-STEMI postoperatively in 2002 after orthopedic surgery with LAD stenting and diagonal angioplasty at that time with good result. He now has several months of worsening exertional angina, and three-vessel disease noted at catheterization or this month including greater than 50% distal left main disease involving the ostium of the LAD. He is now immediately status post 4 vessel CABG hemodynamic stable 2. Cardiac index is modestly diminished as expected postoperatively a 2.2 L/m/m 3. Sinus mechanism rated the 90s 4. On modest doses of Hari-Synephrine 5. Hemoglobin stable 6. Normal LV function by left ventriculogram revealed this month March 10 update: 1. Postoperative day 1 status post 4 vessel CABG doing very well clinically on the floor without shortness of breath or significant complaint 2. Hematocrit is dropped from 42% a 27+ percent; follow-up in the morning 3. Maintaining normal sinus rhythm 4. Postop troponin of 10 is noted 5. Normal LV function noted preoperatively 6. I recommended cardiovascular rehabilitation, which he plans to go to March 11 uptake: 1. POD #2 after 4 vessel CABG doing well overall with 1 mild episode of orthostasis which may have a vasovagal component ("I looked at my incision and and it bothered me") 2. Moderate anemia with only trivial dropped today {27% to 26%) 3. Continued to have modest hyperglycemia (borderline diabetes?) 4. Continue to maintain normal sinus rhythm 5. Troponin peaked at 13 noted Current Visit: Yes Cardiology - PN: Subj Interval history: Resting in bed in no acute distress. He is day 2 post 4 vessel CABG. Reports he is very fatigued right now as he had a shower earlier. Stated he was weaker than he had expected to be and at one point while in chair in shower he thought he would pass out. He was helped back to bed, and began feeling better. No complaints now except of being weak and soreness at incision sites. Upper part of sternal wound and donor site on right leg are open to air and appear to be healing well. The lower part of his sternal wound and donor site on left leg are dressed and dressing is dry and intact. He has not had a BM since surgery, but he has been passing flatus. Reports he has been using his incentive spirometry and encouraged him to continue this. His H&H today is 8.8 and 26.4, troponin today is 13. Currently he is in sinus rhythm with heart rates in the 80's. Exam (Progress Note) - Constitutional Vitals: Period Temp Pulse Resp BP Sys/Grimes Pulse Ox Last 24 Hr 98 F-99.3 F 77-95 16-20 96-118/53-59 90-98 General appearance: normal weight, no acute distress - Head Head exam: Present: normal inspection - Respiratory Respiratory exam: Present: rales, other (sternal wound). Absent: accessory muscle use - Cardiovascular Cardiovascular exam: Present: regular rate and rhythm. Absent: diastolic murmur , rubs - GI/Abdominal GI/Abdominal exam: Present: normal bowel sounds, soft. Absent: distended, tenderness - Extremities Exam Extremities exam: Absent: edema - Neurological Exam Neurological exam: Present: alert, oriented X3 - Psychiatric Psychiatric exam: Present: normal mood - Skin Skin exam: Present: warm, dry Result/EKG - Labs CBC & BMP: 03/11/16 05:00 03/11/16 05:00 Lab Results: I have reviewed the past 24 hour labs Labs: Laboratory Results - last 24 hr 03/10/16 03/10/16 03/10/16 08:28 11:25 14:49 WBC RBC Hgb Hct MCV MCH MCHC RDW Plt Count MPV Neut % (Auto) Lymph % (Auto) [place] % (Auto) Eos % (Auto) Baso % (Auto) Neut # (Auto) Lymph # (Auto) [place] # (Auto) Eos # (Auto) Baso # (Auto) Total Counted Immature Gran % Nucleated RBC % Immature Gran # Segmented Neutrophils Band Neutrophils Lymphocytes Monocytes Nucleated RBCs # Platelet Estimate Hypochromasia Macrocytosis Sodium Potassium Chloride Carbon Dioxide Anion Gap BUN Creatinine GFR Calculation BUN/Creatinine Ratio Glucose POC Glucose 155 H 177 H 201 H Calculated Osmolality Calcium Magnesium Total Bilirubin Direct Bilirubin Indirect Bilirubin AST ALT Alkaline Phosphatase Total Creatine Kinase CK-MB (CK-2) CK and CKMB Interp Troponin I Total Protein Albumin Globulin Albumin/Globulin Ratio 03/10/16 03/11/16 03/11/16 19:10 05:00 05:00 WBC 25.9 H D RBC 2.88 L Hgb 8.8 L Hct 26.4 L MCV 91.7 MCH 31 MCHC 33.3 RDW 12.8 Plt Count 128 L D MPV 10.7 Neut % (Auto) 89.4 H Lymph % (Auto) 3.2 L [place] % (Auto) 5.7 Eos % (Auto) 0.0 Baso % (Auto) 0.1 Neut # (Auto) 23.1 H Lymph # (Auto) 0.8 L [place] # (Auto) 1.5 H Eos # (Auto) 0.0 Baso # (Auto) 0.0 Total Counted 100 Immature Gran % 1.6 Nucleated RBC % 0.0 Immature Gran # 0.41 Segmented Neutrophils 94 H Band Neutrophils 1 Lymphocytes 2 L Monocytes 3 Nucleated RBCs # 0.00 Platelet Estimate Adequate Hypochromasia Slight Macrocytosis Slight Sodium 145 Potassium 4.6 Chloride 109 H Carbon Dioxide 28 Anion Gap 12.6 BUN 17 Creatinine 0.90 GFR Calculation 124 BUN/Creatinine Ratio 18.00 Glucose 140 H POC Glucose 219 H Calculated Osmolality 291.7 Calcium 8.1 L Magnesium 2.2 Total Bilirubin 0.90 Direct Bilirubin 0.2 Indirect Bilirubin 0.7 AST 88 H ALT 33 Alkaline Phosphatase 42 L Total Creatine Kinase 297 D CK-MB (CK-2) 36.3 H D CK and CKMB Interp 12.2 Troponin I 13.100 H D Total Protein 5.1 L Albumin 3.1 L Globulin 2.0 L Albumin/Globulin Ratio 1.5 03/11/16 03/11/16 06:59 12:12 WBC RBC Hgb Hct MCV MCH MCHC RDW Plt Count MPV Neut % (Auto) Lymph % (Auto) [place] % (Auto) Eos % (Auto) Baso % (Auto) Neut # (Auto) Lymph # (Auto) [place] # (Auto) Eos # (Auto) Baso # (Auto) Total Counted Immature Gran % Nucleated RBC % Immature Gran # Segmented Neutrophils Band Neutrophils Lymphocytes Monocytes Nucleated RBCs # Platelet Estimate Hypochromasia Macrocytosis Sodium Potassium Chloride Carbon Dioxide Anion Gap BUN Creatinine GFR Calculation BUN/Creatinine Ratio Glucose POC Glucose 156 H 133 H Calculated Osmolality Calcium Magnesium Total Bilirubin Direct Bilirubin Indirect Bilirubin AST ALT Alkaline Phosphatase Total Creatine Kinase CK-MB (CK-2) CK and CKMB Interp Troponin I Total Protein Albumin Globulin Albumin/Globulin Ratio - EKG EKG results: interpreted by me EKG shows: sinus rhythm Quality Measures - VTE Contraindication to Pharmacological VTE Prophylaxis: High Risk of Bleeding Specialty Discharge - Follow Up or Referrals - Discharge Medications No Action Metoprolol Succinate Xl [Toprol Xl] 25 mg PO BEDTIME Aspirin [Ecotrin] 81 mg PO BEDTIME Rosuvastatin Calcium [Crestor] 10 mg PO BEDTIME Fosinopril Sodium 10 mg PO BEDTIME B Complex with Vitamin C [Vitamin B-Complex with Vit C] 1 each PO BEDTIME Co Q 10 50 mg PO BEDTIME Tarny Hilliard Randall Scott, MD, personally performed the services described in this documentation, ascribed by Regina Quiñones RN in my presence, and it is both accurate and complete 852 .
[2016-03-11] MEDS: METOPROLOL SUCCINATE XL 25 MG TABLET PO SCH (21:29)
[2016-03-11] MEDS: ROSUVASTATIN 10 MG TABLET PO SCH (21:29)
[2016-03-11] MEDS: FOSINOPRIL 10 MG TABLET PO SCH (21:29)
[2016-03-11] MEDS: COENZYME Q10 100 MG CAPSULE PO SCH (21:29)
[2016-03-11] MEDS: MULTIVITAMIN (BEROCCA) TABLET PO SCH (21:29)
[2016-03-12] MEDS: INSULIN REGULAR 100 UNIT/ML SUBCUT SCH ×7 (00:23→22:13)
[2016-03-12] MEDS: KETOROLAC 30 MG/1 ML VIAL IV SCH ×5 (01:28→23:46)
[2016-03-12 03:51] LABS: Basophils % 0.1 % (0.0-0.8); Hematocrit 24.5 VOL% (42.0-52.0); Hemoglobin 8.3 GM/DL (14.0-18.0); Immature Granulocytes % 0.9 %; Immature Granulocytes Absolute 0.14 #; Lymphocytes # 1.7 10*3/uL (1.4-4.0); Lymphocytes % 10.4 % (21.2-54.2); Mean Corpuscular HGB Conc 33.9 GM/DL (32-36); Mean Corpuscular Hemoglobin 31 PG (27-34); Mean Corpuscular Volume 90.7 FL (87-102); Mean Platelet Volume 10.4 FL (9.6-12.0); Monocytes # 1.6 10*3/uL (0.11-0.8); Monocytes % 9.7 % (1.7-12.7); Neutrophils % 78.9 % (38.7-73.9); Platelet Count 111 10*3/uL (130-400); White Blood Count 16.4 10*3/uL (4.5-13.71)
[2016-03-12 04:30] LABS: Bilirubin,Direct 0.1 MG/DL (0.0-0.20); Bilirubin,Indirect 0.4 MG/DL (0.0-1.0); Bilirubin,Total 0.5 MG/DL (0.2-1.0); CKMB % 5.9 %; Calcium 7.8 MG/DL (8.5-10.1); Magnesium 2.1 MG/DL (1.8-2.4); Osmolality,Calculated 291.7 MOS/KG (273-304); Potassium 4.2 MMOL/L (3.5-5.1); Total Protein 4.8 G/DL (6.4-8.3)
[2016-03-12 04:34] LABS: Troponin I Only 12.9 NG/ML (0.00-0.045)
--- NOTE | 2016-03-12 07:34 | XRay Report ---
XR chest 1V portable Indication: Shortness of breath Comparison: Chest x-ray 03/11/2016 Technique: Portable AP chest was performed. Findings: Airspace opacities in the right cardiophrenic angle have minimally worsened. Differential considerations include worsening atelectasis as well as infection. Chest otherwise demonstrates little change. Impression: 1. No evidence of acute pathology. 03/12/2016 7:30 AM PROCEDURE INTERPRETED AT [facility] DEPARTMENT OF RADIOLOGY Final Report Signed by: Dr. Edgar Garcia
[2016-03-12] MEDS: ASPIRIN EC 325 MG TABLET PO SCH (09:34)
[2016-03-12] MEDS: AMIODARONE 200 MG TABLET PO SCH ×2 (09:34→21:48)
[2016-03-12] MEDS: DOCUSATE SODIUM 100 MG CAPSULE PO SCH (09:34)
[2016-03-12] MEDS: FERROUS SULFATE 325 MG TABLET PO SCH (09:35)
[2016-03-12] MEDS: PANTOPRAZOLE 40 MG TABLET PO SCH (09:35)
--- NOTE | 2016-03-12 09:51 | Cardiothoracic Progress Note ---
Cardiothoracic Subjective Interval history: Patient is doing well. He is ambulating without assistance. Vital signs the been stable and he is breathing comfortably. His hematocrit this morning is 24.5 but the patient says that he feels well and would prefer to avoid transfusion if possible. We will recheck his hematocrit in the morning. Otherwise we will just gradually increase his activity according to routine postoperative protocol. Exam (Progress Note) - Constitutional Vitals: Period Temp Pulse Resp BP Sys/Grimes Pulse Ox Last 24 Hr 98.4 F-99.7 F 72-85 20-20 96-119/53-58 90-92 Result/EKG - Labs CBC & BMP: 03/12/16 03:30 03/12/16 03:30 Labs: Laboratory Results - last 24 hr 03/08/16 03/11/16 03/11/16 09:22 01:25 04:41 WBC RBC Hgb Hct MCV MCH MCHC RDW Plt Count MPV Neut % (Auto) Lymph % (Auto) [place] % (Auto) Eos % (Auto) Baso % (Auto) Neut # (Auto) Lymph # (Auto) [place] # (Auto) Eos # (Auto) Baso # (Auto) Immature Gran % Nucleated RBC % Immature Gran # Nucleated RBCs # Sodium Potassium Chloride Carbon Dioxide Anion Gap BUN Creatinine GFR Calculation BUN/Creatinine Ratio Glucose POC Glucose 196 H 153 H Calculated Osmolality Calcium Magnesium Total Bilirubin Direct Bilirubin Indirect Bilirubin AST ALT Alkaline Phosphatase Total Creatine Kinase CK-MB (CK-2) CK and CKMB Interp Troponin I Total Protein Albumin Globulin Albumin/Globulin Ratio Blood Type O POSITIVE Antibody Screen Negative Crossmatch See Detail 03/11/16 03/11/16 03/11/16 12:12 16:12 20:01 WBC RBC Hgb Hct MCV MCH MCHC RDW Plt Count MPV Neut % (Auto) Lymph % (Auto) [place] % (Auto) Eos % (Auto) Baso % (Auto) Neut # (Auto) Lymph # (Auto) [place] # (Auto) Eos # (Auto) Baso # (Auto) Immature Gran % Nucleated RBC % Immature Gran # Nucleated RBCs # Sodium Potassium Chloride Carbon Dioxide Anion Gap BUN Creatinine GFR Calculation BUN/Creatinine Ratio Glucose POC Glucose 133 H 145 H 176 H Calculated Osmolality Calcium Magnesium Total Bilirubin Direct Bilirubin Indirect Bilirubin AST ALT Alkaline Phosphatase Total Creatine Kinase CK-MB (CK-2) CK and CKMB Interp Troponin I Total Protein Albumin Globulin Albumin/Globulin Ratio Blood Type Antibody Screen Crossmatch 03/11/16 03/12/16 03/12/16 21:58 03:30 03:30 WBC 16.4 H D RBC 2.70 L Hgb 8.3 L Hct 24.5 L MCV 90.7 MCH 31 MCHC 33.9 RDW 13.0 Plt Count 111 L MPV 10.4 Neut % (Auto) 78.9 H Lymph % (Auto) 10.4 L [place] % (Auto) 9.7 Eos % (Auto) 0.0 Baso % (Auto) 0.1 Neut # (Auto) 13.0 H Lymph # (Auto) 1.7 [place] # (Auto) 1.6 H Eos # (Auto) 0.0 Baso # (Auto) 0.0 Immature Gran % 0.9 Nucleated RBC % 0.0 Immature Gran # 0.14 Nucleated RBCs # 0.00 Sodium 145 Potassium 4.2 Chloride 108 H Carbon Dioxide 31 Anion Gap 10.2 BUN 23 H Creatinine 0.90 GFR Calculation 124 BUN/Creatinine Ratio 25.00 H Glucose 96 POC Glucose 145 H Calculated Osmolality 291.7 Calcium 7.8 L Magnesium 2.1 Total Bilirubin 0.50 Direct Bilirubin 0.1 Indirect Bilirubin 0.4 AST 61 H ALT 46 Alkaline Phosphatase 43 L Total Creatine Kinase 142 D CK-MB (CK-2) 8.4 H D CK and CKMB Interp 5.9 Troponin I 12.900 H Total Protein 4.8 L Albumin 3.0 L Globulin 1.8 L Albumin/Globulin Ratio 1.6 Blood Type Antibody Screen Crossmatch 03/12/16 06:56 WBC RBC Hgb Hct MCV MCH MCHC RDW Plt Count MPV Neut % (Auto) Lymph % (Auto) [place] % (Auto) Eos % (Auto) Baso % (Auto) Neut # (Auto) Lymph # (Auto) [place] # (Auto) Eos # (Auto) Baso # (Auto) Immature Gran % Nucleated RBC % Immature Gran # Nucleated RBCs # Sodium Potassium Chloride Carbon Dioxide Anion Gap BUN Creatinine GFR Calculation BUN/Creatinine Ratio Glucose POC Glucose 94 Calculated Osmolality Calcium Magnesium Total Bilirubin Direct Bilirubin Indirect Bilirubin AST ALT Alkaline Phosphatase Total Creatine Kinase CK-MB (CK-2) CK and CKMB Interp Troponin I Total Protein Albumin Globulin Albumin/Globulin Ratio Blood Type Antibody Screen Crossmatch Quality Measures - VTE Contraindication to Pharmacological VTE Prophylaxis: High Risk of Bleeding Specialty Discharge - Follow Up or Referrals - Discharge Medications No Action Metoprolol Succinate Xl [Toprol Xl] 25 mg PO BEDTIME Aspirin [Ecotrin] 81 mg PO BEDTIME Rosuvastatin Calcium [Crestor] 10 mg PO BEDTIME Fosinopril Sodium 10 mg PO BEDTIME B Complex with Vitamin C [Vitamin B-Complex with Vit C] 1 each PO BEDTIME Co Q 10 50 mg PO BEDTIME
--- NOTE | 2016-03-12 09:56 | Cardiology Progress Note ---
Assessment and Plan (1) Left main coronary artery disease Status: Acute Assessment and plan: Initial assessment 03/09/16 1. 55-year-old WF with controlled hypertension, treated dyslipidemia, status post non-STEMI postoperatively in 2002 after orthopedic surgery with LAD stenting and diagonal angioplasty at that time with good result. He now has several months of worsening exertional angina, and three-vessel disease noted at catheterization or this month including greater than 50% distal left main disease involving the ostium of the LAD. He is now immediately status post 4 vessel CABG hemodynamic stable 2. Cardiac index is modestly diminished as expected postoperatively a 2.2 L/m/m 3. Sinus mechanism rated the 90s 4. On modest doses of Hari-Synephrine 5. Hemoglobin stable 6. Normal LV function by left ventriculogram revealed this month March 10 update: 1. Postoperative day 1 status post 4 vessel CABG doing very well clinically on the floor without shortness of breath or significant complaint 2. Hematocrit is dropped from 42% a 27+ percent; follow-up in the morning 3. Maintaining normal sinus rhythm 4. Postop troponin of 10 is noted 5. Normal LV function noted preoperatively 6. I recommended cardiovascular rehabilitation, which he plans to go to March 11 uptake: 1. POD #2 after 4 vessel CABG doing well overall with 1 mild episode of orthostasis which may have a vasovagal component ("I looked at my incision and and it bothered me") 2. Moderate anemia with only trivial dropped today {27% to 26%) 3. Continued to have modest hyperglycemia (borderline diabetes?) 4. Continue to maintain normal sinus rhythm 5. Troponin peaked at 13 noted March 12 update: 1. POD #3 after 4 vessel CABG still doing very well with no more orthostasis 2. Hypertension is well-controlled 3. Moderate anemia with slight further dropped to 24.5% regarding his hematocrit 4. Continue incentive spirometry and increasing ambulation 5. High intensity statin with low-dose beta es Current Visit: Yes Cardiology - PN: Subj Interval history: Galdino is very talkative today with no complaints. He reports he is examining on the pozo without difficulty. He is had no further dizziness. He is maintaining normal sinus rhythm. He is eating well. He is using his incentive spirometry. He reports slight clear drainage from chest incision without bleeding. Exam (Progress Note) - Constitutional Vitals: Period Temp Pulse Resp BP Sys/Grimes Pulse Ox Last 24 Hr 98.4 F-99.7 F 72-85 20-20 96-119/53-58 90-92 General appearance: no acute distress, over weight - Neck Neck exam: Present: normal inspection - Respiratory Respiratory exam: Present: clear to auscultation bilaterally. Absent: stridor, wheezes - Cardiovascular Cardiovascular exam: Absent: diastolic murmur, rubs, tachycardia - GI/Abdominal GI/Abdominal exam: Present: soft. Absent: tenderness - Extremities Exam Extremities exam: Present: edema (trace edema, lower extremity bilaterally) Result/EKG - Labs CBC & BMP: 03/12/16 03:30 03/12/16 03:30 Labs: Laboratory Results - last 24 hr 03/08/16 03/11/16 03/11/16 09:22 01:25 04:41 WBC RBC Hgb Hct MCV MCH MCHC RDW Plt Count MPV Neut % (Auto) Lymph % (Auto) [place] % (Auto) Eos % (Auto) Baso % (Auto) Neut # (Auto) Lymph # (Auto) [place] # (Auto) Eos # (Auto) Baso # (Auto) Immature Gran % Nucleated RBC % Immature Gran # Nucleated RBCs # Sodium Potassium Chloride Carbon Dioxide Anion Gap BUN Creatinine GFR Calculation BUN/Creatinine Ratio Glucose POC Glucose 196 H 153 H Calculated Osmolality Calcium Magnesium Total Bilirubin Direct Bilirubin Indirect Bilirubin AST ALT Alkaline Phosphatase Total Creatine Kinase CK-MB (CK-2) CK and CKMB Interp Troponin I Total Protein Albumin Globulin Albumin/Globulin Ratio Blood Type O POSITIVE Antibody Screen Negative Crossmatch See Detail 03/11/16 03/11/16 03/11/16 12:12 16:12 20:01 WBC RBC Hgb Hct MCV MCH MCHC RDW Plt Count MPV Neut % (Auto) Lymph % (Auto) [place] % (Auto) Eos % (Auto) Baso % (Auto) Neut # (Auto) Lymph # (Auto) [place] # (Auto) Eos # (Auto) Baso # (Auto) Immature Gran % Nucleated RBC % Immature Gran # Nucleated RBCs # Sodium Potassium Chloride Carbon Dioxide Anion Gap BUN Creatinine GFR Calculation BUN/Creatinine Ratio Glucose POC Glucose 133 H 145 H 176 H Calculated Osmolality Calcium Magnesium Total Bilirubin Direct Bilirubin Indirect Bilirubin AST ALT Alkaline Phosphatase Total Creatine Kinase CK-MB (CK-2) CK and CKMB Interp Troponin I Total Protein Albumin Globulin Albumin/Globulin Ratio Blood Type Antibody Screen Crossmatch 03/11/16 03/12/16 03/12/16 21:58 03:30 03:30 WBC 16.4 H D RBC 2.70 L Hgb 8.3 L Hct 24.5 L MCV 90.7 MCH 31 MCHC 33.9 RDW 13.0 Plt Count 111 L MPV 10.4 Neut % (Auto) 78.9 H Lymph % (Auto) 10.4 L [place] % (Auto) 9.7 Eos % (Auto) 0.0 Baso % (Auto) 0.1 Neut # (Auto) 13.0 H Lymph # (Auto) 1.7 [place] # (Auto) 1.6 H Eos # (Auto) 0.0 Baso # (Auto) 0.0 Immature Gran % 0.9 Nucleated RBC % 0.0 Immature Gran # 0.14 Nucleated RBCs # 0.00 Sodium 145 Potassium 4.2 Chloride 108 H Carbon Dioxide 31 Anion Gap 10.2 BUN 23 H Creatinine 0.90 GFR Calculation 124 BUN/Creatinine Ratio 25.00 H Glucose 96 POC Glucose 145 H Calculated Osmolality 291.7 Calcium 7.8 L Magnesium 2.1 Total Bilirubin 0.50 Direct Bilirubin 0.1 Indirect Bilirubin 0.4 AST 61 H ALT 46 Alkaline Phosphatase 43 L Total Creatine Kinase 142 D CK-MB (CK-2) 8.4 H D CK and CKMB Interp 5.9 Troponin I 12.900 H Total Protein 4.8 L Albumin 3.0 L Globulin 1.8 L Albumin/Globulin Ratio 1.6 Blood Type Antibody Screen Crossmatch 03/12/16 06:56 WBC RBC Hgb Hct MCV MCH MCHC RDW Plt Count MPV Neut % (Auto) Lymph % (Auto) [place] % (Auto) Eos % (Auto) Baso % (Auto) Neut # (Auto) Lymph # (Auto) [place] # (Auto) Eos # (Auto) Baso # (Auto) Immature Gran % Nucleated RBC % Immature Gran # Nucleated RBCs # Sodium Potassium Chloride Carbon Dioxide Anion Gap BUN Creatinine GFR Calculation BUN/Creatinine Ratio Glucose POC Glucose 94 Calculated Osmolality Calcium Magnesium Total Bilirubin Direct Bilirubin Indirect Bilirubin AST ALT Alkaline Phosphatase Total Creatine Kinase CK-MB (CK-2) CK and CKMB Interp Troponin I Total Protein Albumin Globulin Albumin/Globulin Ratio Blood Type Antibody Screen Crossmatch Quality Measures - VTE Contraindication to Pharmacological VTE Prophylaxis: High Risk of Bleeding Specialty Discharge - Follow Up or Referrals - Discharge Medications No Action Metoprolol Succinate Xl [Toprol Xl] 25 mg PO BEDTIME Aspirin [Ecotrin] 81 mg PO BEDTIME Rosuvastatin Calcium [Crestor] 10 mg PO BEDTIME Fosinopril Sodium 10 mg PO BEDTIME B Complex with Vitamin C [Vitamin B-Complex with Vit C] 1 each PO BEDTIME Co Q 10 50 mg PO BEDTIME
[2016-03-12] MEDS: oxyCODONE/ACETAMINOPHEN 5-325 MG TABLET PO PRN (14:45)
[2016-03-12] MEDS: ROSUVASTATIN 10 MG TABLET PO SCH (21:48)
[2016-03-12] MEDS: METOPROLOL SUCCINATE XL 25 MG TABLET PO SCH (21:48)
[2016-03-12] MEDS: MULTIVITAMIN (BEROCCA) TABLET PO SCH (21:48)
[2016-03-12] MEDS: FOSINOPRIL 10 MG TABLET PO SCH (21:48)
[2016-03-12] MEDS: COENZYME Q10 100 MG CAPSULE PO SCH (21:48)
[2016-03-13] MEDS: INSULIN REGULAR 100 UNIT/ML SUBCUT SCH ×5 (02:34→21:19)
[2016-03-13] MEDS: KETOROLAC 30 MG/1 ML VIAL IV SCH (06:09)
--- NOTE | 2016-03-13 08:27 | Cardiothoracic Progress Note ---
Cardiothoracic Subjective Interval history: No real problems. Vital signs are stable and the patient is breathing comfortably. He is ambulating without assistance. We will gradually increase activity according to routine postoperative protocol and he may be ready to go home tomorrow. Exam (Progress Note) - Constitutional Vitals: Period Temp Pulse Resp BP Sys/Grimes Pulse Ox Last 24 Hr 98.3 F-98.9 F 76-87 16-20 111-143/53-67 92-97 Result/EKG - Labs CBC & BMP: 03/12/16 03:30 03/12/16 03:30 Labs: Laboratory Results - last 24 hr 03/12/16 03/12/16 03/12/16 06:56 11:57 16:14 POC Glucose 94 110 H 135 H 03/12/16 03/13/16 19:33 06:58 POC Glucose 143 H 95 Quality Measures - VTE Contraindication to Pharmacological VTE Prophylaxis: High Risk of Bleeding Specialty Discharge - Follow Up or Referrals - Discharge Medications No Action Metoprolol Succinate Xl [Toprol Xl] 25 mg PO BEDTIME Aspirin [Ecotrin] 81 mg PO BEDTIME Rosuvastatin Calcium [Crestor] 10 mg PO BEDTIME Fosinopril Sodium 10 mg PO BEDTIME B Complex with Vitamin C [Vitamin B-Complex with Vit C] 1 each PO BEDTIME Co Q 10 50 mg PO BEDTIME
[2016-03-13] MEDS: DOCUSATE SODIUM 100 MG CAPSULE PO SCH (08:40)
[2016-03-13] MEDS: PANTOPRAZOLE 40 MG TABLET PO SCH (08:40)
[2016-03-13] MEDS: ASPIRIN EC 325 MG TABLET PO SCH (08:40)
[2016-03-13] MEDS: AMIODARONE 200 MG TABLET PO SCH ×2 (08:40→21:13)
[2016-03-13] MEDS: FERROUS SULFATE 325 MG TABLET PO SCH (08:41)
[2016-03-13] MEDS: oxyCODONE/ACETAMINOPHEN 5-325 MG TABLET PO PRN (08:43)
--- NOTE | 2016-03-13 09:58 | Cardiology Progress Note ---
Assessment and Plan (1) Left main coronary artery disease Status: Acute Assessment and plan: Initial assessment 03/09/16 1. 55-year-old WF with controlled hypertension, treated dyslipidemia, status post non-STEMI postoperatively in 2002 after orthopedic surgery with LAD stenting and diagonal angioplasty at that time with good result. He now has several months of worsening exertional angina, and three-vessel disease noted at catheterization or this month including greater than 50% distal left main disease involving the ostium of the LAD. He is now immediately status post 4 vessel CABG hemodynamic stable 2. Cardiac index is modestly diminished as expected postoperatively a 2.2 L/m/m 3. Sinus mechanism rated the 90s 4. On modest doses of Hari-Synephrine 5. Hemoglobin stable 6. Normal LV function by left ventriculogram revealed this month March 10 update: 1. Postoperative day 1 status post 4 vessel CABG doing very well clinically on the floor without shortness of breath or significant complaint 2. Hematocrit is dropped from 42% a 27+ percent; follow-up in the morning 3. Maintaining normal sinus rhythm 4. Postop troponin of 10 is noted 5. Normal LV function noted preoperatively 6. I recommended cardiovascular rehabilitation, which he plans to go to March 11 uptake: 1. POD #2 after 4 vessel CABG doing well overall with 1 mild episode of orthostasis which may have a vasovagal component ("I looked at my incision and and it bothered me") 2. Moderate anemia with only trivial dropped today {27% to 26%) 3. Continued to have modest hyperglycemia (borderline diabetes?) 4. Continue to maintain normal sinus rhythm 5. Troponin peaked at 13 noted March 12 update: 1. POD #3 after 4 vessel CABG still doing very well with no more orthostasis 2. Hypertension is well-controlled 3. Moderate anemia with slight further dropped to 24.5% regarding his hematocrit 4. Continue incentive spirometry and increasing ambulation 5. High intensity statin with low-dose beta es March 13 update: 1. POD #4 after 4 vessel CABG doing well with only complaints of fatigue which may be related to his anemia 2. Hypertension is well-controlled 3. Need to increase walking; we discussed avoiding falls and to walk with the nurse in the [place] the first time he goes 4. He is appropriately on iron therapy; he is getting it once a day but could be increased to 2-3 times a day if needed 5. No dysrhythmia; consider decreasing or discontinuing amiodarone 6. Most glucose checks are elevated, suggesting he has "borderline diabetes"; he may need Glucophage her other medication started as an outpatient Current Visit: Yes Cardiology - PN: Subj Interval history: Galdino has no real complaints of that he seems to have fatigue. This may be related to his anemia. He is not having any active bleeding. He is not having chest discomfort palpitations presyncope or syncope. He is only walked in the room "I did not want to noon everyone" Exam (Progress Note) - Constitutional Vitals: Period Temp Pulse Resp BP Sys/Grimes Pulse Ox Last 24 Hr 98.3 F-98.9 F 76-87 16-20 111-143/53-67 92-97 General appearance: no acute distress, over weight - Head Head exam: Present: normal inspection, normocephalic, atraumatic - Neck Neck exam: Present: normal inspection - Respiratory Respiratory exam: Present: clear to auscultation bilaterally. Absent: rhonchi, stridor, wheezes - Cardiovascular Cardiovascular exam: Present: regular rate and rhythm. Absent: diastolic murmur , rubs - GI/Abdominal GI/Abdominal exam: Present: soft. Absent: tenderness - Extremities Exam Extremities exam: Present: edema (1-2+ bilateral) Result/EKG - Labs CBC & BMP: 03/12/16 03:30 03/12/16 03:30 Labs: Laboratory Results - last 24 hr 03/12/16 03/12/16 03/12/16 11:57 16:14 19:33 POC Glucose 110 H 135 H 143 H 03/13/16 06:58 POC Glucose 95 Quality Measures - VTE Contraindication to Pharmacological VTE Prophylaxis: High Risk of Bleeding Specialty Discharge - Follow Up or Referrals Follow up with: Chapo Centeno MD [Physician] - 1 Week (Follow-up with me in one to 2 weeks with EKG FLP CMP CBC and hemoglobin A1c) - Discharge Medications No Action Metoprolol Succinate Xl [Toprol Xl] 25 mg PO BEDTIME Aspirin [Ecotrin] 81 mg PO BEDTIME Rosuvastatin Calcium [Crestor] 10 mg PO BEDTIME Fosinopril Sodium 10 mg PO BEDTIME B Complex with Vitamin C [Vitamin B-Complex with Vit C] 1 each PO BEDTIME Co Q 10 50 mg PO BEDTIME
[2016-03-13] MEDS ORDERED: AMIODARONE INJ 150 MG in DEXTROSE 5% 100 ML IV ONE (13:24)
[2016-03-13] MEDS ORDERED: DILTIAZEM 50 MG/10 ML VIAL IV ONE (13:25)
[2016-03-13] MEDS ORDERED: AMIODARONE 150 MG/3 ML VIAL ONE (13:30)
[2016-03-13] MEDS ORDERED: DILTIAZEM 100 MG VIAL.ADD IV ONE (13:30)
[2016-03-13] MEDS ORDERED: METOPROLOL SUCCINATE XL 25 MG TABLET PO ONE (15:50)
[2016-03-13] MEDS: DILTIAZEM INJ 100 MG in SODIUM CHLORIDE 0.9% 100 ML IV SCH ×2 (16:02→22:35)
[2016-03-13] MEDS: METOPROLOL SUCCINATE XL 25 MG TABLET PO SCH (21:12)
[2016-03-13] MEDS: ROSUVASTATIN 10 MG TABLET PO SCH (21:13)
[2016-03-13] MEDS: COENZYME Q10 100 MG CAPSULE PO SCH (21:13)
[2016-03-13] MEDS: FOSINOPRIL 10 MG TABLET PO SCH (21:13)
[2016-03-13] MEDS: MULTIVITAMIN (BEROCCA) TABLET PO SCH (21:13)
[2016-03-14 04:50] LABS: Basophils % 0.1 % (0.0-0.8); Eosinophils # 0.5 10*3/uL (0.0-0.87); Eosinophils % 4.6 % (0.00-10.9); Hematocrit 26.7 VOL% (42.0-52.0); Hemoglobin 8.8 GM/DL (14.0-18.0); Immature Granulocytes Absolute 0.12 #; Lymphocytes # 1.7 10*3/uL (1.4-4.0); Lymphocytes % 14.7 % (21.2-54.2); Mean Corpuscular Hemoglobin 30 PG (27-34); Mean Corpuscular Volume 90.5 FL (87-102); Mean Platelet Volume 10.2 FL (9.6-12.0); Monocytes # 1.1 10*3/uL (0.11-0.8); Monocytes % 9.6 % (1.7-12.7); Neutrophils # 8.1 10*3/uL (1.4-7.4); Platelet Count 181 10*3/uL (130-400); Red Blood Count 2.95 10*6/uL (3.8-5.5); White Blood Count 11.5 10*3/uL (4.5-13.71)
[2016-03-14 05:29] LABS: Alanine Aminotransferase 71 U/L (16-61); Albumin 2.6 G/DL (3.4-5.0); Alkaline Phosphatase 65 U/L (45-117); Aspartate Amino Transferase 38 U/L (0-37); Bilirubin,Direct 0.2 MG/DL (0.0-0.20); Bilirubin,Indirect 0.6 MG/DL (0.0-1.0); Blood Urea Nitrogen 15 MG/DL (7-18); Calcium 7.7 MG/DL (8.5-10.1); Glucose 90 MG/DL (74-106); Magnesium 1.9 MG/DL (1.8-2.4); Potassium 4.3 MMOL/L (3.5-5.1); Sodium 143 MMOL/L (136-145); Total Protein 4.7 G/DL (6.4-8.3)
[2016-03-14] MEDS: INSULIN REGULAR 100 UNIT/ML SUBCUT SCH ×4 (08:30→21:32)
[2016-03-14] MEDS ORDERED: AMIODARONE INJ 100 MG in DEXTROSE 5% 100 ML IV ONE (09:33)
--- NOTE | 2016-03-14 09:38 | Cardiothoracic Progress Note ---
Cardiothoracic Subjective Interval history: Patient looks and feels okay. Blood pressure has been stable but he has developed atrial flutter since yesterday afternoon. The rate has been controlled with Cardizem infusion but he has not converted on oral amiodarone. We will given IV bolus of amiodarone and begin on intravenous infusion of amiodarone. We'll also add Eliquis for anticoagulation. He is already on metoprolol. We will defer to cardiology for any changes in this regimen or any recommendations for cardioversion. Exam (Progress Note) - Constitutional Vitals: Period Temp Pulse Resp BP Sys/Grimes Pulse Ox Last 24 Hr 97.1 F-99.2 F 64-142 16-20 91-125/53-85 91-100 Result/EKG - Labs CBC & BMP: 03/14/16 04:30 03/14/16 04:30 Labs: Laboratory Results - last 24 hr 03/13/16 03/14/16 03/14/16 19:30 04:30 04:30 WBC 11.5 RBC 2.95 L Hgb 8.8 L Hct 26.7 L MCV 90.5 MCH 30 MCHC 33.0 RDW 13.0 Plt Count 181 D MPV 10.2 Neut % (Auto) 70.0 Lymph % (Auto) 14.7 L [place] % (Auto) 9.6 Eos % (Auto) 4.6 Baso % (Auto) 0.1 Neut # (Auto) 8.1 H Lymph # (Auto) 1.7 [place] # (Auto) 1.1 H Eos # (Auto) 0.5 Baso # (Auto) 0.0 Immature Gran % 1.0 Nucleated RBC % 0.0 Immature Gran # 0.12 Nucleated RBCs # 0.00 Sodium 143 Potassium 4.3 Chloride 108 H Carbon Dioxide 27 Anion Gap 12.3 BUN 15 Creatinine 0.80 GFR Calculation 135 BUN/Creatinine Ratio 18.00 Glucose 90 POC Glucose 159 H Calculated Osmolality 285.0 Calcium 7.7 L Magnesium 1.9 Total Bilirubin 0.80 Direct Bilirubin 0.2 Indirect Bilirubin 0.6 AST 38 H ALT 71 H Alkaline Phosphatase 65 Total Creatine Kinase 42 D CK-MB (CK-2) 2.0 D Troponin I 6.190 H D Total Protein 4.7 L Albumin 2.6 L Globulin 2.1 L Albumin/Globulin Ratio 1.2 03/14/16 07:05 WBC RBC Hgb Hct MCV MCH MCHC RDW Plt Count MPV Neut % (Auto) Lymph % (Auto) [place] % (Auto) Eos % (Auto) Baso % (Auto) Neut # (Auto) Lymph # (Auto) [place] # (Auto) Eos # (Auto) Baso # (Auto) Immature Gran % Nucleated RBC % Immature Gran # Nucleated RBCs # Sodium Potassium Chloride Carbon Dioxide Anion Gap BUN Creatinine GFR Calculation BUN/Creatinine Ratio Glucose POC Glucose 113 H Calculated Osmolality Calcium Magnesium Total Bilirubin Direct Bilirubin Indirect Bilirubin AST ALT Alkaline Phosphatase Total Creatine Kinase CK-MB (CK-2) Troponin I Total Protein Albumin Globulin Albumin/Globulin Ratio Quality Measures - VTE Contraindication to Pharmacological VTE Prophylaxis: High Risk of Bleeding Specialty Discharge - Follow Up or Referrals Follow up with: Chapo Centeno MD [Physician] - 1 Week (Follow-up with me in one to 2 weeks with EKG FLP CMP CBC and hemoglobin A1c) - Discharge Medications No Action Metoprolol Succinate Xl [Toprol Xl] 25 mg PO BEDTIME Aspirin [Ecotrin] 81 mg PO BEDTIME Rosuvastatin Calcium [Crestor] 10 mg PO BEDTIME Fosinopril Sodium 10 mg PO BEDTIME B Complex with Vitamin C [Vitamin B-Complex with Vit C] 1 each PO BEDTIME Co Q 10 50 mg PO BEDTIME
--- NOTE | 2016-03-14 09:43 | XRay Report ---
XR chest 2V Indication: Shortness of breath Comparison: Chest x-ray 03/12/2016 Technique: PA and lateral chest x-ray was performed. Findings: Bibasilar parenchymal opacities remain present with some increasing confluence of airspace opacities in the right cardiophrenic angle. Chest otherwise demonstrates little change. Impression: 1. Worsening atelectasis or developing infectious process within the right cardiophrenic angle could be considered. 03/14/2016 9:40 AM PROCEDURE INTERPRETED AT [facility] DEPARTMENT OF RADIOLOGY Final Report Signed by: Dr. Edgar Garcia
[2016-03-14] MEDS: ASPIRIN EC 325 MG TABLET PO SCH (09:47)
[2016-03-14] MEDS: FERROUS SULFATE 325 MG TABLET PO SCH (09:47)
[2016-03-14] MEDS: DOCUSATE SODIUM 100 MG CAPSULE PO SCH (09:47)
[2016-03-14] MEDS: PANTOPRAZOLE 40 MG TABLET PO SCH (09:48)
[2016-03-14] MEDS: AMIODARONE 200 MG TABLET PO SCH (09:48)
[2016-03-14] MEDS: AMIODARONE INJ 450 MG in DEXTROSE 5% 241 ML IV SCH (10:00)
--- NOTE | 2016-03-14 11:35 | Cardiology Progress Note ---
I, Alejandra Alva RN, am scribing for, and in the presence of, Jerman Fuentes MD 11:27. Assessment and Plan - Time spent with patient Time spent with patient: Less than 30 minutes (1) Left main coronary artery disease Status: Acute Assessment and plan: Initial assessment 03/09/16 1. 55-year-old WF with controlled hypertension, treated dyslipidemia, status post non-STEMI postoperatively in 2002 after orthopedic surgery with LAD stenting and diagonal angioplasty at that time with good result. He now has several months of worsening exertional angina, and three-vessel disease noted at catheterization or this month including greater than 50% distal left main disease involving the ostium of the LAD. He is now immediately status post 4 vessel CABG hemodynamic stable 2. Cardiac index is modestly diminished as expected postoperatively a 2.2 L/m/m 3. Sinus mechanism rated the 90s 4. On modest doses of Hari-Synephrine 5. Hemoglobin stable 6. Normal LV function by left ventriculogram revealed this month March 10 update: 1. Postoperative day 1 status post 4 vessel CABG doing very well clinically on the floor without shortness of breath or significant complaint 2. Hematocrit is dropped from 42% a 27+ percent; follow-up in the morning 3. Maintaining normal sinus rhythm 4. Postop troponin of 10 is noted 5. Normal LV function noted preoperatively 6. I recommended cardiovascular rehabilitation, which he plans to go to March 11 uptake: 1. POD #2 after 4 vessel CABG doing well overall with 1 mild episode of orthostasis which may have a vasovagal component ("I looked at my incision and and it bothered me") 2. Moderate anemia with only trivial dropped today {27% to 26%) 3. Continued to have modest hyperglycemia (borderline diabetes?) 4. Continue to maintain normal sinus rhythm 5. Troponin peaked at 13 noted March 12 update: 1. POD #3 after 4 vessel CABG still doing very well with no more orthostasis 2. Hypertension is well-controlled 3. Moderate anemia with slight further dropped to 24.5% regarding his hematocrit 4. Continue incentive spirometry and increasing ambulation 5. High intensity statin with low-dose beta es March 13 update: 1. POD #4 after 4 vessel CABG doing well with only complaints of fatigue which may be related to his anemia 2. Hypertension is well-controlled 3. Need to increase walking; we discussed avoiding falls and to walk with the nurse in the [place] the first time he goes 4. He is appropriately on iron therapy; he is getting it once a day but could be increased to 2-3 times a day if needed 5. No dysrhythmia; consider decreasing or discontinuing amiodarone 6. Most glucose checks are elevated, suggesting he has "borderline diabetes"; he may need Glucophage her other medication started as an outpatient March 14 update: 1. POD #5 after 4 vessel CABG doing well with mild shortness of breath. 2. In atrial fibrillation- On IV Cardiazem but has not converted on oral amiodarone. Planning to give IV bolus of amiodarone and begin on IV amio infusion. 3. Remains anemic with hematocrit 26.7 today. Current Visit: Yes (2) Dyslipidemia Status: Chronic Assessment and plan: He has been on Crestor for this. We'll continue this. Current Visit: Yes (3) Hypertension Status: Chronic Assessment and plan: His blood pressures of been stable. Continue to monitor. Current Visit: Yes (4) Atrial fibrillation Status: Acute Assessment and plan: He developed atrial fibrillation yesterday discussed in history present illness. He is on IV amiodarone now. We will monitor this. Hopefully electrocardioversion will not be necessary. Current Visit: Yes Cardiology - PN: Subj Interval history: Mr. Cochran reports he is feeling well today other than having issues with his heart rhythm in that he went from sinus rhythm into atrial fibrillation yesterday with rapid ventricular response. He was started on IV diltiazem and oral amiodarone but has remained in atrial fibrillation with controlled rate on IV Cardiazem. Today his oral amiodarone was stopped and placed on IV amiodarone. He denies chest pain, palpitations, syncope. He reports he does have mild shortness of breath when he does too much. He has had no surgical complications. His appetite is fair. Exam (Progress Note) - Constitutional Vitals: Period Temp Pulse Resp BP Sys/Grimes Pulse Ox Last 24 Hr 97.1 F-99.2 F 64-142 16-20 91-125/53-85 91-100 General appearance: no acute distress, over weight - Head Head exam: Present: normal inspection, normocephalic - Eye Eye exam: Absent: conjunctival injection, periorbital swelling, scleral icterus Pupils: Present: JANETH - ENT ENT exam: Present: normal exam, normal external ear exam - Neck Neck exam: Present: normal inspection. Absent: tenderness - Respiratory Respiratory exam: Present: clear to auscultation bilaterally. Absent: accessory muscle use, rales, rhonchi, stridor, wheezes - Cardiovascular Cardiovascular exam: Present: irregular rhythm, systolic murmur (along the left sternal border). Absent: carotid bruit, diastolic murmur - GI/Abdominal GI/Abdominal exam: Present: normal bowel sounds, soft. Absent: distended, mass , tenderness - Extremities Exam Extremities exam: Present: edema (1-2+ bilaterally), other (medial lower extremity incisions well approximated, no redness, but has some mild edema. ). Absent: calf tenderness - Neurological Exam Neurological exam: Present: alert, oriented X3, other (grossly intact, no resting or essential tremor) - Psychiatric Psychiatric exam: Present: normal affect, normal mood - Skin Skin exam: Present: normal color, warm, dry, other (midline sternal incision well approximated, no bleeing, redness, or swelling. ) Result/EKG - Labs CBC & BMP: 03/14/16 04:30 03/14/16 04:30 Lab Results: I have reviewed the past 24 hour labs Labs: Laboratory Results - last 24 hr 03/13/16 03/14/16 03/14/16 19:30 04:30 04:30 WBC 11.5 RBC 2.95 L Hgb 8.8 L Hct 26.7 L MCV 90.5 MCH 30 MCHC 33.0 RDW 13.0 Plt Count 181 D MPV 10.2 Neut % (Auto) 70.0 Lymph % (Auto) 14.7 L [place] % (Auto) 9.6 Eos % (Auto) 4.6 Baso % (Auto) 0.1 Neut # (Auto) 8.1 H Lymph # (Auto) 1.7 [place] # (Auto) 1.1 H Eos # (Auto) 0.5 Baso # (Auto) 0.0 Immature Gran % 1.0 Nucleated RBC % 0.0 Immature Gran # 0.12 Nucleated RBCs # 0.00 Sodium 143 Potassium 4.3 Chloride 108 H Carbon Dioxide 27 Anion Gap 12.3 BUN 15 Creatinine 0.80 GFR Calculation 135 BUN/Creatinine Ratio 18.00 Glucose 90 POC Glucose 159 H Calculated Osmolality 285.0 Calcium 7.7 L Magnesium 1.9 Total Bilirubin 0.80 Direct Bilirubin 0.2 Indirect Bilirubin 0.6 AST 38 H ALT 71 H Alkaline Phosphatase 65 Total Creatine Kinase 42 D CK-MB (CK-2) 2.0 D Troponin I 6.190 H D Total Protein 4.7 L Albumin 2.6 L Globulin 2.1 L Albumin/Globulin Ratio 1.2 03/14/16 07:05 WBC RBC Hgb Hct MCV MCH MCHC RDW Plt Count MPV Neut % (Auto) Lymph % (Auto) [place] % (Auto) Eos % (Auto) Baso % (Auto) Neut # (Auto) Lymph # (Auto) [place] # (Auto) Eos # (Auto) Baso # (Auto) Immature Gran % Nucleated RBC % Immature Gran # Nucleated RBCs # Sodium Potassium Chloride Carbon Dioxide Anion Gap BUN Creatinine GFR Calculation BUN/Creatinine Ratio Glucose POC Glucose 113 H Calculated Osmolality Calcium Magnesium Total Bilirubin Direct Bilirubin Indirect Bilirubin AST ALT Alkaline Phosphatase Total Creatine Kinase CK-MB (CK-2) Troponin I Total Protein Albumin Globulin Albumin/Globulin Ratio - Impressions Impressions: Telemetry with atrial fibrillation/flutter with controlled ventricular response. Quality Measures - VTE Contraindication to Pharmacological VTE Prophylaxis: High Risk of Bleeding Specialty Discharge - Follow Up or Referrals Follow up with: Chapo Centeno MD [Physician] - 1 Week (Follow-up with me in one to 2 weeks with EKG FLP CMP CBC and hemoglobin A1c) - Discharge Medications No Action Metoprolol Succinate Xl [Toprol Xl] 25 mg PO BEDTIME Aspirin [Ecotrin] 81 mg PO BEDTIME Rosuvastatin Calcium [Crestor] 10 mg PO BEDTIME Fosinopril Sodium 10 mg PO BEDTIME B Complex with Vitamin C [Vitamin B-Complex with Vit C] 1 each PO BEDTIME Co Q 10 50 mg PO BEDTIME Alfredo Hilliard John Timothy, MD, personally performed the services described in this documentation, ascribed by Alejandra Alva RN in my presence, and it is both accurate and complete [id number] .
[2016-03-14] MEDS: APIXABAN 2.5 MG TABLET PO SCH ×2 (12:35→21:39)
[2016-03-14] MEDS: DILTIAZEM INJ 100 MG in SODIUM CHLORIDE 0.9% 100 ML IV SCH (13:12)
[2016-03-14] MEDS ORDERED: METOPROLOL SUCCINATE XL 50 MG TABLET PO SCH (21:00)
[2016-03-14] MEDS: FOSINOPRIL 10 MG TABLET PO SCH (21:39)
[2016-03-14] MEDS: ROSUVASTATIN 10 MG TABLET PO SCH (21:40)
[2016-03-14] MEDS: MULTIVITAMIN (BEROCCA) TABLET PO SCH (21:40)
[2016-03-14] MEDS: COENZYME Q10 100 MG CAPSULE PO SCH (21:40)
[2016-03-14] MEDS: METOPROLOL SUCCINATE XL 25 MG TABLET PO SCH (21:44)
[2016-03-15] MEDS: MAGNESIUM HYDROXIDE SUSP 30 ML UDCUP PO PRN ×2 (00:01→08:50)
[2016-03-15] MEDS: AMIODARONE INJ 450 MG in DEXTROSE 5% 241 ML IV SCH ×2 (01:34→23:12)
[2016-03-15 05:41] LABS: Basophils % 0.2 % (0.0-0.8); Eosinophils # 0.7 10*3/uL (0.0-0.87); Eosinophils % 5.1 % (0.00-10.9); Hematocrit 28.2 VOL% (42.0-52.0); Hemoglobin 9.2 GM/DL (14.0-18.0); Immature Granulocytes Absolute 0.13 #; Lymphocytes # 1.8 10*3/uL (1.4-4.0); Lymphocytes % 14.3 % (21.2-54.2); Mean Corpuscular HGB Conc 32.6 GM/DL (32-36); Mean Corpuscular Hemoglobin 30 PG (27-34); Mean Corpuscular Volume 91.3 FL (87-102); Mean Platelet Volume 10.3 FL (9.6-12.0); Monocytes # 1.4 10*3/uL (0.11-0.8); Monocytes % 10.6 % (1.7-12.7); Neutrophils # 8.9 10*3/uL (1.4-7.4); Neutrophils % 68.8 % (38.7-73.9); Platelet Count 235 10*3/uL (130-400); Red Blood Count 3.09 10*6/uL (3.8-5.5); Red Cell Distribution Width 13.1 % (9.3-17.3); White Blood Count 12.9 10*3/uL (4.5-13.71)
[2016-03-15 06:07] LABS: Alanine Aminotransferase 71 U/L (16-61); Albumin 2.8 G/DL (3.4-5.0); Alkaline Phosphatase 75 U/L (45-117); Aspartate Amino Transferase 29 U/L (0-37); Bilirubin,Direct 0.1 MG/DL (0.0-0.20); Bilirubin,Indirect 0.7 MG/DL (0.0-1.0); Blood Urea Nitrogen 16 MG/DL (7-18); Calcium 8.1 MG/DL (8.5-10.1); Glucose 100 MG/DL (74-106); Magnesium 2.1 MG/DL (1.8-2.4); Osmolality,Calculated 288.7 MOS/KG (273-304); Potassium 4.5 MMOL/L (3.5-5.1); Sodium 145 MMOL/L (136-145); Total Protein 5.2 G/DL (6.4-8.3)
[2016-03-15 06:11] LABS: Eosinophils 2 % (0-10); Lymphocytes 19 % (20-55); Segmented Neutrophils 74 % (50-85); Total Cells Counted 100
[2016-03-15 06:12] LABS: Hypochromasia 1+; Ovalocytes Slight; Platelet Estimate Normal
--- NOTE | 2016-03-15 07:16 | EKG Report ---
Stationary ECG Study [facility] Test Date: 03/15/2016 7:16:07 AM Pat Name: CHAN HASSAN Department: Room: 262 Gender: M Chief Electrician: LO : 1960 Requested by: Lowell Valdivia Order Number: [id number] Reading MD: LYNETTE ELDER Intervals [place] Rate: 99 P: 999 GA: 0 QRS: 98 QRSD: 97 T: 92 QT: 359 QTc: 415 Interpretive Statements ATRIAL FLUTTER/TACHYCARDIA BORDERLINE RIGHT AXIS DEVIATION ABNORMAL RHYTHM ECG INTERPRETATION BASED ON A DEFAULT AGE OF 40 YEARS Electronically Signed On 03-15-16 13:39:07 DESIGN CELL ENGINEER by LYNETTE ELDER [email or web address]
--- NOTE | 2016-03-15 08:07 | XRay Report ---
Exam: XR chest 2V Indication: Central venous catheter Shortness of breath Comparison study: 03/14/16 Findings: The heart, mediastinum and bony structures are stable from prior. Borderline cardiomegaly is noted. The right-sided central venous catheter is in similar position with the tip terminating in the lower right atrium. Patchy right basilar opacities are slightly decreased from prior. Lungs otherwise appear clear. There is no pneumothorax. No significant pleural effusion is identified. Median sternotomy wiring appears stable. Impression: Stable mild cardiomegaly. Slight improved aeration within the right lung base with partial clearing of nonspecific right basilar opacities. PROCEDURE INTERPRETED AT [facility] DEPARTMENT OF RADIOLOGY Final Report Signed by: Nabil Nash
[2016-03-15] MEDS: INSULIN REGULAR 100 UNIT/ML SUBCUT SCH ×4 (08:24→21:43)
[2016-03-15] MEDS ORDERED: FUROSEMIDE 40 MG/4 ML VIAL IV ONE (08:36)
--- NOTE | 2016-03-15 08:38 | Cardiology Progress Note ---
I, Kyra Russell RN, am scribing for, and in the presence of, Jerman Fuentes MD 08:28. Assessment and Plan - Time spent with patient Time spent with patient: Less than 30 minutes (1) Atrial fibrillation Status: Acute Assessment and plan: This is actually atrial fibrillation/flutter. I favor flutter this morning. He stated time having rapid ventricular response. This may be associated though with his increased activity in the room. Current Visit: Yes (2) Left main coronary artery disease Status: Acute Assessment and plan: He is post coronary bypass surgery. He is doing well in regard to the surgery. Current Visit: Yes (3) Dyslipidemia Status: Chronic Assessment and plan: He is on lipid management with statin drugs. Current Visit: Yes (4) Hypertension Status: Chronic Assessment and plan: His blood pressures are stable continue present therapy. Current Visit: Yes (5) Status post coronary artery bypass grafting Status: Acute Assessment and plan: From surgical standpoint is doing well. He does have a little bit of edema of his left lower leg. He may benefit from some Lasix. Current Visit: Yes Cardiology - PN: Subj Interval history: Patient housed on telemetry. Awake and alert with no obvious distress. States he feels much better this morning he has already had a shower is eating breakfast. At this time his heart rates are increased and may be secondary to his increased activity. Than he did yesterday, and says he plans to get a shower, eat breakfast, and ambulate with PT assist as he felt "too lousy" to do those things yesterday. IV Cardizem infusion at 5 mg/hr. IV amiodarone infusion started yesterday to attempt to convert to sinus rhythm, and this is currently at 0.5 mg/min. Remains in atrial fibrillation with rate 140's currently. Continues to have atrial flutter noted per tele monitor. Denies CP , SOB, palpitations, presyncope s/s with this. BP stable. Electrolytes reviewed and within normal limits. Stress situation with the patient and his . I reviewed his situation with persistent atrial flutter. Our continues on amiodarone today and hopefully have a high enough level tissue was seen Cardioversion tomorrow if he persists. I may switch him to oral diltiazem and adjust his beta es. Discuss with Dr. cardioversion with the patient and his reviewing how the procedure be carried out as well as its indications and risks. I discussed the risks with him which include but not limited to stroke, dysrhythmia that could be life-threatening any cause of . They voice understanding and agree to proceed. We'll plan on carry out in the morning. Exam (Progress Note) - Constitutional Vitals: Period Temp Pulse Resp BP Sys/Grimes Pulse Ox Last 24 Hr 97.5 F-98.9 F 64-105 16-20 92-137/53-64 91-96 Exam: General appearance: no acute distress, over weight - Head Head exam: Present: normal inspection, normocephalic - Eye Eye exam: Absent: conjunctival injection, periorbital swelling, scleral icterus Pupils: Present: JANETH - ENT ENT exam: Present: normal exam, normal external ear exam - Neck Neck exam: Present: normal inspection. Absent: tenderness - Respiratory Respiratory exam: Present: clear to auscultation bilaterally. Absent: accessory muscle use, rales, rhonchi, stridor, wheezes - Cardiovascular Cardiovascular exam: Present: irregular rhythm, tachycardia, systolic murmur ( along the left sternal border). Absent: carotid bruit, diastolic murmur - GI/Abdominal GI/Abdominal exam: Present: normal bowel sounds, soft. Absent: distended, mass , tenderness - Extremities Exam Extremities exam: Present: edema (1-2+ bilaterally), other (medial lower extremity incisions well approximated, no redness, but has some mild edema. moderate amount bruising various stages of healing around sites). Absent: calf tenderness - Neurological Exam Neurological exam: Present: alert, oriented X3, other (grossly intact, no resting or essential tremor) - Psychiatric Psychiatric exam: Present: normal affect, normal mood - Skin Skin exam: Present: normal color, warm, dry, other (midline sternal incision well approximated, no bleeding, redness, or swelling. moderate amount bruising around incision site, healing well. ) Result/EKG - Labs CBC & BMP: 03/15/16 03:57 03/15/16 03:57 Lab Results: I have reviewed the past 24 hour labs (his laboratory including blood counts and chemistries are stable.) Labs: Laboratory Results - last 24 hr 03/14/16 03/15/16 03/15/16 11:58 03:57 03:57 WBC 12.9 RBC 3.09 L Hgb 9.2 L Hct 28.2 L MCV 91.3 MCH 30 MCHC 32.6 RDW 13.1 Plt Count 235 D MPV 10.3 Neut % (Auto) 68.8 Lymph % (Auto) 14.3 L [place] % (Auto) 10.6 Eos % (Auto) 5.1 Baso % (Auto) 0.2 Neut # (Auto) 8.9 H Lymph # (Auto) 1.8 [place] # (Auto) 1.4 H Eos # (Auto) 0.7 Baso # (Auto) 0.0 Total Counted 100 Immature Gran % 1.0 Nucleated RBC % 0.0 Immature Gran # 0.13 Segmented Neutrophils 74 Lymphocytes 19 L Monocytes 5 Eosinophils 2 Nucleated RBCs # 0.00 Platelet Estimate Normal Hypochromasia 1+ Ovalocytes Slight Sodium 145 Potassium 4.5 Chloride 109 H Carbon Dioxide 26 Anion Gap 14.5 BUN 16 Creatinine 0.90 GFR Calculation 128 BUN/Creatinine Ratio 17.00 Glucose 100 POC Glucose 114 H Calculated Osmolality 288.7 Calcium 8.1 L Magnesium 2.1 Total Bilirubin 0.80 Direct Bilirubin 0.1 Indirect Bilirubin 0.7 AST 29 ALT 71 H Alkaline Phosphatase 75 Total Creatine Kinase 34 L CK-MB (CK-2) 1.4 Troponin I 4.240 H D Total Protein 5.2 L Albumin 2.8 L Globulin 2.4 Albumin/Globulin Ratio 1.1 03/15/16 07:25 WBC RBC Hgb Hct MCV MCH MCHC RDW Plt Count MPV Neut % (Auto) Lymph % (Auto) [place] % (Auto) Eos % (Auto) Baso % (Auto) Neut # (Auto) Lymph # (Auto) [place] # (Auto) Eos # (Auto) Baso # (Auto) Total Counted Immature Gran % Nucleated RBC % Immature Gran # Segmented Neutrophils Lymphocytes Monocytes Eosinophils Nucleated RBCs # Platelet Estimate Hypochromasia Ovalocytes Sodium Potassium Chloride Carbon Dioxide Anion Gap BUN Creatinine GFR Calculation BUN/Creatinine Ratio Glucose POC Glucose 113 H Calculated Osmolality Calcium Magnesium Total Bilirubin Direct Bilirubin Indirect Bilirubin AST ALT Alkaline Phosphatase Total Creatine Kinase CK-MB (CK-2) Troponin I Total Protein Albumin Globulin Albumin/Globulin Ratio - Impressions Impressions: Telemetry with atrial flutter rapid ventricular response this time. Reviewing his telemetry strips though his heart rates have been better. So this increase may be related to his activity the room this morning. - Diagnostic Findings Procedure: Chest x-ray: image reviewed by me - EKG EKG results: interpreted by me EKG shows: atrial fibrillation (transient atrial flutter; pulse rate 140's) Quality Measures - VTE Contraindication to Pharmacological VTE Prophylaxis: High Risk of Bleeding Specialty Discharge - Follow Up or Referrals Follow up with: Chapo Centeno MD [Physician] - 1 Week (Follow-up with me in one to 2 weeks with EKG FLP CMP CBC and hemoglobin A1c) - Discharge Medications No Action Metoprolol Succinate Xl [Toprol Xl] 25 mg PO BEDTIME Aspirin [Ecotrin] 81 mg PO BEDTIME Rosuvastatin Calcium [Crestor] 10 mg PO BEDTIME Fosinopril Sodium 10 mg PO BEDTIME B Complex with Vitamin C [Vitamin B-Complex with Vit C] 1 each PO BEDTIME Co Q 10 50 mg PO BEDTIME Alfredo Hilliard John Timothy, MD, personally performed the services described in this documentation, ascribed by Kyra Russell RN in my presence, and it is both accurate and complete [id number] .
[2016-03-15] MEDS: ASPIRIN EC 325 MG TABLET PO SCH (08:50)
[2016-03-15] MEDS: APIXABAN 2.5 MG TABLET PO SCH ×2 (08:50→21:35)
[2016-03-15] MEDS: DILTIAZEM CD 180 MG CAPSULE PO SCH ×2 (08:50→21:36)
[2016-03-15] MEDS: FERROUS SULFATE 325 MG TABLET PO SCH (08:50)
[2016-03-15] MEDS: PANTOPRAZOLE 40 MG TABLET PO SCH (08:50)
[2016-03-15] MEDS: DOCUSATE SODIUM 100 MG CAPSULE PO SCH (08:50)
[2016-03-15] MEDS: METOPROLOL TARTRATE 50 MG TABLET PO SCH ×2 (08:58→21:35)
--- NOTE | 2016-03-15 09:21 | Cardiothoracic Progress Note ---
Cardiothoracic Subjective Interval history: Patient is stable and doing well except for continued a flutter. He is on amiodarone and Cardizem intravenously but still remains in flutter. Dr. Fuentes's considering cardioversion tomorrow if he persists and I agree completely. Otherwise he seems to be doing well and we will continue to increase his activity level as tolerated. Exam (Progress Note) - Constitutional Vitals: Period Temp Pulse Resp BP Sys/Grimes Pulse Ox Last 24 Hr 97.5 F-98.9 F 82-105 18-20 92-137/54-64 91-96 Result/EKG - Labs CBC & BMP: 03/15/16 03:57 03/15/16 03:57 Labs: Laboratory Results - last 24 hr 03/14/16 03/15/16 03/15/16 11:58 03:57 03:57 WBC 12.9 RBC 3.09 L Hgb 9.2 L Hct 28.2 L MCV 91.3 MCH 30 MCHC 32.6 RDW 13.1 Plt Count 235 D MPV 10.3 Neut % (Auto) 68.8 Lymph % (Auto) 14.3 L [place] % (Auto) 10.6 Eos % (Auto) 5.1 Baso % (Auto) 0.2 Neut # (Auto) 8.9 H Lymph # (Auto) 1.8 [place] # (Auto) 1.4 H Eos # (Auto) 0.7 Baso # (Auto) 0.0 Total Counted 100 Immature Gran % 1.0 Nucleated RBC % 0.0 Immature Gran # 0.13 Segmented Neutrophils 74 Lymphocytes 19 L Monocytes 5 Eosinophils 2 Nucleated RBCs # 0.00 Platelet Estimate Normal Hypochromasia 1+ Ovalocytes Slight Sodium 145 Potassium 4.5 Chloride 109 H Carbon Dioxide 26 Anion Gap 14.5 BUN 16 Creatinine 0.90 GFR Calculation 128 BUN/Creatinine Ratio 17.00 Glucose 100 POC Glucose 114 H Calculated Osmolality 288.7 Calcium 8.1 L Magnesium 2.1 Total Bilirubin 0.80 Direct Bilirubin 0.1 Indirect Bilirubin 0.7 AST 29 ALT 71 H Alkaline Phosphatase 75 Total Creatine Kinase 34 L CK-MB (CK-2) 1.4 Troponin I 4.240 H D Total Protein 5.2 L Albumin 2.8 L Globulin 2.4 Albumin/Globulin Ratio 1.1 03/15/16 07:25 WBC RBC Hgb Hct MCV MCH MCHC RDW Plt Count MPV Neut % (Auto) Lymph % (Auto) [place] % (Auto) Eos % (Auto) Baso % (Auto) Neut # (Auto) Lymph # (Auto) [place] # (Auto) Eos # (Auto) Baso # (Auto) Total Counted Immature Gran % Nucleated RBC % Immature Gran # Segmented Neutrophils Lymphocytes Monocytes Eosinophils Nucleated RBCs # Platelet Estimate Hypochromasia Ovalocytes Sodium Potassium Chloride Carbon Dioxide Anion Gap BUN Creatinine GFR Calculation BUN/Creatinine Ratio Glucose POC Glucose 113 H Calculated Osmolality Calcium Magnesium Total Bilirubin Direct Bilirubin Indirect Bilirubin AST ALT Alkaline Phosphatase Total Creatine Kinase CK-MB (CK-2) Troponin I Total Protein Albumin Globulin Albumin/Globulin Ratio Quality Measures - VTE Contraindication to Pharmacological VTE Prophylaxis: High Risk of Bleeding Specialty Discharge - Follow Up or Referrals Follow up with: Chapo Centeno MD [Physician] - 1 Week (Follow-up with me in one to 2 weeks with EKG FLP CMP CBC and hemoglobin A1c) - Discharge Medications No Action Metoprolol Succinate Xl [Toprol Xl] 25 mg PO BEDTIME Aspirin [Ecotrin] 81 mg PO BEDTIME Rosuvastatin Calcium [Crestor] 10 mg PO BEDTIME Fosinopril Sodium 10 mg PO BEDTIME B Complex with Vitamin C [Vitamin B-Complex with Vit C] 1 each PO BEDTIME Co Q 10 50 mg PO BEDTIME
[2016-03-15] MEDS: oxyCODONE/ACETAMINOPHEN 5-325 MG TABLET PO PRN ×2 (10:16→21:36)
[2016-03-15] MEDS: PHENAZOPYRIDINE 95 MG TABLET PO SCH (16:06)
[2016-03-15 16:56] LABS: Apearance,Urine CLEAR (Clear); Bilirubin,Urine Negative (Negative); Blood, Urine Negative (Negative); Glucose,Urine (UA) Negative (Negative); Hyaline Casts,Urine 4 /LPF (0-3); Ketones,Urine Negative (Negative); Mucus,Urine Occasional /LPF (Occasional); Nitrite,Urine Negative (Negative); Protein,Urine Negative; RBC,Urine <1 /HPF (0-4); Urine Color Yellow (Yellow); Urine Specific Gravity 1.009 (1.001-1.035); Urine Urobilinogen < 2.0 EU/DL (0.2-1.0); WBC,Urine <1 /HPF (0-6)
[2016-03-15] MEDS: AMIODARONE 200 MG TABLET PO SCH (21:35)
[2016-03-15] MEDS: ROSUVASTATIN 10 MG TABLET PO SCH (21:36)
[2016-03-15] MEDS: COENZYME Q10 100 MG CAPSULE PO SCH (21:42)
[2016-03-15] MEDS: MULTIVITAMIN (BEROCCA) TABLET PO SCH (21:42)
[2016-03-15] MEDS: FOSINOPRIL 10 MG TABLET PO SCH (21:43)
[2016-03-16] MEDS: oxyCODONE/ACETAMINOPHEN 5-325 MG TABLET PO PRN ×2 (01:01→21:54)
[2016-03-16 05:30] LABS: Albumin 2.9 G/DL (3.4-5.0); Calcium 7.8 MG/DL (8.5-10.1); Magnesium 2.3 MG/DL (1.8-2.4); Osmolality,Calculated 279.4 MOS/KG (273-304); Phosphorous 3.2 MG/DL (2.5-4.9); Potassium 4.5 MMOL/L (3.5-5.1)
--- NOTE | 2016-03-16 06:28 | Cardiothoracic Progress Note ---
Cardiothoracic Subjective Interval history: Patient looks and feels okay. He is having some tenderness in his left leg around the site of his saphenous vein incision. Otherwise his vital signs are stable although he remains in atrial flutter. He is breathing comfortably. Dr. Fuentes is tentatively planning cardioversion for later this morning. Exam (Progress Note) - Constitutional Vitals: Period Temp Pulse Resp BP Sys/Grimes Pulse Ox Last 24 Hr 97.6 F-99.0 F 60-103 18-20 98-130/49-66 90-98 Result/EKG - Labs CBC & BMP: 03/15/16 03:57 03/16/16 Unknown Labs: Laboratory Results - last 24 hr 03/15/16 03/15/16 03/15/16 07:25 11:23 16:00 Sodium Potassium Chloride Carbon Dioxide Anion Gap BUN Creatinine GFR Calculation BUN/Creatinine Ratio Glucose POC Glucose 113 H 122 H 123 H Calculated Osmolality Calcium Phosphorus Magnesium Albumin Urine Color Urine Appearance Urine pH Ur Specific [place] Urine Protein Urine Glucose (UA) Urine Ketones Urine Blood Urine Nitrate Urine Bilirubin Urine Urobilinogen Urine Leukocytes Urine RBC Urine WBC Hyaline Casts Urine Mucus Ur Culture Indicated? 03/15/16 03/15/16 03/16/16 16:36 19:57 Unknown Sodium 140 Potassium 4.5 Chloride 103 Carbon Dioxide 29 Anion Gap 12.5 BUN 18 Creatinine 1.00 GFR Calculation 113 BUN/Creatinine Ratio 18.00 Glucose 85 POC Glucose 132 H Calculated Osmolality 279.4 Calcium 7.8 L Phosphorus 3.2 Magnesium 2.3 Albumin 2.9 L Urine Color Yellow Urine Appearance Clear Urine pH 6.0 Ur Specific [place] 1.009 Urine Protein Negative Urine Glucose (UA) Negative Urine Ketones Negative Urine Blood Negative Urine Nitrate Negative Urine Bilirubin Negative Urine Urobilinogen < 2.0 H Urine Leukocytes Negative Urine RBC <1 Urine WBC <1 Hyaline Casts 4 Urine Mucus Occasional Ur Culture Indicated? Not indicated Quality Measures - VTE Contraindication to Pharmacological VTE Prophylaxis: High Risk of Bleeding Specialty Discharge - Follow Up or Referrals Follow up with: Chapo Centeno MD [Physician] - 1 Week (Follow-up with me in one to 2 weeks with EKG FLP CMP CBC and hemoglobin A1c) - Discharge Medications No Action Metoprolol Succinate Xl [Toprol Xl] 25 mg PO BEDTIME Aspirin [Ecotrin] 81 mg PO BEDTIME Rosuvastatin Calcium [Crestor] 10 mg PO BEDTIME Fosinopril Sodium 10 mg PO BEDTIME B Complex with Vitamin C [Vitamin B-Complex with Vit C] 1 each PO BEDTIME Co Q 10 50 mg PO BEDTIME
[2016-03-16] MEDS: AMIODARONE INJ 450 MG in DEXTROSE 5% 241 ML IV SCH ×2 (07:10→23:43)
[2016-03-16] MEDS: INSULIN REGULAR 100 UNIT/ML SUBCUT SCH ×4 (07:32→21:55)
--- NOTE | 2016-03-16 08:10 | Cardiology Progress Note ---
Assessment and Plan (1) Atrial fibrillation Status: Acute Assessment and plan: This is actually flutter. His rates are controlled. He is for cardioversion today. Current Visit: Yes (2) Left main coronary artery disease Status: Acute Assessment and plan: He is post coronary bypass surgery. He is doing well in regard to the surgery. Current Visit: Yes (3) Dyslipidemia Status: Chronic Assessment and plan: He is on lipid management with statin drugs. Current Visit: Yes (4) Hypertension Status: Chronic Assessment and plan: His blood pressures are stable continue present therapy. Current Visit: Yes (5) Status post coronary artery bypass grafting Status: Acute Assessment and plan: From surgical standpoint is doing well. He does have a little bit of edema of his left lower leg. He may benefit from some Lasix. Current Visit: Yes Cardiology - PN: Subj Interval history: Patient doing well this morning. His only biggest complaint is that of left lower leg burning stinging. He is having some edema issues. He continues to be in atrial flutter but with controlled ventricular rates. He has a good appetite. He is not having any shortness of breath. He had a pretty unremarkable night other than his left leg. His vital signs been fairly stable and unremarkable. He hemodynamic is been stable. Again discussed with he and his , for cardioversion for this morning. They voice understanding agree to proceed. Exam (Progress Note) - Constitutional Vitals: Period Temp Pulse Resp BP Sys/Grimes Pulse Ox Last 24 Hr 97.6 F-99.0 F 60-103 18-20 98-130/49-66 90-98 Exam: General appearance: no acute distress, over weight - Head Head exam: Present: normal inspection, normocephalic - Eye Eye exam: Absent: conjunctival injection, periorbital swelling, scleral icterus Pupils: Present: JANETH - ENT ENT exam: Present: normal exam, normal external ear exam - Neck Neck exam: Present: normal inspection. Absent: tenderness - Respiratory Respiratory exam: Present: clear to auscultation bilaterally. Absent: accessory muscle use, rales, rhonchi, stridor, wheezes - Cardiovascular Cardiovascular exam: Present: irregular rhythm, with normal rates systolic murmur (along the left sternal border). Absent: carotid bruit, diastolic murmur - GI/Abdominal GI/Abdominal exam: Present: normal bowel sounds, soft. Absent: distended, mass , tenderness - Extremities Exam Extremities exam: Present: edema (1-2+ bilaterally), other (medial lower extremity incisions well approximated, no redness, but has some mild edema. moderate amount bruising various stages of healing around sites). Absent: calf tenderness - Neurological Exam Neurological exam: Present: alert, oriented X3, other (grossly intact, no resting or essential tremor) - Psychiatric Psychiatric exam: Present: normal affect, normal mood - Skin Skin exam: Present: normal color, warm, dry, other (midline sternal incision well approximated, no bleeding, redness, or swelling. moderate amount bruising around incision site, healing well. ) Result/EKG - Labs CBC & BMP: 03/15/16 03:57 03/16/16 Unknown Lab Results: I have reviewed the past 24 hour labs Labs: Laboratory Results - last 24 hr 03/15/16 03/15/16 03/15/16 11:23 16:00 16:36 Sodium Potassium Chloride Carbon Dioxide Anion Gap BUN Creatinine GFR Calculation BUN/Creatinine Ratio Glucose POC Glucose 122 H 123 H Calculated Osmolality Calcium Phosphorus Magnesium Albumin Urine Color Yellow Urine Appearance Clear Urine pH 6.0 Ur Specific [place] 1.009 Urine Protein Negative Urine Glucose (UA) Negative Urine Ketones Negative Urine Blood Negative Urine Nitrate Negative Urine Bilirubin Negative Urine Urobilinogen < 2.0 H Urine Leukocytes Negative Urine RBC <1 Urine WBC <1 Hyaline Casts 4 Urine Mucus Occasional Ur Culture Indicated? Not indicated 03/15/16 03/16/16 19:57 Unknown Sodium 140 Potassium 4.5 Chloride 103 Carbon Dioxide 29 Anion Gap 12.5 BUN 18 Creatinine 1.00 GFR Calculation 113 BUN/Creatinine Ratio 18.00 Glucose 85 POC Glucose 132 H Calculated Osmolality 279.4 Calcium 7.8 L Phosphorus 3.2 Magnesium 2.3 Albumin 2.9 L Urine Color Urine Appearance Urine pH Ur Specific [place] Urine Protein Urine Glucose (UA) Urine Ketones Urine Blood Urine Nitrate Urine Bilirubin Urine Urobilinogen Urine Leukocytes Urine RBC Urine WBC Hyaline Casts Urine Mucus Ur Culture Indicated? - Impressions Impressions: Telemetry with atrial flutter with management ventricular response as well as 100 bpm. Quality Measures - VTE Contraindication to Pharmacological VTE Prophylaxis: High Risk of Bleeding Specialty Discharge - Follow Up or Referrals Follow up with: Chapo Centeno MD [Physician] - 1 Week (Follow-up with me in one to 2 weeks with EKG FLP CMP CBC and hemoglobin A1c) - Discharge Medications No Action Metoprolol Succinate Xl [Toprol Xl] 25 mg PO BEDTIME Aspirin [Ecotrin] 81 mg PO BEDTIME Rosuvastatin Calcium [Crestor] 10 mg PO BEDTIME Fosinopril Sodium 10 mg PO BEDTIME B Complex with Vitamin C [Vitamin B-Complex with Vit C] 1 each PO BEDTIME Co Q 10 50 mg PO BEDTIME
--- NOTE | 2016-03-16 08:15 | History and Physical Update ---
Sedation H&P Update - History and Physical H&P was reviewed, the patient examined and there: are no changes in the patients condition since last H&P was completed. - Dictation Physical: refer to scanned H&P, refer to H&P completed by admitting physician - Physical Exam Mental Status: alert and oriented Heart: other (slightly irregular rhythm with atrial flutter.) Lung: clear to auscultation Abdomen: within normal limits Vitals: within normal limits History and Physical Changes: None - Sedation Plan for Sedation: moderate Patient Consent: Risks and benefits were discussed with patient,including infection, ASA Class: III Airway Assessment: Class III: Soft palate, base of uvula visible
[2016-03-16] MEDS ORDERED: MIDAZOLAM 10 MG/2 ML VIAL ONE (09:14)
[2016-03-16] MEDS ORDERED: MIDAZOLAM 2 MG/2 ML VIAL IV ONE (09:15)
[2016-03-16] MEDS ORDERED: HYDROmorphone 2 MG/1 ML VIAL IV ONE (09:15)
[2016-03-16] MEDS ORDERED: HYDROmorphone 2 MG/1 ML VIAL ONE (09:16)
--- NOTE | 2016-03-16 09:38 | Event Note ---
Procedure: Synchronized electrocardioversion. Indications: Atrial flutter Results: Converted to normal sinus rhythm Sedation/anesthesia: The light 2 mg IVP, Versed 4 mg IVP Cardioversion shocks: One shock at 200 J synchronized. Complications: None immediate Description of procedure: After informed consent the patient was connected to the monitor equipment for cardioversion. Sedation obtained using the above medications. Once the patient was appropriately sedated they underwent electrocardioversion with 1 electrocardioversion attempt synchronized at 200 joules. Patient converted to normal sinus rhythm. Patient had no immediate complication or dysrhythmias.
--- NOTE | 2016-03-16 10:36 | EKG Report ---
Stationary ECG Study [facility] Test Date: 03/16/2016 9:37:49 AM Pat Name: CHAN HASSAN Department: Room: 262 Gender: M Private Watchman: : 1960 Requested by: Jerman Coepland Order Number: [id number] Reading MD: LYNETTE ELDER Intervals [place] Rate: 79 P: -13 AK: 165 QRS: 13 QRSD: 101 T: 71 QT: 397 QTc: 431 Interpretive Statements SINUS RHYTHM NONSPECIFIC T WAVE ABNORMALITY Electronically Signed On 03-16-16 12:54:56 SENIOR WEB DEVELOPER by LYNETTE ELDER [email or web address]
[2016-03-16] MEDS: PHENAZOPYRIDINE 95 MG TABLET PO SCH ×2 (10:49→16:19)
[2016-03-16] MEDS: PANTOPRAZOLE 40 MG TABLET PO SCH (10:49)
[2016-03-16] MEDS: AMIODARONE 200 MG TABLET PO SCH ×2 (10:49→21:55)
[2016-03-16] MEDS: FERROUS SULFATE 325 MG TABLET PO SCH (10:49)
[2016-03-16] MEDS: DOCUSATE SODIUM 100 MG CAPSULE PO SCH (10:49)
[2016-03-16] MEDS: APIXABAN 2.5 MG TABLET PO SCH ×2 (10:49→21:55)
[2016-03-16] MEDS: ASPIRIN EC 325 MG TABLET PO SCH (10:49)
[2016-03-16] MEDS: FUROSEMIDE 40 MG/4 ML VIAL IV SCH (10:53)
[2016-03-16] MEDS: cephALEXin 500 MG CAPSULE PO SCH ×2 (12:24→21:54)
[2016-03-16] MEDS: SODIUM CHLORIDE 0.9% 1,000 ML IV SCH (12:25)
[2016-03-16] MEDS: METOPROLOL TARTRATE 50 MG TABLET PO SCH ×2 (12:25→21:55)
[2016-03-16] MEDS: MULTIVITAMIN (BEROCCA) TABLET PO SCH (21:54)
[2016-03-16] MEDS: FOSINOPRIL 10 MG TABLET PO SCH (21:54)
[2016-03-16] MEDS: COENZYME Q10 100 MG CAPSULE PO SCH (21:54)
[2016-03-16] MEDS: ROSUVASTATIN 10 MG TABLET PO SCH (21:55)
[2016-03-17 07:35] VITALS: BP 117/64
[2016-03-17] MEDS: INSULIN REGULAR 100 UNIT/ML SUBCUT SCH (08:05)
[2016-03-17] MEDS: APIXABAN 2.5 MG TABLET PO SCH (08:35)
[2016-03-17] MEDS: ASPIRIN EC 325 MG TABLET PO SCH (08:35)
[2016-03-17] MEDS: PHENAZOPYRIDINE 95 MG TABLET PO SCH (08:35)
[2016-03-17] MEDS: AMIODARONE 200 MG TABLET PO SCH (08:35)
[2016-03-17] MEDS: cephALEXin 500 MG CAPSULE PO SCH (08:35)
[2016-03-17] MEDS: METOPROLOL TARTRATE 50 MG TABLET PO SCH (08:35)
[2016-03-17] MEDS: DOCUSATE SODIUM 100 MG CAPSULE PO SCH (08:35)
[2016-03-17] MEDS: FERROUS SULFATE 325 MG TABLET PO SCH (08:35)
[2016-03-17] MEDS: PANTOPRAZOLE 40 MG TABLET PO SCH (08:35)
[2016-03-17] MEDS: FUROSEMIDE 40 MG/4 ML VIAL IV SCH (08:37)
[2016-03-17] MEDS ORDERED: AMIODARONE 200 MG TABLET PO SCH (09:00)
[2016-03-17] MEDS: SODIUM CHLORIDE 0.9% 1,000 ML IV SCH (09:23)
--- NOTE | 2016-03-17 09:23 | Discharge Summary ---
Hospital Course - Hospital Course Hospital Course: Chief complaint: Increasing shortness of breath with exertion as well as substernal chest pressure. History of present illness: Patient is a 55-year-old man who began having shortness of breath with exertion beyond what he had previously experienced which is progressed over the past several months. It is also been experiencing some chest discomfort. He did have a previous cardiac instituted and about 10 years ago which resulted in a stent being placed in his anterior descending coronary artery. Patient underwent cardiac catheterization demonstrating total occlusion of the anterior descending coronary artery and the stent. He also had high-grade occlusions of the diagonal circumflex and right coronary artery. Patient was advised to have bypass surgery and he was admitted for that purpose. Past medical history review of systems and social history and family history are documented in his admission note. Hospital course: Patient was taken to surgery and four-vessel bypass grafting was performed with an internal mammary graft to the anterior descending and saphenous vein grafts to the diagonal circumflex marginal and right coronary vessels. His postoperative course was essentially uncomplicated except for the persistence of atrial fibrillation which eventually with required cardioversion for resolution. He was in sinus rhythm at the time of discharge and was sent home on amiodarone and calcium channel es in the hopes of controlling his rhythm. Otherwise she was advised to pursue regular post-bypass rehabilitation activities. He is to return for follow-up in 1 month. Specialty Discharge - Follow Up or Referrals Follow up with: Chapo Centeno MD [Physician] - 1 Week (Follow-up with me in one to 2 weeks with EKG FLP CMP CBC and hemoglobin A1c) Lowell Lopez MD [Physician] - 1 Month - Discharge Medications No Action Metoprolol Succinate Xl [Toprol Xl] 25 mg PO BEDTIME Aspirin [Ecotrin] 81 mg PO BEDTIME Rosuvastatin Calcium [Crestor] 10 mg PO BEDTIME Fosinopril Sodium 10 mg PO BEDTIME B Complex with Vitamin C [Vitamin B-Complex with Vit C] 1 each PO BEDTIME Co Q 10 50 mg PO BEDTIME Discharge Plan - Discharge Data Condition at Discharge: Stable Discharge Diet: advance to your usual diet Activity: resume usual activities as tolerated Hygiene: no restrictions Weight Bearing at Discharge: full weight bearing Driving: not until seen by doctor - Discharge Medications New Amiodarone Tab [Cordarone Tab] 400 mg PO DAILY #30 tablet Docusate Sodium Cap [Colace Cap] 100 mg PO DAILY #30 capsule Ferrous Sulfate Tab [Feosol Original Tab] 325 mg PO DAILY #30 tablet Multivitamin (Berocca) [Berocca] 1 tablet PO BEDTIME tablet Rosuvastatin [Crestor] 10 mg PO BEDTIME tablet cephALEXin [Keflex] 500 mg PO Q12HR #20 capsule Continue Metoprolol Succinate Xl [Toprol Xl] 25 mg PO BEDTIME Aspirin [Ecotrin] 81 mg PO BEDTIME Rosuvastatin Calcium [Crestor] 10 mg PO BEDTIME Fosinopril Sodium 10 mg PO BEDTIME B Complex with Vitamin C [Vitamin B-Complex with Vit C] 1 each PO BEDTIME Co Q 10 50 mg PO BEDTIME - Follow Up or Referral Follow Up: Chapo Centeno MD [Physician] - 1 Week (Follow-up with me in one to 2 weeks with EKG FLP CMP CBC and hemoglobin A1c) - Forms/Instructions Instructions: Heart Healthy Diet (GEN), Coronary Artery Bypass Graft, Router Machine Operator (GEN), Sternal Precautions, Router Machine Operator (GEN) Exam - Constitutional Vitals: Period Temp Pulse Resp BP Sys/Grimes Pulse Ox Last 24 Hr 97.4 F-99.1 F 73-89 16-20 104-117/38-72 90-98 Discharge Results Procedures and tests throughout hospitalization: Pending Orders 03/08/16 09:22 Fresh Frozen Plasma Routine Red Blood Cells Leuko Red Routine Single Donor Platelets Routine Type and Screen Routine Labs on day of discharge: Labs from last 24 hours 03/17/16 03/16/16 03/16/16 07:15 20:59 15:07 POC Glucose 100 118 H 131 H 03/16/16 11:27 POC Glucose 118 H DS: Provider Date of admission: 03/08/16 08:44 Primary care physician: Robbi Toro MD Attending physician on admission: Lowell Lopez MD Consults: 03/10/16 06:17 Consult to Cardiac Rehabilitation [CONS] Routine Reason for Cardiac Rehabilitation: Other Consult Comment: Post CABG/heart surgery Consult to [facility], Educator [CONS] Routine Reason for Pot Filler: Diabetes Education Initial Insulin Education Consult Comment: insulin education Consult to Dietitian [CONS] Routine Reason for Dietitian: Dietary Consult Consult Comment: Cardiac, low salt, low cholesterol diet Consult to Physical Therapy [CONS] Routine Reason for Physical Therapy: Other Consult Comment: CV Rehab Discharging clinician: Lowell Lopez MD Expected date of discharge: 03/17/16
--- NOTE | 2016-03-17 11:26 | Cardiology Progress Note ---
Drew Hilliard Vanessa, RN, am scribing for, and in the presence of, Jerman Fuentes MD 11:25. Assessment and Plan - Time spent with patient Time spent with patient: Less than 30 minutes (1) Atrial fibrillation Status: Resolved Assessment and plan: status post elective cardioversion 03/16. succesfl and remains in sinus rhythm without recurrence of atrial fib or flutter. Continue his amiodarone. Current Visit: Yes (2) Status post coronary artery bypass grafting Status: Acute Assessment and plan: s/p CABG x 4 with SHUKLA to LAD, saphenous vein grafts to diagonal, circ marginal , and right coronary artery on 03/09. He is stable post surgery. Current Visit: Yes (3) Left main coronary artery disease Status: Acute Assessment and plan: s/p coronary artery bypass grafting. continues to improve in surgical regard. Current Visit: Yes (4) Dyslipidemia Status: Chronic Assessment and plan: continue current lipid lowering agent Current Visit: Yes (5) Hypertension Status: Chronic Assessment and plan: Blood pressure stable present regimen will continue this. Current Visit: Yes Cardiology - PN: Subj Interval history: Patient personally interviewed and examined by me and chart reviewed. Awake and alert. Ambulating without distress or complaint. present at bedside. Post successful cardioversion on 03/16, he has remained in sinus rhythm without recurrence of atrial fibrillation, atrial flutter, or other dysrhythmia. Pulse rate 80's, BP 117/64. No CP, SOB, palpitations, dizziness, or other complaint. States he has noticed a significant increase in energy and feeling better since cardioversion yesterday morning, and has ambulated quite a lot to nurses station, up and down hallway, etc. Amiodarone dosage decreased to 400 mg PO daily. He has been cleared for discharge today by Dr. Lopez and will be going home later today. He will follow up with Dr. Keenan in clinic in 1 week. He remains in sinus rhythm with continue his amiodarone 400 mg daily at discharge. Exam (Progress Note) - Constitutional Vitals: Period Temp Pulse Resp BP Sys/Grimes Pulse Ox Last 24 Hr 97.4 F-99.1 F 73-89 16-20 104-117/38-72 90-98 Exam: Exam: General appearance: no acute distress, over weight - Head Head exam: Present: normal inspection, normocephalic - Eye Eye exam: Absent: conjunctival injection, periorbital swelling, scleral icterus Pupils: Present: JANETH - ENT ENT exam: Present: normal exam, normal external ear exam - Neck Neck exam: Present: normal inspection. Absent: tenderness - Respiratory Respiratory exam: Present: clear to auscultation bilaterally. Absent: accessory muscle use, rales, rhonchi, stridor, wheezes - Cardiovascular Cardiovascular exam: Present: regular rhythm, with normal rates systolic murmur (along the left sternal border). Absent: carotid bruit, diastolic murmur - GI/Abdominal GI/Abdominal exam: Present: normal bowel sounds, soft. Absent: distended, mass , tenderness - Extremities Exam Extremities exam: Present: edema (1-2+ bilaterally), other (medial lower extremity incisions well approximated, no redness, but has some mild edema. moderate amount bruising various stages of healing around sites). Absent: calf tenderness - Neurological Exam Neurological exam: Present: alert, oriented X3, other (grossly intact, no resting or essential tremor) - Psychiatric Psychiatric exam: Present: normal affect, normal mood - Skin Skin exam: Present: normal color, warm, dry, other (midline sternal incision well approximated, no bleeding, redness, or swelling. moderate amount bruising around incision site, healing well. ) Result/EKG - Labs CBC & BMP: 03/15/16 03:57 03/16/16 Unknown Lab Results: I have reviewed the past 24 hour labs Labs: Laboratory Results - last 24 hr 03/16/16 03/16/16 03/16/16 11:27 15:07 20:59 POC Glucose 118 H 131 H 118 H 03/17/16 07:15 POC Glucose 100 - Impressions Impressions: Telemetry was normal sinus rhythm. - EKG EKG results: interpreted by me EKG shows: sinus rhythm (pulse rate 80's) Quality Measures - VTE Contraindication to Pharmacological VTE Prophylaxis: High Risk of Bleeding Specialty Discharge - Follow Up or Referrals Follow up with: Lowell Lopez MD [Physician] - 04/12/16 10:00 am Chapo Keenan MD [Physician] - 1 Week (Follow-up with me in one to 2 weeks with EKG FLP CMP CBC and hemoglobin A1c 03/21/16 AT 10:00 AT [facility] FOR LABS(CBC,CMP,FLP,AND HBA1C) 03/24/[address] [facility] [address] KEENAN APPT.) - Discharge Medications New Amiodarone Tab [Cordarone Tab] 400 mg PO DAILY #30 tablet Docusate Sodium Cap [Colace Cap] 100 mg PO DAILY #30 capsule Ferrous Sulfate Tab [Feosol Original Tab] 325 mg PO DAILY #30 tablet Multivitamin (Berocca) [Berocca] 1 tablet PO BEDTIME tablet Rosuvastatin [Crestor] 10 mg PO BEDTIME tablet cephALEXin [Keflex] 500 mg PO Q12HR #20 capsule Continue Metoprolol Succinate Xl [Toprol Xl] 25 mg PO BEDTIME Aspirin [Ecotrin] 81 mg PO BEDTIME Rosuvastatin Calcium [Crestor] 10 mg PO BEDTIME Fosinopril Sodium 10 mg PO BEDTIME B Complex with Vitamin C [Vitamin B-Complex with Vit C] 1 each PO BEDTIME Co Q 10 50 mg PO BEDTIME Alfredo Hilliard John Timothy, MD, personally performed the services described in this documentation, ascribed by Kyra Russell RN in my presence, and it is both accurate and complete [id number] .
== END 2016-03-17 13:00 | disposition home or self-care (01) | DRG 236 ==
LOC: N.TELES 08:44 → N.CVR 03-09 11:49 → N.TELES 03-10 09:25

== ENCOUNTER 2018-01-08 11:09 | Inpatient (IN) ==
[2018-01-08 12:50] LABS: Basophils # 0.1 10*3/uL (0.0-0.2); Basophils % 0.7 % (0.0-0.8); Eosinophils # 0.5 10*3/uL (0.0-0.87); Eosinophils % 3.8 % (0.00-10.9); Hematocrit 41.1 VOL% (42.0-52.0); Hemoglobin 13.2 GM/DL (14.0-18.0); Immature Granulocytes % 1.4 %; Immature Granulocytes Absolute 0.17 #; Lymphocytes % 8.4 % (21.2-54.2); Mean Corpuscular HGB Conc 32.1 GM/DL (32-36); Mean Corpuscular Hemoglobin 30 PG (27-34); Mean Corpuscular Volume 92.4 FL (87-102); Mean Platelet Volume 9.9 FL (9.6-12.0); Neutrophils # 9.5 10*3/uL (1.4-7.4); Neutrophils % 77.7 % (38.7-73.9); Platelet Count 224 T/CUMM (130-400); Red Blood Count 4.45 MC/CUMM (3.8-5.5); Red Cell Distribution Width 11.9 % (9.3-17.3); White Blood Count 12.2 T/CUMM (4-12)
[2018-01-08 12:56] LABS: PT Patient Result 10.7 SECS; Partial Thromboplastin Time 27.3 SECS (0-40)
[2018-01-08 13:12] LABS: Albumin 3.4 G/DL (3.4-5.0); Bilirubin,Total 0.6 MG/DL (0.2-1.0); Calcium 8.8 MG/DL (8.5-10.1); Osmolality,Calculated 282.3 MOS/KG (273-304); Potassium 4.2 MMOL/L (3.5-5.1); Total Protein 6.3 G/DL (6.4-8.3)
[2018-01-08 15:30] LABS: Eosinophils 2 % (0-10); Lymphocytes 11 % (20-55); Segmented Neutrophils 82 % (50-85); Total Cells Counted 100
[2018-01-08 15:33] LABS: Anisocytosis Slight
[2018-01-08 15:34] LABS: Microcytosis Slight; Ovalocytes Slight
[2018-01-08 15:35] LABS: Platelet Estimate Normal
[2018-01-08] MEDS ORDERED: SODIUM CHLORIDE 0.9% 500 ML IV STA (15:42)
[2018-01-08 17:34] LABS: Risk Ratio 3.28; VLDL CHOLESTEROL 15.4 MG/DL
[2018-01-08] MEDS: ACETAMINOPHEN 325 MG TABLET PO PRN (21:44)
[2018-01-08] MEDS: METOPROLOL SUCCINATE XL 25 MG TABLET PO SCH (21:44)
[2018-01-08] MEDS: ASPIRIN EC 81 MG TABLET PO SCH (21:45)
[2018-01-09] MEDS: guaiFENesin/CODEINE 5 ML LIQUID PO PRN ×2 (00:59→21:42)
[2018-01-09 04:59] LABS: Basophils # 0.1 10*3/uL (0.0-0.2); Basophils % 0.5 % (0.0-0.8); Eosinophils # 0.9 10*3/uL (0.0-0.87); Eosinophils % 9.4 % (0.00-10.9); Hematocrit 33.2 VOL% (42.0-52.0); Hemoglobin 10.7 GM/DL (14.0-18.0); Immature Granulocytes % 0.3 %; Immature Granulocytes Absolute 0.03 #; Lymphocytes # 1.7 10*3/uL (1.4-4.0); Lymphocytes % 17.5 % (21.2-54.2); Mean Corpuscular HGB Conc 32.2 GM/DL (32-36); Mean Corpuscular Hemoglobin 29 PG (27-34); Mean Platelet Volume 10.3 FL (9.6-12.0); Monocytes # 1.1 10*3/uL (0.11-0.8); Monocytes % 11.5 % (1.7-12.7); Neutrophils # 5.8 10*3/uL (1.4-7.4); Neutrophils % 60.8 % (38.7-73.9); Platelet Count 192 T/CUMM (130-400); Red Blood Count 3.65 MC/CUMM (3.8-5.5); Red Cell Distribution Width 11.9 % (9.3-17.3); White Blood Count 9.6 T/CUMM (4-12)
[2018-01-09 05:25] LABS: Hypochromasia 1+; Ovalocytes Slight; Platelet Estimate Adequate
[2018-01-09 05:26] LABS: Microcytosis Slight
[2018-01-09 05:31] LABS: Albumin 2.7 G/DL (3.4-5.0); Bilirubin,Total 0.7 MG/DL (0.2-1.0); Osmolality,Calculated 279.4 MOS/KG (273-304); Potassium 3.7 MMOL/L (3.5-5.1); Total Protein 5.5 G/DL (6.4-8.3)
[2018-01-09 11:24] LABS: Eosinophils,Pleural Fluid 11 %; Lymphocytes,Pleural Fluid 40 %; Monocytes,Pleural Fluid 15 %; Neutrophils,Pleural Fluid 34 %
[2018-01-09 11:25] LABS: RBC,Pleural Fluid > 100000 T/CUMM
[2018-01-09 11:54] LABS: Total Protein,Body Fluid 4.5 G/DL
[2018-01-09] MEDS ORDERED: DILTIAZEM 25 MG/5 ML VIAL IV ONE (18:12)
[2018-01-09] MEDS ORDERED: DILTIAZEM 100 MG VIAL.ADD IV ONE (18:14)
[2018-01-09] MEDS ORDERED: SODIUM CHLORIDE 0.9% 100 ML IV ONE (18:14)
[2018-01-09] MEDS: DILTIAZEM INJ 100 MG in SODIUM CHLORIDE 0.9% 100 ML IV SCH (18:30)
[2018-01-09] MEDS ORDERED: UBIDECARENONE 50 MG PO SCH (21:00)
[2018-01-09] MEDS: MULTIVITAMIN (BEROCCA) TABLET PO SCH (21:33)
[2018-01-09] MEDS: ACETAMINOPHEN 325 MG TABLET PO PRN (21:33)
[2018-01-09] MEDS: FINASTERIDE 5 MG TABLET PO SCH (21:33)
[2018-01-09] MEDS: ASPIRIN EC 81 MG TABLET PO SCH (21:34)
[2018-01-09] MEDS: ROSUVASTATIN 20 MG TABLET PO SCH (21:34)
[2018-01-09] MEDS: TAMSULOSIN 0.4 MG CAPSULE PO SCH (21:34)
[2018-01-09] MEDS: METOPROLOL SUCCINATE XL 25 MG TABLET PO SCH (21:35)
[2018-01-10] MEDS: DILTIAZEM INJ 100 MG in SODIUM CHLORIDE 0.9% 100 ML IV SCH (00:50)
[2018-01-10 04:55] LABS: Basophils # 0.1 10*3/uL (0.0-0.2); Basophils % 0.8 % (0.0-0.8); Eosinophils # 1.1 10*3/uL (0.0-0.87); Eosinophils % 11.4 % (0.00-10.9); Hematocrit 35.2 VOL% (42.0-52.0); Hemoglobin 11.6 GM/DL (14.0-18.0); Immature Granulocytes % 0.4 %; Immature Granulocytes Absolute 0.04 #; Lymphocytes # 1.6 10*3/uL (1.4-4.0); Lymphocytes % 16.5 % (21.2-54.2); Mean Corpuscular Hemoglobin 30 PG (27-34); Monocytes # 1.2 10*3/uL (0.11-0.8); Monocytes % 12.4 % (1.7-12.7); Neutrophils # 5.7 10*3/uL (1.4-7.4); Neutrophils % 58.5 % (38.7-73.9); Platelet Count 220 T/CUMM (130-400); Red Blood Count 3.87 MC/CUMM (3.8-5.5); Red Cell Distribution Width 11.9 % (9.3-17.3); White Blood Count 9.8 T/CUMM (4-12)
[2018-01-10 05:27] LABS: Eosinophils 11 % (0-10); Hypochromasia 1+; Lymphocytes 10 % (20-55); Platelet Estimate Adequate; Segmented Neutrophils 71 % (50-85); Total Cells Counted 100
[2018-01-10 05:28] LABS: Microcytosis Slight; Ovalocytes Slight
[2018-01-10 06:19] LABS: Albumin 2.7 G/DL (3.4-5.0); Bilirubin,Total 0.93 MG/DL (0.2-1.0); Osmolality,Calculated 279.4 MOS/KG (273-304); Potassium 4.1 MMOL/L (3.5-5.1)
[2018-01-10] MEDS ORDERED: FUROSEMIDE 20 MG TABLET PO SCH (09:00)
[2018-01-10] MEDS ORDERED: FUROSEMIDE 40 MG TABLET PO SCH (09:40)
[2018-01-10] MEDS ORDERED: POTASSIUM CHLORIDE RIDER 10 MEQ in PREMIX 1 EACH IV PRN (10:21)
[2018-01-10] MEDS ORDERED: MAGNESIUM SULF RIDER 2 GM in PREMIX 1 EACH IV PRN (10:21)
[2018-01-10] MEDS ORDERED: diphenhydrAMINE CAP 25 MG CAPSULE PO ONE (10:21)
[2018-01-10] MEDS ORDERED: DIAZEPAM 5 MG TABLET PO ONE (10:21)
[2018-01-10] MEDS ORDERED: SODIUM CHLORIDE 0.45% 1,000 ML IV SCH (10:30)
[2018-01-10] MEDS: ASPIRIN EC 81 MG TABLET PO SCH ×2 (11:19→22:48)
[2018-01-10] MEDS ORDERED: LIDOCAINE 1% 20 ML VIAL ONE (11:23)
[2018-01-10] MEDS ORDERED: HYDROmorphone 2 MG/1 ML VIAL ONE (11:37)
[2018-01-10] MEDS ORDERED: MIDAZOLAM 2 MG/2 ML VIAL ONE (11:38)
[2018-01-10] MEDS ORDERED: AMIODARONE INJ 150 MG in DEXTROSE 5% 100 ML IV ONE (12:22)
[2018-01-10] MEDS ORDERED: NITROGLYCERIN SL 0.4 MG TABLET SL PRN (12:25)
[2018-01-10] MEDS ORDERED: ONDANSETRON 4 MG/2 ML VIAL IV PRN (12:25)
[2018-01-10] MEDS ORDERED: HYDROmorphone 2 MG/1 ML VIAL IV PRN (12:25)
[2018-01-10] MEDS ORDERED: ACETAMINOPHEN/CODEINE 300-30 MG TABLET PO PRN (12:25)
[2018-01-10] MEDS ORDERED: AMIODARONE INJ 450 MG in DEXTROSE 5% 241 ML IV SCH (12:30)
[2018-01-10] MEDS: SPIRONOLACTONE 25 MG TABLET PO SCH (19:12)
[2018-01-10] MEDS: ROSUVASTATIN 20 MG TABLET PO SCH (20:54)
[2018-01-10] MEDS: MULTIVITAMIN (BEROCCA) TABLET PO SCH (20:54)
[2018-01-10] MEDS: METOPROLOL SUCCINATE XL 25 MG TABLET PO SCH (20:54)
[2018-01-10] MEDS: APIXABAN 5 MG TABLET PO SCH (20:54)
[2018-01-10] MEDS: TAMSULOSIN 0.4 MG CAPSULE PO SCH (20:54)
[2018-01-10] MEDS: FINASTERIDE 5 MG TABLET PO SCH (20:54)
[2018-01-10] MEDS: guaiFENesin/CODEINE 5 ML LIQUID PO PRN (20:57)
[2018-01-10] MEDS: AMIODARONE INJ 450 MG in DEXTROSE 5% 241 ML IV SCH (22:48)
[2018-01-11 04:56] LABS: Basophils # 0.1 10*3/uL (0.0-0.2); Basophils % 0.9 % (0.0-0.8); Eosinophils # 1.3 10*3/uL (0.0-0.87); Eosinophils % 14.8 % (0.00-10.9); Hematocrit 36.7 VOL% (42.0-52.0); Immature Granulocytes % 0.3 %; Immature Granulocytes Absolute 0.03 #; Lymphocytes # 1.5 10*3/uL (1.4-4.0); Lymphocytes % 16.4 % (21.2-54.2); Mean Corpuscular HGB Conc 32.7 GM/DL (32-36); Mean Corpuscular Hemoglobin 30 PG (27-34); Mean Corpuscular Volume 91.5 FL (87-102); Mean Platelet Volume 10.1 FL (9.6-12.0); Monocytes % 11.3 % (1.7-12.7); Neutrophils # 5.1 10*3/uL (1.4-7.4); Neutrophils % 56.3 % (38.7-73.9); Platelet Count 256 T/CUMM (130-400); Red Blood Count 4.01 MC/CUMM (3.8-5.5); Red Cell Distribution Width 11.9 % (9.3-17.3); White Blood Count 9.1 T/CUMM (4-12)
[2018-01-11 05:20] LABS: Band Neutrophils 1 % (0-10); Eosinophils 16 % (0-10); Hypochromasia 1+; Lymphocytes 17 % (20-55); Microcytosis Slight; Platelet Estimate Adequate; Segmented Neutrophils 55 % (50-85); Total Cells Counted 100
[2018-01-11 05:37] LABS: Calcium 8.5 MG/DL (8.5-10.1); Osmolality,Calculated 275.7 MOS/KG (273-304); Potassium 4.1 MMOL/L (3.5-5.1)
[2018-01-11 05:41] LABS: Albumin 2.8 G/DL (3.4-5.0); Bilirubin,Total 0.8 MG/DL (0.2-1.0); Calcium 8.5 MG/DL (8.5-10.1); Osmolality,Calculated 275.7 MOS/KG (273-304); Potassium 4.3 MMOL/L (3.5-5.1); Total Protein 6.4 G/DL (6.4-8.3)
[2018-01-11 05:47] LABS: Calcium 8.5 MG/DL (8.5-10.1); Free T4 (Free Thyroxine) 1.04 NG/DL (0.76-1.46); Osmolality,Calculated 273.8 MOS/KG (273-304); Potassium 4.3 MMOL/L (3.5-5.1); Thyroid Stimulating Hormone 2.35 uIU/ml (0.358-3.74)
[2018-01-11] MEDS ORDERED: ceFAZolin 1,000 MG VIAL ONE (06:05)
[2018-01-11] MEDS ORDERED: AMIODARONE 200 MG TABLET PO SCH (09:00)
[2018-01-11] MEDS: AMIODARONE INJ 450 MG in DEXTROSE 5% 241 ML IV SCH (09:33)
[2018-01-11] MEDS: SPIRONOLACTONE 25 MG TABLET PO SCH (09:34)
[2018-01-11] MEDS: APIXABAN 5 MG TABLET PO SCH (09:34)
[2018-01-11 12:18] VITALS: BP 108/53
== END 2018-01-11 14:00 | disposition home or self-care (01) | DRG 287 ==
LOC: N.ED 11:09 → N.EDINP 17:09 → N.TELES 17:33
PROVIDERS: ADMIT Internal Medicine; ATTEND Internal Medicine
PROC: IRTHORA (2018-01-09 09:43)

== ENCOUNTER 2018-01-16 11:08 | Inpatient (IN) ==
[2018-01-16] MEDS ORDERED: SODIUM CHLORIDE 0.9% 500 ML IV STA (11:48)
[2018-01-16 11:54] LABS: Basophils # 0.1 10*3/uL (0.0-0.2); Basophils % 0.7 % (0.0-0.8); Eosinophils # 1.7 10*3/uL (0.0-0.87); Eosinophils % 15.9 % (0.00-10.9); Hematocrit 36.9 VOL% (42.0-52.0); Hemoglobin 12.3 GM/DL (14.0-18.0); Immature Granulocytes % 0.6 %; Immature Granulocytes Absolute 0.06 #; Lymphocytes # 1.2 10*3/uL (1.4-4.0); Mean Corpuscular HGB Conc 33.3 GM/DL (32-36); Mean Corpuscular Hemoglobin 30 PG (27-34); Mean Corpuscular Volume 89.6 FL (87-102); Mean Platelet Volume 9.7 FL (9.6-12.0); Monocytes # 1.4 10*3/uL (0.11-0.8); Monocytes % 13.4 % (1.7-12.7); Neutrophils # 6.2 10*3/uL (1.4-7.4); Neutrophils % 58.4 % (38.7-73.9); Platelet Count 329 T/CUMM (130-400); Red Blood Count 4.12 MC/CUMM (3.8-5.5); Red Cell Distribution Width 11.7 % (9.3-17.3); White Blood Count 10.6 T/CUMM (4-12)
[2018-01-16] MEDS ORDERED: DIGOXIN 0.5 MG/2 ML AMP IV STA (11:55)
[2018-01-16] MEDS ORDERED: AMIODARONE 450 MG/9 ML VIAL IV ONE (11:59)
[2018-01-16] MEDS ORDERED: AMIODARONE INJ 450 MG in DEXTROSE 5% 241 ML IV SCH (12:00)
[2018-01-16 12:17] LABS: Eosinophils 21 % (0-10); Hypochromasia 1+; Lymphocytes 11 % (20-55); Segmented Neutrophils 57 % (50-85); Total Cells Counted 100
[2018-01-16 12:18] LABS: Microcytosis 1+; Ovalocytes Slight; Platelet Estimate Normal
[2018-01-16 12:20] LABS: Bilirubin,Total 0.6 MG/DL (0.2-1.0); Calcium 8.4 MG/DL (8.5-10.1); Osmolality,Calculated 275.7 MOS/KG (273-304); Potassium 4.1 MMOL/L (3.5-5.1); Total Protein 6.6 G/DL (6.4-8.3)
[2018-01-16] MEDS ORDERED: MORPHINE 4 MG/1 ML VIAL IV PRN (12:41)
[2018-01-16] MEDS ORDERED: DOCUSATE SODIUM 100 MG CAPSULE PO PRN ×2 (12:41→12:50)
[2018-01-16] MEDS ORDERED: MAGNESIUM SULF RIDER 2 GM in PREMIX 1 EACH IV PRN (12:41)
[2018-01-16] MEDS ORDERED: ONDANSETRON 4 MG/2 ML VIAL IV PRN (12:41)
[2018-01-16] MEDS ORDERED: MAGNESIUM SULF RIDER 4 GM in PREMIX 1 EACH IV PRN (12:41)
[2018-01-16] MEDS ORDERED: SODIUM CHLORIDE 0.45% 1,000 ML IV SCH (13:00)
[2018-01-16 14:51] LABS: Troponin I < 0.015 NG/ML (0.00-0.045)
[2018-01-16] MEDS: PANTOPRAZOLE 40 MG TABLET PO SCH (14:56)
[2018-01-16 16:22] LABS: Apearance,Urine CLEAR (Clear); Bilirubin,Urine Negative (Negative); Blood, Urine Negative (Negative); Glucose,Urine (UA) Negative (Negative); Ketones,Urine Negative (Negative); Nitrite,Urine Negative (Negative); Protein,Urine Negative; Urine Color Straw (Yellow); Urine Specific Gravity 1.005 (1.001-1.035); Urine Urobilinogen < 2.0 EU/DL (0.2-1.0); WBC,Urine <1 /HPF (0-6)
[2018-01-16] MEDS ORDERED: diphenhydrAMINE CAP 25 MG CAPSULE PO PRN (17:17)
[2018-01-16] MEDS ORDERED: LORazepam 0.5 MG TABLET PO PRN (17:18)
[2018-01-16 17:25] LABS: Troponin I < 0.015 NG/ML (0.00-0.045)
[2018-01-16] MEDS: BENZONATATE 100 MG CAPSULE PO SCH ×2 (17:31→22:11)
[2018-01-16] MEDS: METOPROLOL SUCCINATE XL 25 MG TABLET PO SCH ×2 (17:31→22:10)
[2018-01-16 19:49] LABS: Troponin I < 0.015 NG/ML (0.00-0.045)
[2018-01-16] MEDS: AMIODARONE INJ 450 MG in DEXTROSE 5% 241 ML IV SCH (20:35)
[2018-01-16] MEDS: MULTIVITAMIN (BEROCCA) TABLET PO SCH (22:11)
[2018-01-16] MEDS: ROSUVASTATIN 20 MG TABLET PO SCH (22:11)
[2018-01-16] MEDS: ASPIRIN EC 81 MG TABLET PO SCH (22:11)
[2018-01-16] MEDS: FINASTERIDE 5 MG TABLET PO SCH (22:11)
[2018-01-16] MEDS: AMIODARONE 200 MG TABLET PO SCH (22:11)
[2018-01-16] MEDS: TAMSULOSIN 0.4 MG CAPSULE PO SCH (22:11)
[2018-01-16] MEDS: APIXABAN 5 MG TABLET PO SCH (22:11)
[2018-01-17] MEDS: guaiFENesin/CODEINE 5 ML LIQUID PO PRN (00:08)
[2018-01-17 03:55] LABS: Basophils # 0.1 10*3/uL (0.0-0.2); Basophils % 0.7 % (0.0-0.8); Eosinophils # 1.9 10*3/uL (0.0-0.87); Eosinophils % 19.3 % (0.00-10.9); Hematocrit 34.5 VOL% (42.0-52.0); Hemoglobin 11.2 GM/DL (14.0-18.0); Immature Granulocytes % 0.3 %; Immature Granulocytes Absolute 0.03 #; Lymphocytes # 1.3 10*3/uL (1.4-4.0); Lymphocytes % 12.8 % (21.2-54.2); Mean Corpuscular HGB Conc 32.5 GM/DL (32-36); Mean Corpuscular Hemoglobin 29 PG (27-34); Mean Corpuscular Volume 89.8 FL (87-102); Mean Platelet Volume 9.2 FL (9.6-12.0); Monocytes # 1.2 10*3/uL (0.11-0.8); Monocytes % 12.3 % (1.7-12.7); Neutrophils # 5.5 10*3/uL (1.4-7.4); Neutrophils % 54.6 % (38.7-73.9); Platelet Count 309 T/CUMM (130-400); Red Blood Count 3.84 MC/CUMM (3.8-5.5); White Blood Count 10.1 T/CUMM (4-12)
[2018-01-17 04:33] LABS: Albumin 2.5 G/DL (3.4-5.0); Bilirubin,Total 0.8 MG/DL (0.2-1.0); Calcium 8.2 MG/DL (8.5-10.1); Osmolality,Calculated 276.5 MOS/KG (273-304); Potassium 4.3 MMOL/L (3.5-5.1); Total Protein 6.3 G/DL (6.4-8.3)
[2018-01-17 04:43] LABS: Eosinophils 24 % (0-10); Hypochromasia 1+; Lymphocytes 14 % (20-55); Platelet Estimate Normal; Segmented Neutrophils 55 % (50-85); Total Cells Counted 100
[2018-01-17] MEDS ORDERED: SODIUM CHLORIDE 0.9% 1,000 ML IV SCH ×3 (09:00→12:30)
[2018-01-17] MEDS ORDERED: MEPERIDINE 25 MG/1 ML VIAL ONE (10:30)
[2018-01-17] MEDS ORDERED: MIDAZOLAM 10 MG/2 ML VIAL ONE (10:31)
[2018-01-17] MEDS ORDERED: MEPERIDINE 25 MG/1 ML VIAL IV ONE (11:04)
[2018-01-17] MEDS ORDERED: MIDAZOLAM 2 MG/2 ML VIAL IV ONE (11:04)
[2018-01-17] MEDS: SPIRONOLACTONE 25 MG TABLET PO SCH (11:32)
[2018-01-17] MEDS: METOPROLOL SUCCINATE XL 25 MG TABLET PO SCH ×2 (11:33→21:13)
[2018-01-17] MEDS: FUROSEMIDE 40 MG TABLET PO SCH (11:33)
[2018-01-17] MEDS: BENZONATATE 100 MG CAPSULE PO SCH ×3 (11:55→21:11)
[2018-01-17] MEDS: PANTOPRAZOLE 40 MG TABLET PO SCH (11:55)
[2018-01-17] MEDS: APIXABAN 5 MG TABLET PO SCH ×2 (11:55→21:12)
[2018-01-17] MEDS: AMIODARONE 200 MG TABLET PO SCH ×2 (11:55→21:12)
[2018-01-17] MEDS: AMIODARONE INJ 450 MG in DEXTROSE 5% 241 ML IV SCH (13:55)
[2018-01-17] MEDS: ASPIRIN EC 81 MG TABLET PO SCH (21:12)
[2018-01-17] MEDS: FINASTERIDE 5 MG TABLET PO SCH (21:12)
[2018-01-17] MEDS: MULTIVITAMIN (BEROCCA) TABLET PO SCH (21:12)
[2018-01-17] MEDS: TAMSULOSIN 0.4 MG CAPSULE PO SCH (21:12)
[2018-01-17] MEDS: ROSUVASTATIN 20 MG TABLET PO SCH (21:12)
[2018-01-18] MEDS: PANTOPRAZOLE 40 MG TABLET PO SCH (09:32)
[2018-01-18] MEDS: guaiFENesin/CODEINE 5 ML LIQUID PO PRN (09:32)
[2018-01-18] MEDS: APIXABAN 5 MG TABLET PO SCH ×2 (09:32→21:17)
[2018-01-18] MEDS: AMIODARONE 200 MG TABLET PO SCH ×2 (09:32→21:17)
[2018-01-18] MEDS: BENZONATATE 100 MG CAPSULE PO SCH ×3 (09:32→21:17)
[2018-01-18] MEDS: METOPROLOL SUCCINATE XL 25 MG TABLET PO SCH ×2 (10:01→11:00)
[2018-01-18] MEDS: FUROSEMIDE 40 MG TABLET PO SCH (10:01)
[2018-01-18] MEDS: SPIRONOLACTONE 25 MG TABLET PO SCH (10:01)
[2018-01-18] MEDS ORDERED: AMIODARONE INJ 150 MG in DEXTROSE 5% 100 ML IV ONE (10:22)
[2018-01-18] MEDS ORDERED: FUROSEMIDE 40 MG/4 ML VIAL IV ONE (15:38)
[2018-01-18] MEDS: BISACODYL 5 MG TABLET PO PRN (16:11)
[2018-01-18] MEDS: METOPROLOL SUCCINATE XL 50 MG TABLET PO SCH (19:02)
[2018-01-18] MEDS: TAMSULOSIN 0.4 MG CAPSULE PO SCH (21:17)
[2018-01-18] MEDS: ASPIRIN EC 81 MG TABLET PO SCH (21:17)
[2018-01-18] MEDS: FINASTERIDE 5 MG TABLET PO SCH (21:17)
[2018-01-18] MEDS: ROSUVASTATIN 20 MG TABLET PO SCH (21:17)
[2018-01-18] MEDS: MULTIVITAMIN (BEROCCA) TABLET PO SCH (21:17)
[2018-01-18] MEDS ORDERED: DILTIAZEM 30 MG TABLET PO PRN (22:28)
[2018-01-19 05:44] LABS: Basophils # 0.1 10*3/uL (0.0-0.2); Basophils % 0.5 % (0.0-0.8); Eosinophils # 1.7 10*3/uL (0.0-0.87); Eosinophils % 12.9 % (0.00-10.9); Hematocrit 37.9 VOL% (42.0-52.0); Hemoglobin 12.5 GM/DL (14.0-18.0); Immature Granulocytes % 0.7 %; Immature Granulocytes Absolute 0.09 #; Lymphocytes # 1.1 10*3/uL (1.4-4.0); Lymphocytes % 8.3 % (21.2-54.2); Mean Corpuscular Hemoglobin 29 PG (27-34); Mean Corpuscular Volume 89.2 FL (87-102); Mean Platelet Volume 9.3 FL (9.6-12.0); Monocytes # 1.4 10*3/uL (0.11-0.8); Monocytes % 11.1 % (1.7-12.7); Neutrophils # 8.6 10*3/uL (1.4-7.4); Neutrophils % 66.5 % (38.7-73.9); Platelet Count 352 T/CUMM (130-400); Red Blood Count 4.25 MC/CUMM (3.8-5.5); Red Cell Distribution Width 11.8 % (9.3-17.3); White Blood Count 12.9 T/CUMM (4-12)
[2018-01-19 06:09] LABS: Calcium 8.5 MG/DL (8.5-10.1); Osmolality,Calculated 274.8 MOS/KG (273-304)
[2018-01-19 06:57] LABS: Band Neutrophils 2 % (0-10); Eosinophils 17 % (0-10); Lymphocytes 13 % (20-55); Platelet Estimate Normal; Segmented Neutrophils 57 % (50-85); Total Cells Counted 100
[2018-01-19] MEDS ORDERED: FUROSEMIDE 40 MG/4 ML VIAL IV SCH (09:00)
[2018-01-19] MEDS ORDERED: DIGOXIN 0.5 MG/2 ML AMP IV ONE (09:05)
[2018-01-19] MEDS: AMIODARONE 200 MG TABLET PO SCH ×2 (10:12→21:40)
[2018-01-19] MEDS: PANTOPRAZOLE 40 MG TABLET PO SCH (10:12)
[2018-01-19] MEDS: METOPROLOL SUCCINATE XL 50 MG TABLET PO SCH ×2 (10:12→21:39)
[2018-01-19] MEDS: DABIGATRAN 150 MG CAPSULE PO SCH ×2 (10:12→21:39)
[2018-01-19] MEDS: SPIRONOLACTONE 25 MG TABLET PO SCH (10:13)
[2018-01-19] MEDS: BENZONATATE 100 MG CAPSULE PO SCH ×3 (10:13→21:39)
[2018-01-19] MEDS ORDERED: SODIUM CHLORIDE 0.45% 1,000 ML IV SCH ×2 (11:00→15:30)
[2018-01-19 12:53] LABS: Eosinophils,Pleural Fluid 12 %; Lymphocytes,Pleural Fluid 58 %; Neutrophils,Pleural Fluid 30 %; RBC,Pleural Fluid > 100000 T/CUMM
[2018-01-19 12:56] LABS: Total Protein,Body Fluid 4.2 G/DL
[2018-01-19] MEDS ORDERED: DIGOXIN 0.25 MG TABLET PO ONE (15:00)
[2018-01-19] MEDS: ASPIRIN EC 81 MG TABLET PO SCH (21:38)
[2018-01-19] MEDS: MULTIVITAMIN (BEROCCA) TABLET PO SCH (21:38)
[2018-01-19] MEDS: FINASTERIDE 5 MG TABLET PO SCH (21:39)
[2018-01-19] MEDS: ROSUVASTATIN 20 MG TABLET PO SCH (21:40)
[2018-01-20 05:40] LABS: Basophils # 0.1 10*3/uL (0.0-0.2); Basophils % 0.6 % (0.0-0.8); Eosinophils # 1.8 10*3/uL (0.0-0.87); Eosinophils % 14.8 % (0.00-10.9); Hematocrit 38.5 VOL% (42.0-52.0); Hemoglobin 12.7 GM/DL (14.0-18.0); Immature Granulocytes % 0.5 %; Immature Granulocytes Absolute 0.06 #; Lymphocytes # 1.2 10*3/uL (1.4-4.0); Lymphocytes % 10.1 % (21.2-54.2); Mean Corpuscular Hemoglobin 29 PG (27-34); Mean Corpuscular Volume 88.3 FL (87-102); Mean Platelet Volume 9.5 FL (9.6-12.0); Monocytes # 1.4 10*3/uL (0.11-0.8); Monocytes % 10.9 % (1.7-12.7); Neutrophils # 7.8 10*3/uL (1.4-7.4); Neutrophils % 63.1 % (38.7-73.9); Platelet Count 376 T/CUMM (130-400); Red Blood Count 4.36 MC/CUMM (3.8-5.5); Red Cell Distribution Width 11.7 % (9.3-17.3); White Blood Count 12.3 T/CUMM (4-12)
[2018-01-20 05:54] LABS: Calcium 8.3 MG/DL (8.5-10.1); Osmolality,Calculated 274.8 MOS/KG (273-304); Potassium 3.8 MMOL/L (3.5-5.1)
[2018-01-20 06:07] LABS: Eosinophils 10 % (0-10); Hypochromasia Slight; Lymphocytes 15 % (20-55); Platelet Estimate Normal; Segmented Neutrophils 69 % (50-85); Total Cells Counted 100
[2018-01-20] MEDS: DABIGATRAN 150 MG CAPSULE PO SCH ×2 (08:12→21:45)
[2018-01-20] MEDS: AMIODARONE 200 MG TABLET PO SCH ×2 (08:13→21:46)
[2018-01-20] MEDS: BENZONATATE 100 MG CAPSULE PO SCH ×3 (08:13→21:48)
[2018-01-20] MEDS: SPIRONOLACTONE 25 MG TABLET PO SCH (08:13)
[2018-01-20] MEDS: METOPROLOL SUCCINATE XL 50 MG TABLET PO SCH ×2 (08:13→21:47)
[2018-01-20] MEDS: PANTOPRAZOLE 40 MG TABLET PO SCH (08:14)
[2018-01-20] MEDS ORDERED: DIGOXIN 0.125 MG TABLET PO ONE (09:11)
[2018-01-20] MEDS: FINASTERIDE 5 MG TABLET PO SCH (21:44)
[2018-01-20] MEDS: ASPIRIN EC 81 MG TABLET PO SCH (21:44)
[2018-01-20] MEDS: ROSUVASTATIN 20 MG TABLET PO SCH (21:46)
[2018-01-20] MEDS: MULTIVITAMIN (BEROCCA) TABLET PO SCH (21:48)
[2018-01-21 05:31] LABS: Basophils # 0.1 10*3/uL (0.0-0.2); Basophils % 0.8 % (0.0-0.8); Eosinophils # 1.5 10*3/uL (0.0-0.87); Eosinophils % 12.1 % (0.00-10.9); Hematocrit 41.8 VOL% (42.0-52.0); Hemoglobin 13.5 GM/DL (14.0-18.0); Immature Granulocytes % 0.5 %; Immature Granulocytes Absolute 0.06 #; Lymphocytes # 1.6 10*3/uL (1.4-4.0); Lymphocytes % 13.2 % (21.2-54.2); Mean Corpuscular HGB Conc 32.3 GM/DL (32-36); Mean Corpuscular Hemoglobin 29 PG (27-34); Mean Corpuscular Volume 88.7 FL (87-102); Mean Platelet Volume 9.1 FL (9.6-12.0); Monocytes # 1.2 10*3/uL (0.11-0.8); Monocytes % 10.4 % (1.7-12.7); Neutrophils # 7.6 10*3/uL (1.4-7.4); Platelet Count 412 T/CUMM (130-400); Red Blood Count 4.71 MC/CUMM (3.8-5.5); Red Cell Distribution Width 11.7 % (9.3-17.3)
[2018-01-21 05:58] LABS: Calcium 8.7 MG/DL (8.5-10.1); Osmolality,Calculated 276.7 MOS/KG (273-304); Potassium 4.5 MMOL/L (3.5-5.1)
[2018-01-21 07:02] LABS: Band Neutrophils 1 % (0-10); Eosinophils 13 % (0-10); Lymphocytes 13 % (20-55); Segmented Neutrophils 63 % (50-85)
[2018-01-21 07:03] LABS: Platelet Estimate Adequate; Total Cells Counted 100
[2018-01-21] MEDS: FUROSEMIDE 40 MG TABLET PO SCH (08:28)
[2018-01-21] MEDS: BISACODYL 5 MG TABLET PO PRN (08:28)
[2018-01-21] MEDS: BENZONATATE 100 MG CAPSULE PO SCH ×3 (08:28→21:25)
[2018-01-21] MEDS: PANTOPRAZOLE 40 MG TABLET PO SCH (08:29)
[2018-01-21] MEDS: METOPROLOL SUCCINATE XL 50 MG TABLET PO SCH ×2 (08:29→21:28)
[2018-01-21] MEDS: AMIODARONE 200 MG TABLET PO SCH ×2 (08:29→21:25)
[2018-01-21] MEDS: DABIGATRAN 150 MG CAPSULE PO SCH ×2 (08:29→21:25)
[2018-01-21] MEDS: SPIRONOLACTONE 25 MG TABLET PO SCH (08:29)
[2018-01-21] MEDS: ROSUVASTATIN 20 MG TABLET PO SCH (21:25)
[2018-01-21] MEDS: ASPIRIN EC 81 MG TABLET PO SCH (21:25)
[2018-01-21] MEDS: MULTIVITAMIN (BEROCCA) TABLET PO SCH (21:25)
[2018-01-21] MEDS: FINASTERIDE 5 MG TABLET PO SCH (21:25)
[2018-01-22 04:35] LABS: Basophils # 0.1 10*3/uL (0.0-0.2); Basophils % 0.8 % (0.0-0.8); Eosinophils # 1.2 10*3/uL (0.0-0.87); Eosinophils % 10.9 % (0.00-10.9); Hematocrit 39.2 VOL% (42.0-52.0); Hemoglobin 13.2 GM/DL (14.0-18.0); Immature Granulocytes % 0.6 %; Immature Granulocytes Absolute 0.07 #; Lymphocytes # 1.4 10*3/uL (1.4-4.0); Lymphocytes % 12.5 % (21.2-54.2); Mean Corpuscular HGB Conc 33.7 GM/DL (32-36); Mean Corpuscular Hemoglobin 30 PG (27-34); Mean Corpuscular Volume 87.7 FL (87-102); Mean Platelet Volume 9.1 FL (9.6-12.0); Monocytes # 1.2 10*3/uL (0.11-0.8); Monocytes % 10.4 % (1.7-12.7); Neutrophils # 7.3 10*3/uL (1.4-7.4); Neutrophils % 64.8 % (38.7-73.9); Platelet Count 388 T/CUMM (130-400); Red Blood Count 4.47 MC/CUMM (3.8-5.5); Red Cell Distribution Width 11.8 % (9.3-17.3); White Blood Count 11.3 T/CUMM (4-12)
[2018-01-22 04:58] LABS: Calcium 8.6 MG/DL (8.5-10.1); Osmolality,Calculated 274.7 MOS/KG (273-304); Potassium 4.1 MMOL/L (3.5-5.1)
[2018-01-22 04:59] LABS: Calcium 8.6 MG/DL (8.5-10.1); Osmolality,Calculated 275.7 MOS/KG (273-304); Potassium 4.1 MMOL/L (3.5-5.1)
[2018-01-22] MEDS ORDERED: LIDOCAINE 1% 20 ML VIAL ONE (07:52)
[2018-01-22] MEDS ORDERED: HEPARIN/NACL 0.9% 2 UNITS/ML 1,000 ML IV ONE (07:52)
[2018-01-22] MEDS ORDERED: HEPARIN/NACL 0.9% 2 UNITS/ML 2,000 ML IV ONE (07:52)
[2018-01-22 08:37] LABS: Apearance,Urine CLEAR (Clear); Bilirubin,Urine Negative (Negative); Blood, Urine Negative (Negative); Glucose,Urine (UA) Negative (Negative); Ketones,Urine Negative (Negative); Nitrite,Urine Negative (Negative); Protein,Urine Negative; RBC,Urine 1 /HPF (0-4); Urine Color Yellow (Yellow); Urine Specific Gravity 1.008 (1.001-1.035); Urine Urobilinogen < 2.0 EU/DL (0.2-1.0)
[2018-01-22] MEDS ORDERED: HEPARIN DRIP 25,000 UNITS/500 ML PREMIX IV ONE (09:15)
[2018-01-22] MEDS ORDERED: ISOPROTERENOL 1 MG/5 ML VIAL IV ONE (10:09)
[2018-01-22] MEDS ORDERED: ZALEPLON 5 MG CAPSULE PO PRN (11:29)
[2018-01-22] MEDS ORDERED: ASPIRIN EC 325 MG TABLET PO ONE (11:29)
[2018-01-22] MEDS: AMIODARONE 200 MG TABLET PO SCH (11:55)
[2018-01-22] MEDS: METOPROLOL SUCCINATE XL 50 MG TABLET PO SCH (11:55)
[2018-01-22] MEDS: BENZONATATE 100 MG CAPSULE PO SCH ×3 (13:08→21:09)
[2018-01-22] MEDS: PANTOPRAZOLE 40 MG TABLET PO SCH ×2 (13:10→21:09)
[2018-01-22] MEDS: DABIGATRAN 150 MG CAPSULE PO SCH (13:10)
[2018-01-22] MEDS: FUROSEMIDE 40 MG TABLET PO SCH (14:39)
[2018-01-22] MEDS: SPIRONOLACTONE 25 MG TABLET PO SCH (14:39)
[2018-01-22] MEDS ORDERED: PHENYLEPHRINE 10 MG/1 ML VIAL IV ONE (14:42)
[2018-01-22] MEDS ORDERED: PROPOFOL 200 MG/20 ML VIAL IV ONE (14:42)
[2018-01-22] MEDS ORDERED: HEPARIN 10,000 UNIT/10 ML VIAL ONE (14:42)
[2018-01-22] MEDS ORDERED: MIDAZOLAM 2 MG/2 ML VIAL ONE (14:42)
[2018-01-22] MEDS ORDERED: SEVOFLURANE 1 UNIT/15 MINUTE INH ONE (14:42)
[2018-01-22] MEDS ORDERED: ONDANSETRON 4 MG/2 ML VIAL ONE (14:42)
[2018-01-22] MEDS ORDERED: LACTATED RINGERS 2,000 ML IV ONE (14:43)
[2018-01-22] MEDS ORDERED: SODIUM CHLORIDE 0.9% 250 ML IV ONE (14:43)
[2018-01-22] MEDS ORDERED: PHENYLEPHRINE 1 MG/10 ML SYRINGE IV ONE (14:43)
[2018-01-22] MEDS ORDERED: PROTAMINE SULFATE 50 MG/5 ML VIAL IV ONE (14:43)
[2018-01-22] MEDS ORDERED: ROCURONIUM 100 MG/10 ML VIAL IV ONE (14:43)
[2018-01-22] MEDS ORDERED: fentaNYL 100 MCG/2 ML VIAL ONE (14:48)
[2018-01-22] MEDS: ASPIRIN EC 81 MG TABLET PO SCH (21:09)
[2018-01-22] MEDS: ROSUVASTATIN 20 MG TABLET PO SCH (21:09)
[2018-01-22] MEDS: FINASTERIDE 5 MG TABLET PO SCH (21:09)
[2018-01-22] MEDS: APIXABAN 5 MG TABLET PO SCH (21:09)
[2018-01-22] MEDS: MULTIVITAMIN (BEROCCA) TABLET PO SCH (21:09)
[2018-01-22] MEDS: METOPROLOL SUCCINATE XL 100 MG TABLET PO SCH (21:10)
[2018-01-23] MEDS: guaiFENesin/CODEINE 5 ML LIQUID PO PRN (01:28)
[2018-01-23 05:23] LABS: Basophils # 0.1 10*3/uL (0.0-0.2); Basophils % 0.7 % (0.0-0.8); Eosinophils # 0.4 10*3/uL (0.0-0.87); Eosinophils % 3.5 % (0.00-10.9); Hematocrit 32.6 VOL% (42.0-52.0); Hemoglobin 10.8 GM/DL (14.0-18.0); Immature Granulocytes % 0.5 %; Immature Granulocytes Absolute 0.06 #; Lymphocytes # 1.2 10*3/uL (1.4-4.0); Lymphocytes % 9.6 % (21.2-54.2); Mean Corpuscular HGB Conc 33.1 GM/DL (32-36); Mean Corpuscular Hemoglobin 29 PG (27-34); Mean Corpuscular Volume 88.3 FL (87-102); Mean Platelet Volume 9.2 FL (9.6-12.0); Monocytes # 1.4 10*3/uL (0.11-0.8); Monocytes % 11.5 % (1.7-12.7); Neutrophils % 74.2 % (38.7-73.9); Platelet Count 337 T/CUMM (130-400); Red Blood Count 3.69 MC/CUMM (3.8-5.5); Red Cell Distribution Width 11.9 % (9.3-17.3); White Blood Count 12.1 T/CUMM (4-12)
[2018-01-23 05:52] LABS: Calcium 7.7 MG/DL (8.5-10.1); Potassium 4.1 MMOL/L (3.5-5.1)
[2018-01-23] MEDS ORDERED: IBUPROFEN 400 MG TABLET PO PRN (07:53)
[2018-01-23] MEDS ORDERED: LISINOPRIL 2.5 MG TABLET PO SCH (09:00)
[2018-01-23] MEDS: FUROSEMIDE 40 MG TABLET PO SCH (09:03)
[2018-01-23] MEDS: BENZONATATE 100 MG CAPSULE PO SCH ×2 (09:03→14:53)
[2018-01-23] MEDS: SPIRONOLACTONE 25 MG TABLET PO SCH (09:04)
[2018-01-23] MEDS: PANTOPRAZOLE 40 MG TABLET PO SCH (09:04)
[2018-01-23] MEDS: METOPROLOL SUCCINATE XL 100 MG TABLET PO SCH (09:04)
[2018-01-23] MEDS: APIXABAN 5 MG TABLET PO SCH (09:04)
[2018-01-23 16:16] VITALS: BP 95/45
[2018-01-23] MEDS ORDERED: TAMSULOSIN 0.4 MG CAPSULE PO SCH (21:00)
== END 2018-01-23 17:50 | disposition home or self-care (01) | DRG 273 ==
LOC: N.EDINP 11:08 → N.ED 11:08 → N.2W 13:37 → N.TELES 15:01
PROVIDERS: ADMIT Internal Medicine Cardiovascular Disease; ATTEND Internal Medicine Cardiovascular Disease